=== PATIENT | male | born 1945 | race Caucasian/White ===

== ENCOUNTER 2018-06-26 09:42 | Inpatient (IN) | payer MEDICARE, OTHER ==
[~2018-06-26] VITALS: Ht 180.3 cm; Wt 77.6 kg
[~2018-06-26 09:42] MED LIST: ADULT LOW DOSE81 MG; ATIVAN; BACLOFEN 10MG T10 M1; DILAUDID2 M1 PO; HYDROCODON-ACE1 EACH; LASIX 40 MG TAB40 M2 PO; METFORMIN; PLAVIX 75 MG TA75 M1 PO
[2018-06-26 09:45] VITALS: BP 115/76
[2018-06-26] MEDS ORDERED: SYNTHROID50 MCG PO (09:55)
[2018-06-26] MEDS ORDERED: WELLBUTRIN SR150 MG PO (09:56)
[2018-06-26] MEDS ORDERED: CELEXA40 MG PO (09:56)
[2018-06-26] MEDS ORDERED: LIPITOR40 MG PO (09:57)
[2018-06-26] MEDS ORDERED: SINGULAIR 10 MG10 M1 PO (09:57)
[2018-06-26] MEDS ORDERED: ASPIR 8181 M1 PO (09:57)
[2018-06-26] MEDS ORDERED: PACERONE 200 M200 M1 PO (09:58)
[2018-06-26] MEDS ORDERED: LASIX 40 MG TAB40 M2 PO (09:58)
[2018-06-26] MEDS ORDERED: CARVEDILOL12.5 MG PO (09:58)
[2018-06-26] MEDS ORDERED: NITROFURANTOIN100 MG PO (09:59)
[2018-06-26] MEDS ORDERED: BROVANA15 MCG/2 M INH (09:59)
[2018-06-26] MEDS ORDERED: K-DUR 20 MEQ T20 MEQ PO (09:59)
[2018-06-26] MEDS ORDERED: DILAUDID 2 MG TA2 MG PO (10:00)
[2018-06-26] MEDS ORDERED: HYDROXYZINE HCL25 M1 PO (10:00)
[2018-06-26] MEDS ORDERED: PULMICORT0.5 MG/22 INH (10:00)
[2018-06-26] MEDS ORDERED: MUCUS RELIEF C400 MG PO (10:23)
[2018-06-26 10:38] LABS: BE 2.3 mmol/L (-2 to +3); PCO2 35.3 mmHg (35.0-45.0); PO2 77.5 mmHg (75.0-100.0); pH 7.479 (7.340-7.450)
[2018-06-26 11:49] LABS: ABSOLUTE BASOPHILS 0.1 thou/uL (0.0-0.2); ABSOLUTE EOSINOPHILS 0.2 thou/uL (0.0-0.7); ABSOLUTE LYMPHOCYTES 1.6 thou/uL (0.8-5.3); ABSOLUTE NEUTROPHILS 11.8 thou/uL (1.6-8.1); BASOPHILS 0.6 %; EOSINOPHILS 1.1 %; HEMATOCRIT 37.3 % (42.0-52.0); HEMOGLOBIN 11.7 gm/dL (14.0-18.0); LYMPHOCYTES 10.7 %; MCH 26.1 pg (26.0-34.0); MCHC 31.2 g/dL (28.0-37.0); MCV 83.7 fL (80.0-100.0); MONOCYTES 6.9 %; MPV 7.3 fl. (7.2-11.1); NUCLEATED RBCS 0 /100WBC; PLATELET COUNT* 471 thou/uL (150-400); POLYS 80.7 %; RBC 4.46 mil/uL (4.50-6.00); RDW-CV 15.6 % (10.5-14.5); WBC 14.6 thou/uL (4.0-11.0)
[2018-06-26 12:03] LABS: ALBUMIN 3.2 g/dL (3.4-5.0); CALCIUM 8.4 mg/dL (8.5-10.1); CREATININE 1.2 mg/dL (0.6-1.3); MAGNESIUM 2.1 mg/dL (1.8-2.4); POTASSIUM 4.4 mmol/L (3.5-5.1); TOTAL BILIRUBIN 0.5 mg/dL (<0.1-1.0); TOTAL PROTEIN 7.2 g/dL (6.4-8.2)
[2018-06-26 12:18] LABS: URINE BILIRUBIN NEGATIVE (Negative); URINE BLOOD NEGATIVE (Negative); URINE CLARITY CLEAR; URINE COLOR YELLOW; URINE GLUCOSE-RANDOM NEGATIVE (Negative); URINE KETONES NEGATIVE (Negative); URINE LEUKOCYTES-REFLEX TRACE (Negative); URINE NITRITE-REFLEX NEGATIVE (Negative); URINE PROTEIN NEGATIVE (Negative); URINE UROBILINOGEN 0.2 E.U./dl (0.2-1.0)
[2018-06-26 12:37] LABS: SQUAMOUS 0-3 Few /LPF (0-3)
[2018-06-26 12:38] LABS: BACTERIA-REFLEX 1-9 Few /HPF (None Seen); MUCUS 0-3 Light strn/LPF (None Seen); URINE RBC 0-2 Rare /HPF (0-2); URINE WBC-REFLEX 6-15 Few /HPF (0-5)
[2018-06-26 12:39] LABS: CRYSTALS None Seen /LPF (None Seen); HYALINE CASTS 0-3 Few /LPF (None Seen)
[2018-06-26 14:30] VITALS: BP 107/59
[2018-06-26 14:43] VITALS: BP 105/51
[2018-06-26 20:00] VITALS: BP 112/60
[2018-06-27 08:10] VITALS: BP 98/62
--- NOTE | 2018-06-27 13:01 | EKG ---
[place] [address] ELECTROCARDIOGRAM REPORT Name: TONY TONEY Room: [address] ADM IN M.R.#: [id number] Admission: 06/26/18 Attend Phys: Melani Saucedo MD Discharge: Date of : 45 Report #: [id number] THIS REPORT FOR: //name// [facility] ED Test Date: 2018-06-26 Test Time: 09:49:51 Pat Name: TONY TONEY Department: Room: [address] Gender: M Slitter Operator: Alton TORRE : 1945 Requested By: Lindy Hoyos Order Number: [id number] Lizbeth MD: Tony Dockery Measurements Intervals [place] Rate: 70 P: 38 KS: 222 QRS: 4 QRSD: 117 T: -38 QT: 498 QTc: 538 Interpretive Statements Sinus tachycardia Prolonged KS interval Probable left atrial enlargement artifact noted Inferior infarct, age indeterminate No previous ECG available for comparison Electronically Signed On 06-27-2018 13:01:09 CDT by Tony Dockery [email or web address] <ELECTRONICALLY SIGNED> By: Tony Dockery MD, [facility] 06/27/18 1301 0949 0949 Tony Dockery MD, [facility] /EPI
[2018-06-27 16:18] VITALS: BP 106/67
[2018-06-27 20:00] VITALS: BP 126/67
[2018-06-28 07:40] VITALS: BP 124/61
[2018-06-28 20:00] VITALS: BP 114/70
[2018-06-29 04:49] LABS: HEMATOCRIT 38.7 % (42.0-52.0); HEMOGLOBIN 12.4 gm/dL (14.0-18.0); MCHC 31.9 g/dL (28.0-37.0); MCV 84.5 fL (80.0-100.0); MPV 7.7 fl. (7.2-11.1); RBC 4.58 mil/uL (4.50-6.00); RDW-CV 15.7 % (10.5-14.5)
[2018-06-29 05:06] LABS: CALCIUM 8.6 mg/dL (8.5-10.1); CREATININE 1.2 mg/dL (0.6-1.3); MAGNESIUM 2.7 mg/dL (1.8-2.4); POTASSIUM 4.6 mmol/L (3.5-5.1)
[2018-06-29 08:00] VITALS: BP 107/64; BP 138/64
--- NOTE | 2018-06-29 12:01 | CON ---
[address] [address] CONSULTATION Name: TONY TONEY Room: [address] IN .R.#: [id number] Admission: 06/26/18 Attend Phys: Melani Saucedo MD Discharge: Date of : 45 Report #: [id number] THIS REPORT FOR: //name// CC: Neel Saucedo DATE OF SERVICE: 06/28/2018 INFECTIOUS DISEASE CONSULTATION REASON FOR EVALUATION: Suspected infection that has been complicated by fairly profound encephalopathy. HISTORY OF PRESENT ILLNESS: Chart reviewed, patient examined. This is a 73-year-old gentleman. History is obtained from his spouse. He has a fairly significant medical history of late. Apparently, he had an injury involving a fall with hip fracture, which led to operative repair and at least 2 stents in the rehabilitation unit. He was at home after being discharged and clearly was becoming weaker and more confused. It is not certain if he was having fevers. He had a poor p.o. intake at least for a week or 2 prior to his readmission. On evaluation, he was found to have some moderate pyuria. Chest x-ray, some chronic changes, which I think acute. He does have longstanding issues with back pain. Has had at least 5 surgeries and he does wear a brace. He has a pain pump as well and a pacemaker. Per spouse, none of these surgeries were directly related to infectious complications. He was started empirically on therapy with ceftriaxone. Blood and urine cultures are pending. Presently, he is undergoing evaluation for profound neurological deficits with EEG, markedly loosening last evening and required psychotropic medicines. Per spouse, his baseline is normal mentation. He is able to do activities, however, has limitations due to his underlying physical disability. ALLERGIES: LISTED TO PENICILLIN, UNCLEAR. SPOUSE DESCRIBES A RASH, ALTHOUGH WAS A NUMBER OF YEARS AGO, ALSO TETANUS. MEDICATIONS: Include p.r.n. analgesics, antiemetics, anxiolytics, ipratropium and albuterol inhaler, aspirin, atorvastatin, bupropion, citalopram, clopidogrel, levothyroxine, furosemide, amiodarone, montelukast, ceftriaxone, carvedilol and then received Haldol as well. PAST MEDICAL HISTORY: The patient has known vasculopathy with coronary artery disease, previous acute myocardial infarction, history of stents, COPD. PAST SURGICAL HISTORY: Back surgery, recent hip fracture. SOCIAL HISTORY: Former sm[place] [address] CONSULTATION Name: DAWNATONY Carolann Room: [address]#: [id number] Admission: 06/26/18 Attend Phys: Melani Saucedo MD Discharge: Date of : 45 Report #: [id number] FAMILY HISTORY: Noncontributory. REVIEW OF SYSTEMS: Not obtainable. PHYSICAL EXAMINATION: GENERAL: Again, as noted above, he is undergoing EEG. He appears chronically ill, undernourished. He is sedated. He is not on any supplemental oxygen. VITAL SIGNS: Temperature 96.8, pulse 70, respirations 22, blood pressure 124/61. SKIN: Extensive contused areas, particularly of the upper extremities. Some eschars consistent with his recent hospitalization and stay in facilities. HEENT: Of note, his spouse states that he has dentures and has it for a long time. NECK: Appears to be supple. LUNGS: Somewhat diminished, otherwise clear breath sounds. HEART: Regular with a soft systolic murmur. ABDOMEN: Soft. There are no apparent peritoneal signs. EXTREMITIES: Lower extremities, mild amount of edema. GENITOURINARY: Deferred. RECTAL: Deferred. LABORATORY DATA: Blood cultures are sterile thus far. CT of the head showed atrophic changes, no acute process. Urinalysis 6-15 white cells, 1-9 bacteria, negative for nitrites and protein. TSH elevated at 18.566, free T4 at 1.05. Lactic acid 1.1. Electrolytes: Sodium 136, potassium 4.4, chloride 99, bicarbonate is 30, anion gap of 7, BUN and creatinine 18 and 1.2, glucose of 96. AST of 108, ALT of 166, albumin of 3.2, total protein 7.2. CBC: White count of 14.6, H and H 11.7 and 37.3, platelets 471. Differential showed neutrophilia, otherwise unremarkable. Chest showed patchy interstitial fibrosis without acute process. ABGs: pH 7.479, pCO2 of 35.3, pO2 of 77.5 on 4 liters. ASSESSMENT: Marked encephalopathy, may well be multifactorial. Certainly can exclude occult infectious process, complicated urinary tract infection would be the most likely, I think in this setting, although he has been hallucinating, there may well be some multifactorial etiology including medicines. We will continue ceftriaxone for now and we will await urine and blood cultures. Certainly, he has other foci of concern including hip as well as lower back. Could consider a lumbar puncture if signs and symptoms persist at this point, not entirely sure if it is meningitis. Would certainly consider starting systemic acyclovir as well. 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 <ELECTRONICALLY SIGNED> By: Everton De Jesus MD 06/29/18 1201 1308 0400Josereza De Jesus MD /nam
[2018-06-29 13:29] LABS: URINE BILIRUBIN NEGATIVE (Negative); URINE BLOOD NEGATIVE (Negative); URINE CLARITY CLEAR; URINE COLOR YELLOW; URINE GLUCOSE-RANDOM NEGATIVE (Negative); URINE KETONES NEGATIVE (Negative); URINE LEUKOCYTES-REFLEX NEGATIVE (Negative); URINE NITRITE-REFLEX NEGATIVE (Negative); URINE PROTEIN NEGATIVE (Negative); URINE SPECIFIC GRAVITY 1.015 (1.005-1.030); URINE UROBILINOGEN 0.2 E.U./dl (0.2-1.0)
[2018-06-29 16:02] VITALS: BP 102/62
[2018-06-29 20:30] VITALS: BP 100/52
[2018-06-30 08:00] VITALS: BP 92/40
[2018-06-30 09:00] VITALS: BP 108/59
[2018-06-30 16:09] VITALS: BP 112/71
[2018-06-30 20:15] VITALS: BP 119/65
[2018-07-01 12:11] VITALS: BP 114/59
--- NOTE | 2018-07-01 14:34 | 2DMMODE ---
[place] [address] 2 D/M-MODE ECHOCARDIOGRAM Name: TONY TONEY Room: [address] IN [facility]#: [id number] Admission: 06/26/18 Attend Phys: Melani Saucedo, Discharge: Date of : 45 Date of Service: 07/01/18 1434 Report #: [id number] THIS REPORT FOR: //name// APPROVED REPORT Study performed: 07/01/2018 11:17:00 EXAM: Comprehensive 2D, Doppler, and color-flow Echocardiogram Patient Location: In-Patient Room #: [facility] Status: routine BSA: 2.01 HR: 70 bpm BP: 114/595 mmHg Rhythm: NSR Other Information Study Quality: Good Indications Congestive Heart Failure CVA/TIA Echo Enhancing Agent Indication: Rule out Shunt Agent(s) / Amount(s) Used: Agitated Saline 10 cc 2D Dimensions IVSd: 13.23 (7-11mm) LVOT Diam: 21.11 (18-24mm) LVDd: 59.73 mm PWd: 9.68 (7-11mm) Ascending Ao: 31.65 (22-36mm) LVDs: 44.90 (25-40mm) Aortic Root: 31.84 mm Volumes Left Atrial Volume (Systole) LA ESV Index: 30.30 mL/m2 Aortic Valve AoV Peak Watson.: 1.20 m/s AO Peak Gr.: 5.81 mmHg LVOT Max P.73 mmHg AO Mean Gr.: 3.63 mmHg LVOT Mean P.34 mmHg LVOT Max V: 0.83 m/s AO V2 VTI: 20.51 cm LVOT Mean V: 0.53 m/s ANGELA (VTI): 2.47 cm2 LVOT V1 VTI: 14.44 [place] [address] 2 D/M-MODE ECHOCARDIOGRAM Name: TONY TONEY Room: [address] IN .R.#: [id number] Admission: 06/26/18 Attend Phys: Melani Saucedo, Discharge: Date of : 45 Date of Service: 07/01/18 1434 Report #: [id number] Mitral Valve E/A Ratio: 0.60 MV Decel. Time: 113.66 ms MV E Max Watson.: 0.49 m/s MV PHT: 32.96 ms MVA (PHT): 6.67 cm2 TDI E/Medial E': 8.17 Medial E' Watson.: 0.06 m/s Tricuspid Valve RAP Estimate: 5.00 mmHg TR Peak Gr.: 23.10 mmHg RVSP: 28.00 mmHg PA Pressure: 28.00 mmHg Left Ventricle The left ventricle is normal size. There is inferobasilar and septal hypokinesis. There is normal left ventricular wall thickness. Left ventricular systolic function is moderately decreased. LVEF is 40%. Grade I - abnormal relaxation pattern. Right Ventricle The right ventricle is normal size. The right ventricular systolic function is normal. Atria The left atrium size is normal. The right atrium size is normal. Aortic Valve Mild aortic valve sclerosis. No aortic regurgitation is present. There is no aortic valvular stenosis. Mitral Valve The mitral valve is normal in structur Moderate mitral annular calcification. Moderate mitral annular calcification. Moderate mitral annular calcification. There is no mitral valve regurgitation noted. No evidence of mitral valve stenosis. Tricuspid Valve The tricuspid valve is normal in structure. Trace tricuspid regurgitation. No pulmonary hypertension[place] [address] 2 D/M-MODE ECHOCARDIOGRAM Name: TONY TONEY Room: [address]#: [id number] Admission: 06/26/18 Attend Phys: Melani Saucedo, Discharge: Date of : 45 Date of Service: 07/01/18 1434 Report #: [id number] The pulmonary valve is normal in structure. There is no pulmonic valvular regurgitation. Great Vessels The aortic root is normal in size. IVC is normal in size and collapses >50% with inspiration. Pericardium There is no pericardial effusion. <Conclusion> The left ventricle is normal size. There is normal left ventricular wall thickness. Left ventricular systolic function is moderately decreased. LVEF is 40%. Grade I - abnormal relaxation pattern. The right ventricle is normal size. The left atrium size is normal. Mild aortic valve sclerosis. No aortic regurgitation is present. There is no aortic valvular stenosis. Moderate mitral annular calcification. There is no mitral valve regurgitation noted. No evidence of mitral valve stenosis. The tricuspid valve is normal in structure. IVC is normal in size and collapses >50% with inspiration. There is no pericardial effusion. There is inferobasilar and septal hypokinesis. <ELECTRONICALLY SIGNED> By: Neel Quiros MD, FACC 07/01/18 1434 1434 1434 Neel Quiros MD, FACC /INF
[2018-07-01 15:18] VITALS: BP 122/70
[2018-07-01 19:45] VITALS: BP 99/61
[2018-07-02 05:36] LABS: ANION GAP 7 mmol/L (7-16); BUN 24 mg/dL (7-18); CALCIUM 8.3 mg/dL (8.5-10.1); CHLORIDE 104 mmol/L (98-107); CHOLESTEROL 126 mg/dL (<200); CO2 26 mmol/L (21-32); CREATININE 1.5 mg/dL (0.6-1.3); GLUCOSE 107 mg/dL (70-99); HDL CHOLESTEROL 51 mg/dL (>40); LDL CHOLESTEROL 60 mg/dL (<100); SODIUM 137 mmol/L (136-145); TC:HDL 2.5 Ratio (Not establshd); TRIGLYCERIDE 76 mg/dL (<150); VLDL 15 mg/dL (<40)
[2018-07-02 05:44] LABS: SERUM ASSESSMENT Clear
[2018-07-02 06:09] LABS: ABSOLUTE BASOPHILS 0.1 thou/uL (0.0-0.2); ABSOLUTE EOSINOPHILS 0.5 thou/uL (0.0-0.7); ABSOLUTE LYMPHOCYTES 1.7 thou/uL (0.8-5.3); ABSOLUTE MONOCYTES 0.7 thou/uL (0.0-1.2); ABSOLUTE NEUTROPHILS 8.2 thou/uL (1.6-8.1); BASOPHILS 0.6 %; EOSINOPHILS 4.8 %; HEMATOCRIT 33.4 % (42.0-52.0); HEMOGLOBIN 10.5 gm/dL (14.0-18.0); LYMPHOCYTES 14.8 %; MCH 26.8 pg (26.0-34.0); MCHC 31.4 g/dL (28.0-37.0); MCV 85.2 fL (80.0-100.0); MONOCYTES 6.3 %; MPV 8.1 fl. (7.2-11.1); NUCLEATED RBCS 0 /100WBC; PLATELET COUNT* 321 thou/uL (150-400); POLYS 73.5 %; RBC 3.92 mil/uL (4.50-6.00); RDW-CV 15.8 % (10.5-14.5); WBC 11.2 thou/uL (4.0-11.0)
[2018-07-02 16:08] VITALS: BP 87/51
[2018-07-02 20:10] VITALS: BP 143/78
[2018-07-03 09:00] VITALS: BP 109/54
[2018-07-03 09:22] LABS: CALCIUM 8.3 mg/dL (8.5-10.1); CREATININE 1.1 mg/dL (0.6-1.3); MAGNESIUM 2.1 mg/dL (1.8-2.4); POTASSIUM 4.2 mmol/L (3.5-5.1)
[2018-07-03 20:00] VITALS: BP 121/57
[2018-07-04 04:44] LABS: ABSOLUTE BASOPHILS 0.1 thou/uL (0.0-0.2); ABSOLUTE EOSINOPHILS 0.5 thou/uL (0.0-0.7); ABSOLUTE LYMPHOCYTES 1.5 thou/uL (0.8-5.3); ABSOLUTE MONOCYTES 0.9 thou/uL (0.0-1.2); ABSOLUTE NEUTROPHILS 6.2 thou/uL (1.6-8.1); BASOPHILS 1.1 %; EOSINOPHILS 5.1 %; HEMATOCRIT 33.1 % (42.0-52.0); HEMOGLOBIN 10.4 gm/dL (14.0-18.0); LYMPHOCYTES 15.9 %; MCH 26.6 pg (26.0-34.0); MCHC 31.3 g/dL (28.0-37.0); MONOCYTES 9.7 %; MPV 7.6 fl. (7.2-11.1); NUCLEATED RBCS 0 /100WBC; PLATELET COUNT* 319 thou/uL (150-400); POLYS 68.2 %; RBC 3.89 mil/uL (4.50-6.00); RDW-CV 15.4 % (10.5-14.5); WBC 9.1 thou/uL (4.0-11.0)
[2018-07-04 05:12] LABS: CALCIUM 8.2 mg/dL (8.5-10.1); MAGNESIUM 1.8 mg/dL (1.8-2.4)
[2018-07-04 08:00] VITALS: BP 124/61
[2018-07-04] MEDS ORDERED: REMERON15 MG PO (11:27)
[2018-07-04] MEDS ORDERED: CYMBALTA30 MG PO (11:27)
[2018-07-04] MEDS ORDERED: FLEXERIL PO (11:27)
[2018-07-04] MEDS ORDERED: MIRALAX17 GM PO (11:27)
[2018-07-04] MEDS ORDERED: FOLIC ACID1 MG PO (11:27)
[2018-07-04] MEDS ORDERED: SENNA PLUS TAB1 EACH PO (11:27)
[2018-07-04] MEDS ORDERED: PROTONIX 20 MG20 M1 PO (11:33)
--- NOTE | 2018-07-04 13:37 | EEG ---
[address] [address] EEG STUDY REPORT Name: TONY TONEY Room: [address] IN M.R.#: [id number] Admission: 06/26/18 Attend Phys: Melani Saucedo MD Discharge: Date of : 45 Report #: [id number] THIS REPORT FOR: //name// CC: Neel Saucedo DATE OF SERVICE: 06/28/2018 This patient is being evaluated for altered mental status. EEG was done by placing the electrode by standard 10-20 system of electrode placement. Both referential and sequential montages were used for recording. Background activity in this patient's EEG is about 8 Hz and 30 microvolt. It is a symmetrical activity. The patient went to sleep that is associated with bilateral slowing and vertex sharp waves. Photic stimulation is unremarkable. Throughout the record, no active epileptiform activity was noticed. IMPRESSION: This patient's electroencephalogram is intermixed with slowing on both sides. That is a nonspecific abnormality, which can occur with encephalopathy, effect of psychotropic medication, dementia, etc. Clinical correlation is recommended. <ELECTRONICALLY SIGNED> By: Fran Bowser MD 07/04/18 1337 1242 1315Fran Bowser MD /nt
--- NOTE | 2018-07-04 13:37 | CON ---
[address] [address] CONSULTATION Name: TONY TONEY Room: [address] IN .R.#: [id number] Admission: 06/26/18 Attend Phys: Melani Saucedo MD Discharge: Date of : 45 Report #: [id number] THIS REPORT FOR: //name// CC: Neel Saucedo DATE OF SERVICE: 06/28/2018 HISTORY OF PRESENT ILLNESS: This is a 73-year-old male patient who was evaluated by me for altered mental status. The provides history. It looks like the patient had been in the hospitals for sometime now. He fell and broke his hip in March. He did have some head injury at that time. Since then, his mentation has not been good. He is not remembering months and days. I do not know which hospital he was in when he had head injury. He was taken to [facility] who found his potassium was low and they replaced the potassium. His potassium has been normal. He continued to do poorly. He has never been diagnosed with dementia as I understand from the patient's . This problem is going on for some time but the last night, he got agitated and confused. REVIEW OF SYSTEMS: Indicate that he had a hip problem. He has a pain pump. He has some metal in his spine, which was put long time ago. He has a pacemaker and defibrillator according to the patient's . Therefore, he is not a candidate for any MRI. The best I can tell, I do not think his memory was normal before he came in. He does have liver function abnormalities. He has a thyroid problem here. He has on the EKG and inferior infarct and left atrial enlargement. That is all the history I can get. REVIEW OF SYSTEMS: I touched 14-point review of system. The patient will not provide any and this is all I can get from the patient's and from the record. PAST MEDICAL HISTORY: Positive for broken hip and multiple metal in the body with contraindication for MRI. FAMILY HISTORY: Negative for early age stroke. SOCIAL HISTORY: The patient is and the provided most of the history. Apparently, he does not abuse the alcohol. PHYSICAL EXAMINATION: NEUROLOGICAL: Limited because he refused to cooperate. He is sleepy. He wakes up. When I told him to cooperate with me, he said he will not do it today. Cranial nerve examination 2 through 12 was attempted, but he refused to cooperate. It looks like he moves both sides, but he refused to cooperate with the sensation, reflexes and tone. There is no meningeal sign in as much [place] [address] CONSULTATION Name: TONY TONEY Room: [address] IN .R.#: [id number] Admission: 06/26/18 Attend Phys: Melani Saucedo MD Discharge: Date of : 45 Report #: [id number]. CARDIORESPIRATORY: Cardiac and respiratory examinations appear noncontributory. LABORATORY DATA: His white count is high at 14.6 and sodium is normal. RADIOLOGICAL DATA: He did have a CT scan on admission and that showed atrophy. IMPRESSION AND PLAN: I think this patient has significant encephalopathy. He is having some jerking and will get an electroencephalogram done to see if that shows any seizure activity. His problem appeared to be sepsis and we will suggest considering an Infectious Disease consult in this patient. Central nervous system infections appear less likely. I talked all of it with the and she wants to follow this plan and MRI is desirable in this patient, but cannot be done with so many metals and contraindication. All of it was discussed with the in detail. More than 50 minutes of time was spent taking care of this patient today and majority of that time was spent counseling and coordinating the patient's care. <ELECTRONICALLY SIGNED> By: Fran Bowser MD 07/04/18 1337 1057 0400Fran Bowser MD /nt
[2018-07-04 17:57] VITALS: BP 124/61
[2018-07-04 17:58] VITALS: BP 124/61
[2018-07-04 18:20] VITALS: BP 124/61
== END 2018-07-04 18:10 | DRG 871 ==
LOC: EDBD 09:42 → M.ERS 09:42 → M.ORTHSURG 12:23 → M.TBA-ER 12:23 → M.ORTHSURG 14:45
PROVIDERS: Family Medicine; Personal Emergency Response Attendant; ADMIT Internal Medicine
DX: A41.9 Sepsis, unspecified organism (principal); G92 Toxic encephalopathy; J15.6 Pneumonia due to other Gram-negative bacteria; N17.0 Acute kidney failure with tubular necrosis; N39.0 Urinary tract infection, site not specified; J96.11 Chronic respiratory failure with hypoxia; J44.0 Chronic obstructive pulmonary disease with (acute) lower respiratory infection; R26.9 Unspecified abnormalities of gait and mobility; I25.10 Atherosclerotic heart disease of native coronary artery without angina pectoris; K59.03 Drug induced constipation; K31.89 Other diseases of stomach and duodenum; M21.371 Foot drop, right foot; N18.3 Chronic kidney disease, stage 3 (moderate); T40.2X5A Adverse effect of other opioids, initial encounter; M54.9 Dorsalgia, unspecified; G89.29 Other chronic pain; F03.90 Unspecified dementia, unspecified severity, without behavioral disturbance, psychotic disturbance, mood disturbance, and anxiety; R74.0 Nonspecific elevation of levels of transaminase and lactic acid dehydrogenase [LDH]; K59.01 Slow transit constipation; I25.2 Old myocardial infarction; Z95.5 Presence of coronary angioplasty implant and graft; Z79.82 Long term (current) use of aspirin; Z88.0 Allergy status to penicillin; Z88.7 Allergy status to serum and vaccine; Z88.8 Allergy status to other drugs, medicaments and biological substances; Z87.891 Personal history of nicotine dependence; Y92.89 Other specified places as the place of occurrence of the external cause

== ENCOUNTER 2018-07-04 16:01 | Inpatient (IN) | payer MEDICARE, OTHER ==
[~2018-07-04] VITALS: Ht 180.3 cm; Wt 80.3 kg
[~2018-07-04 16:01] MED LIST changes: +ASPIR 8181 M1 PO; +BROVANA15 MCG/2 M INH; +CARVEDILOL12.5 MG PO; +CELEXA40 MG PO; +CYMBALTA30 MG PO; +DILAUDID 2 MG TA2 MG PO; +FLEXERIL PO; +FOLIC ACID1 MG PO; +HYDROXYZINE HCL25 M1 PO; +K-DUR 20 MEQ T20 MEQ PO; +LIPITOR40 MG PO; +MIRALAX17 GM PO; +MUCUS RELIEF C400 MG PO; +NITROFURANTOIN100 MG PO; +PACERONE 200 M200 M1 PO; +PROTONIX 20 MG20 M1 PO; +PULMICORT0.5 MG/22 INH; +REMERON15 MG PO; +SENNA PLUS TAB1 EACH PO; +SINGULAIR 10 MG10 M1 PO; +SYNTHROID50 MCG PO; +WELLBUTRIN SR150 MG PO
[2018-07-04 18:30] VITALS: BP 89/45
[2018-07-05 04:30] LABS: ABSOLUTE BASOPHILS 0.1 thou/uL (0.0-0.2); ABSOLUTE EOSINOPHILS 0.4 thou/uL (0.0-0.7); ABSOLUTE LYMPHOCYTES 1.4 thou/uL (0.8-5.3); ABSOLUTE MONOCYTES 0.7 thou/uL (0.0-1.2); ABSOLUTE NEUTROPHILS 3.3 thou/uL (1.6-8.1); EOSINOPHILS 6.7 %; HEMATOCRIT 33.1 % (42.0-52.0); HEMOGLOBIN 10.6 gm/dL (14.0-18.0); LYMPHOCYTES 24.4 %; MCHC 31.9 g/dL (28.0-37.0); MCV 84.5 fL (80.0-100.0); MONOCYTES 11.7 %; MPV 7.7 fl. (7.2-11.1); NUCLEATED RBCS 0 /100WBC; PLATELET COUNT* 271 thou/uL (150-400); POLYS 56.2 %; RBC 3.91 mil/uL (4.50-6.00); RDW-CV 15.6 % (10.5-14.5); WBC 5.9 thou/uL (4.0-11.0)
[2018-07-05 05:00] LABS: ALBUMIN 2.4 g/dL (3.4-5.0); CALCIUM 8.3 mg/dL (8.5-10.1); POTASSIUM 4.1 mmol/L (3.5-5.1); TOTAL BILIRUBIN 0.3 mg/dL (<0.1-1.0)
--- NOTE | 2018-07-05 05:23 | NUR ---
ASSUMED PT CARE AT 1930. PT HAD TRANSFERRED FROM [facility]. ADMISSION PAPERWORK AND DATABASES COMPLETED. PT POLITE AND COOPERATIVE WITH CARES. AT BEDSIDE OVERNIGHT. PT HAS HEALING ABRASION ON RIGHT HEEL, MEPILEX APPLIED. PT HAS REDNESS IN GLUTEAL FOLD. PERICARE PERFORMED AND BARRIER CREAM APPLIED. PT HAS EXTENSIVE BRUISING ON UPPER EXTREMITIES FROM TAKING BLOOD THINNERS. WEARING 4L 02 PER NC. PT WEARING BACK BRACE AROUND PELVIS AND RIGHT UPPER THIGH. REFUSED TURNS OVERNIGHT, DIFFICULT TO TURN WITH WEIGHT AND CONFINES OF BRACE. PIV TO LEFT FOREARM REMOVED, PT HAS VERY FRAGILE SKIN. PT VOIDED PER URINAL OVERNIGHT, STAFF OR EMPTIED. NO STOOL THIS SHIFT. PT HAS CARDIAC HX AND PACEMAKER. PT TOOK DILAUDID TWICE OVERNIGHT FOR BACK AND LEG PAIN. PT TAKES DILAUDED AT HOME FOR PAIN. USED CALL LIGHT APPROPRIATELY. CALL LIGHT AND FREQUENTLY USED ITEMS WITHIN REACH. BED ALARM ON FOR SAFETY. HOURLY ROUNDING IN PROGRESS, WILL CONTINUE TO MONITOR.
[2018-07-05 08:00] VITALS: BP 147/75
--- NOTE | 2018-07-05 13:56 | NUR ---
Nutrition: Pt admitted to rehab with encephalopathy. H/o dementia, COPD. Albumin 3.2. Pt and stated today that his usual wt is ~180#. Current wt is that, 183#. He stated his pressure ulcer is healed. He is eating well, good appetite. They were not given a menu - RD provided one to them. Low nutrition risk. Will follow weekly.
--- NOTE | 2018-07-05 14:04 | NUR ---
Nutrition: Consult received for "diet." Pt has just been made CLD from NPO. ISO also taken off at this time. Admitted with SBO. Wt: 200# Pt calling out in pain, naked on bed. Spoke with RN. Albumin 2.4. Hx, RX noted. +BM formed BM today. Hopeful for good po tolerance. GOAL: advance to Soft/low fiber diet. Mild risk at this time.
--- NOTE | 2018-07-05 14:51 | NUR ---
WOUND CARE NOTE: CONSULT RECEIVED FOR RIGHT HEEL, GLUTEAL FOLD PATIENT PRESENTS WITH A FULL THICKNESS ULCERATION TO THE RIGHT HEEL. DUSTY-WOUND WITH DRY, BROWN NON-VIABLE TISSUE. WOUND BED IS MOIST WITH A YELLOW SLOUGH TISSUE FIRMLY ADHERENT TO ENTIRETY OF WOUND BED. WOUND MEASURES 1X0.5X0.2. CLEANSED WELL WITH WOUND CLEANSER, PATTED DRY. APPLIED OPTIFOAM AG AND SECURED WITH ROLL GAUZE. PATIENT STATES HIS HAS BEEN 'DOCTORING' IT FOR AWHILE. BOTH AND PATIENT ARE UNSURE OF ETIOLOGY. PATIENT ALSO PRESENTS WITH PARTIAL THICKNESS EROSIONS TO BILATERAL BUTTOCKS AND SACRAL AREA. APPEARS TO BE FRICTION RELATED WITH A FUNGAL COMPONENT THERE ARE MANY SATELITE LESIONS. APPLIED BARRIER OINTMENT WITH ANTIFUNGAL. EDUCATED PATIENT AND ON DRESSING/OINTMENT SELECTION, COMMUNICATED UNDERSTANDING. THANKFUL FOR THE ASSISTANCE. RECOMMEND TURN Q2 HOURS BARRIER OINTMENT WITH ANTIFUNGAL CHANGE DRESSING TO RIGHT HEEL Q3 DAYS AND PRN-OPTIFOAM AG WITH ROLL GAUZE. ENCOURAGE GOOD NUTRTION/HYDRATION WAFFLE CUSHION WHEN IN CHAIR ENCOURAGE PATIENT TO LIFT SELF INSTEAD OF SCOOTING
--- NOTE | 2018-07-05 16:00 | NUR ---
SW met with pt and pt to complete initial assessments, introduce self, and SW role on inpt rehab unit. Pt alert, oriented, pleasant. Pt lives at home with his . Pt has hx of [place] in rehab, hx [facility] and hx of [facility]. Pt has pain pump through [employer]; SW has received several calls in regards to pain pump through [employer] Soha [phone], Kaye Minor [phone] and Aaliyah Harrell [phone]. Pain pump due to be refilled by /. SW to continue to follow to assist with safe dc planning.
--- NOTE | 2018-07-05 16:28 | NUR ---
ASSUMMED CARE OF PT AT 0730, PT ALERT AND ORIENTED, TRANSFERS WITH ASSIST OF 2, PIVOT INTO CHAIR, RIGHT LEG BRACE TO UPPER THIGH, COMPLAINED OF NAUSEA WITH LARGE EMESIS THIS AM, ORDER FOR ANTIEMETIC OBTAINED AND GIVEN, PT COMPLAINS OF SLIGHT NAUSEA REMAINDER OF SHIFT BUT DID TOLERATE FOOD AND FLUIDS, COMPLAINED OF BACK PAIN, MEDICATED X 1 FOR PAIN WITH GD RELIEF, PT REPOSTIONED EVERY 2 HOURS, WAFFLE CUSHION TO CHAIR, O2 ON AT 4 LITERS, WOUND CARE NURSE ASSESSED PT BUTTOCKS AND LEFT HEEL, ORDERS FOR DRESSING CHANGES APPLIED. PT OBTAINS SKIN TEARS EASILY ON ARMS, WILL BRING LONG SLEEVE SHIRTS TO HELP AVOID FURTHER SKIN TEARS. PT PARTICIPATED IN ALL THERAPIES, HOURLY ROUNDING COMPLETED, ASSESSMENT COMPLETE, WILL CONTINUE TO MONITOR.
[2018-07-05 20:00] VITALS: BP 116/66
--- NOTE | 2018-07-06 05:12 | NUR ---
ASSUMED PT CARE AT 1930. PT ALERT AND ORIENTED X4, POLITE AND COOPERATIVE WITH CARES. PT SITTING UP IN RECLINER AT SHIFT CHANGE. FIRST ATTEMPT TO MOVE PT FROM RECLINER TO BED WAS UNSUCCESSFUL. WITH MAX ASSIST OF 2, PT STOOD UP, WAS HOLDING ON TO WALKER AND THEN STARTED TO FALL BACKWARDS. PT WAS LOWERED BACK INTO RECLINER WITHOUT INJURY TO PATIENT. THIRD PERSON WAS RECRUITED TO ASSIST, PT WAS TRANSFERRED FROM RECLINER TO BED WITH MAX ASSIST OF THREE. PER PATIENT HIS RIGHT LEG "WASN'T WORKING". PT WEARING BRACE TO RIGHT LEG. NO NAUSEA THIS SHIFT. PT HAD PRN HYDROCODONE TWICE THIS SHIFT FOR BACK PAIN. PT DID NOT SLEEP WELL. PT ON 4L 02 PER NC. REPOSITIONED EVERY TWO HOURS. DRESSING TO RIGHT HEEL INTACT. VARIOUS BANDAGES TO NUMEROUS SKIN TEARS NOTED. ANTIFUNGAL BARRIER CREAM APPLIED TO GLUTEAL FOLD. AT BEDSIDE OVERNIGHT. CALL LIGHT AND FREQUENTLY USED ITEMS WITHIN REACH. HOURLY ROUNDING IN PROGRESS, WILL CONTINUE TO MONITOR.
[2018-07-06 09:28] VITALS: BP 149/77
[2018-07-06 09:41] VITALS: BP 149/77
--- NOTE | 2018-07-06 13:42 | NUR ---
SW met with pt and pt to review team conference summary and plan for pt to remain on rehab unit at least one more week with plan for team to reassess pt length of stay during team conference next Thursday 07/13. Pt and pt in agreement with plan. Pt and pt hopeful pt would be able/ready to dc home by 07/21 so he would be able to keep his appt for refilling pain pump. SW to continue to follow to assist with safe dc planning.
--- NOTE | 2018-07-06 17:48 | NUR ---
PATIENT ALERT AND ORIENTED X 4. DENIES COMPLAINTS. UP WITH WALKER STAND PIVIOT. TO MAIN DINNING ROOM FOR MEALS. CONT. WITH PLAN OF CARE.
[2018-07-06 20:00] VITALS: BP 132/63
--- NOTE | 2018-07-07 01:43 | NUR ---
ASSUMED CARE @ 1956-07/06-WED.APPEARS SLEEPING IN BED ON SEMI KNIGHT'S W/ O2 ON @ 3 1/ L/NC. SLEEPING ALSO IN RECLINER.BED ALARM PUT ON @ 1956.WANTS LIGHT BY DOOR ON ALL NIGHT. ASSIST W/ PLACING & EMPTYING URINAL @ NIGHT. STAYING ALL NIGHT.NOTED O2 OFF @ -07/07-WEDNESDAY.O2 PUT BACK.ON HOURLY ROUNDS.
--- NOTE | 2018-07-07 05:33 | NUR ---
SLEEPING ALREADY @ 1956 & SLEPT GOOD ALL NIGHT.REFUSED HS SNACK. ASSIST W/ URINAL @ NIGHT.SEE PAIN MANAGEMENT @ 2296.
[2018-07-07 10:54] VITALS: BP 109/67
--- NOTE | 2018-07-07 12:19 | NUR ---
PATIENT HAS BEEN TRANSFERRING FROM CHAIR TO W/C WITH ASSIST OF ONE. PATIENT WAS OFF HIS O2 HE'S SATING IN THE LOW 90S. DENIES SOA, WITHOUT.
--- NOTE | 2018-07-07 18:24 | NUR ---
PATIENT STAND PIVIOTS TO WHEELCHAIR. DENIES COMPLAINTS. TO MDR FOR MEALS. NO SIGN OF DISTRESS. CONT. WITH PLAN OF CARE.
[2018-07-07 21:20] VITALS: BP 126/69
--- NOTE | 2018-07-08 01:55 | NUR ---
ASSUMED CARE @ 1919-.APPEARS SLEEPING IN BED W/ HOB UP. @ BEDSIDE & STAYING ALL NIGHT. ASSIST W/ URINAL @ NIGHT.BRACE IN PLACE RIGHT HIP & RTIGHT LE.BED ALARM ALREADY ON @ 1919.OFFERED CRACKERS BEFORE TAKING PAIN MED TO PREVENT NAUSEA.PREFERS MILLICENT CRACKERS.SEE PAIN MANAGEMENTS @ 2102 & 118.TOOK ONE PIECE MILLICENT CRACKERS BEFORE TAKING PAIN MEDS.MOISTURE BARRIER CREAM W/ ANTI-FUNGAL APPLIED TO PINK BUTTOCKS/SACRUM @ 2129.HEELS OFF BED @ 2129-.WANTS LIGHT ON BY DOOR ALL NIGHT.ON HOURLY ROUNDS.
--- NOTE | 2018-07-08 05:39 | NUR ---
SLEEPING SINCE 1920 TO 2300 BUT AWAKE @ 0200,0300 & 0500.REFUSED HS SNACK BUT DRINKING COFFEE @ 0500.USED URINAL X4 DURING NIGHT.NO EPSODE OF NAUSEA DURING NIGHT.
[2018-07-08 08:00] VITALS: BP 128/59
--- NOTE | 2018-07-08 14:23 | NUR ---
ASSUMED CARE AT 0730. ALERT ORIENTED PLEASANT AND COOPERATIVE. HX OF COPD HIP FX RT S/P WEARS BRACE FROM HIP TO RT. LEG ALSO HAS AFO L LEG. SMALL PINK AREA NOTED TOP OF RT. FOOT BUT THE AFO BRACE ISNT RUBBING THERE AND SHOE IS SOFT. MEPILEX APPLIED TO CUSHION AREA MONITOR AGAIN WHEN PT. ISNT PARTICIPATING IN THERAPIES. FEEDS SELF TAKES MEDS WITHOUT DIFFICULTY. TRANSFERS WITH G BELT WALKER FROM BED TO RECLINER. MEDICATED WITH PRN PAIN MED FOR RT. LEG FOOT AND BACK PAIN WITH SOME RELIEF STATED. HERE WITH PT. ASSISTS WITH URINAL AND EMPTIES IT.
--- NOTE | 2018-07-08 15:18 | NUR ---
PTS. O2 SAT AT 1100 WAS 83-89 AFTER A.M. P.T.SESSION. O2 APPLIED AT 2L/M PER N/C. PT. PARTICIPATING IN O.T. BEFORE LUNCH. O.T. SAT CHECKED PER O.T. WITH ACTIVITY WAS 88% REMOVED O2 AT 1220 BEFORE HE WENT TO LUNCH IN
--- NOTE | 2018-07-08 19:35 | NUR ---
HAD A LARGE BM AT SHIFT CHANGE. DUSTY CARE PROVIDED BY STAFF. ANTIFUNGAL CREAM APPLIED TO BUTTOCKS THOUGH REDNESS OBSERVED. AMBULATED FROM THE TOILET TO BED WITH SBA, GAITBELT, WALKER AND CUEING. HAS RIGHT HIP BRACE IN PLACE. KERLIX ON DORAL AREA OF RIGHT FOOT DRY/INTACT. DENIES NEED FOR PAIN MEDICATION AT THIS TIME. STAYS WITH PATIENT AND PARTICIPATES IN HIS CARE.
[2018-07-08 20:30] VITALS: BP 114/57
--- NOTE | 2018-07-09 05:57 | NUR ---
GAVE PAIN MEDS X 2 DURING THE NIGHT PER PATIENT'S REQUEST FOR COMPLAINT OF RIGHT HIP PAIN WITH RELIEF. USED URINAL SEVERAL TIMES DURING THE NIGHT AND EMPTIES THE URINAL. REFUSES TO TURN TO HIS SIDE. HOURLY ROUNDING IN PROGRESS.
[2018-07-09 06:30] VITALS: BP 134/77
--- NOTE | 2018-07-09 18:07 | NUR ---
PATIENT ALERT AND ORIENTED X 4, TRANSFER WITH WALKER AND ASSIST OF ONE. PARTICIPATING IN THERAPIES TODAY. WALKER TO RESTROOM WITH STAND BY ASSIST. DENIES PAIN. CONT. WITH PLAN OF CARE. NO SIGN OF DISTRESS.
[2018-07-09 19:45] VITALS: BP 94/46
--- NOTE | 2018-07-09 19:45 | NUR ---
DOZING OFF TO SLEEP. IN ROOM AND STAYS WITH PATIENT AND PARTICIPATES IN PATIENT'S CARE. DENIES DISCOMFORT. CALL LIGHT, TV CONTROL AND URINAL ALL WITHIN REACH. DENIES SHORTNESS OF BREATH. 02 SAT 92% ON [place]OMA AIR.
--- NOTE | 2018-07-10 05:29 | NUR ---
RESTED ON/OFF. PAIN MEDICATION GIVEN THIS MORNING FOR COMPLAINT OF LEFT HIP PAIN RATED "6". HOURLY ROUNDING IN PROGRESS.
[2018-07-10 07:25] VITALS: BP 131/80
[2018-07-10 15:23] LABS: ABSOLUTE BASOPHILS 0.1 thou/uL (0.0-0.2); ABSOLUTE EOSINOPHILS 0.3 thou/uL (0.0-0.7); ABSOLUTE LYMPHOCYTES 1.5 thou/uL (0.8-5.3); ABSOLUTE MONOCYTES 0.9 thou/uL (0.0-1.2); ABSOLUTE NEUTROPHILS 5.9 thou/uL (1.6-8.1); BASOPHILS 0.9 %; EOSINOPHILS 3.6 %; HEMATOCRIT 35.5 % (42.0-52.0); HEMOGLOBIN 11.3 gm/dL (14.0-18.0); LYMPHOCYTES 17.4 %; MCH 27.1 pg (26.0-34.0); MCHC 31.7 g/dL (28.0-37.0); MCV 85.4 fL (80.0-100.0); MONOCYTES 9.9 %; MPV 7.8 fl. (7.2-11.1); NUCLEATED RBCS 0 /100WBC; PLATELET COUNT* 273 thou/uL (150-400); POLYS 68.2 %; RBC 4.16 mil/uL (4.50-6.00); RDW-CV 16.4 % (10.5-14.5); WBC 8.7 thou/uL (4.0-11.0)
[2018-07-10 15:35] LABS: ALBUMIN 2.9 g/dL (3.4-5.0); CALCIUM 8.4 mg/dL (8.5-10.1); CREATININE 1.3 mg/dL (0.6-1.3); POTASSIUM 4.3 mmol/L (3.5-5.1); TOTAL BILIRUBIN 0.2 mg/dL (<0.1-1.0)
[2018-07-10 16:26] LABS: ESR (SEDRATE) 37 mm/hr (0-20)
--- NOTE | 2018-07-10 17:01 | NUR ---
ASSUMMED CARE OF PT AT 0730, PT ALERT AND ORIENTED, PT TRANSFERS VARY FORM MIN ASSIST GB WALKER CUEING TO MAX ASSIST GB WALKER CUEING, AT TIMES HE LEANS BACKWARDS AND WVEN WITH CUEING CAN NOT STRAIGNTEN HIMSELF UP OTHER TIMES STANDS AND PIVOTS WELL, TAKING FOOD AND FLUIDS WELL, COMPLAINS OF HEADACHE, IMMITREX ORDERED AND GIVEN X 1, COMPLAINS OF BACK.HIP PAIN, MEDICATED PER ORDER, PT DID GROOMING SITTING IN CHAIR, REFUSED BATH, ABLE TO DO DRESSING ON UPPER BUT NEEDS ASSIST ON LOWER DRESSING DUE TO GETTING CLOTHING OVER BRACE. VOIDS PER URINAL, PT STATES HE IS USING HIS OXYGEN NEEDED, OS SATS 92-93% THIS SHIFT AND PT HAS NOT USED O2 THIS SHIFT, PT UP IN CHAIR AT INTERVALS, TO DININGROOM FOR LUNCH, BUTTOCKS SLIGHTLY RED/DRY, FUNGAL OINMENT APPLIED, RIGHT HEEL, DRY SCALY, NO DRESSING ON HEEL, PT STATES THE DRESSING DOES NOT FIT IN HIS BRACE AND SHOE SO HAS NOT BEEN HAVING A DRESSING ON HEEL, MESSAGE LEFT FOR CARE FOR FURTHER SUGGESTIONS. HOURLY ROUNDING COMPLETED, ASSESSMENT COMPLETE, WILL CONTINUE TO MONITOR.
[2018-07-10 19:28] VITALS: BP 108/59
--- NOTE | 2018-07-10 19:45 | NUR ---
SITTING UP IN BED WATCHING TV. SITTING AT BEDSIDE. SNACK PROVIDED. DENIES DISCOMFORT. 02 SAT 91% ON ROOM AIR. DATA ENTRY ASSISTANT PLACED PT ON 02 NC AT TWO LITERS.
--- NOTE | 2018-07-11 05:05 | NUR ---
GIVEN PAIN MEDICATION AT 2108 FOR COMPLAINT OF LEFT LEG PAIN WITH RELIEF. RESTED UNTIL ABOUT 0100 THEN NOT ABLE TO GET BACK TO SLEEP. PATIENT DENIES VIVIAN KEEPING HIM AWAKE. STATES FROM BEING INSIDE TOO MUCH. HOURLY ROUNDING IN PROGRESS.
[2018-07-11 07:30] VITALS: BP 135/68
--- NOTE | 2018-07-11 14:03 | NUR ---
ASSUMED CARE AT 0730. ALERT ORIENTED PLEASANT COOPERATIVE. HX OF ENCEPHALOPATHY HX OF RT. HIP FX IN MARCH WEARS BRACE RT. HIP AND RT. AFO. TRANSFERS WITH 1 ASSIST G BELT WALKER AND CUES FOR SAFETY. PARTICIPATING IN THERAPIES THROUGHOUT THE DAY. USES CALL LIGHT APPROPRIATELY FOR ASSISTANCE. VOIDS PER URINAL EMPTIES. DENIES NEED FOR PRN PO PAIN MED. FEEDS SELF AND TAKES MEDS WITHOUT DIFFICULTY. APPETITE GOOD. SITTING IN RECLINER WITH BLES ELEVATED WHEN NOT IN THERAPIES.
[2018-07-11 20:00] VITALS: BP 102/53
--- NOTE | 2018-07-12 05:11 | NUR ---
ASSUMED CARES AT 1920. ALERT AND ORIENTED. PLEASANT. AT BEDSIDE. BRACE TO RIGHT HIP AND LEG. RIGHT FOOT AFO WHEN UP. DRESSING TO RIGHT HEEL INTACT. MIN ASSIST WITH GAIT BELT AND WALKER. PT LEANS BACK HEAVILY WHEN STANDING. NEEDED MUCH CUEING BUT STILL TRANSFERRED POORLY. PER RT, PT PUT ON O2 2L NC AT NIGHT. DILAUDID GIVEN FOR BACK/LEG PAIN. MELATONIN GIVEN FOR SLEEP BUT PT WAS UNABLE TO FALL BACK TO SLEEP AFTER 0100. USED URINAL. CALL LIGHT IN REACH AND BED ALARM ON.
[2018-07-12 08:00] VITALS: BP 97/51
--- NOTE | 2018-07-12 11:22 | NUR ---
WOUND CARE NOTE: REASSESMENT OF RIGHT HEEL AND BUTTOCK ISSUES BLANCHABLE REDNESS TO SACREAL AREA BUT NO RASH, BARRIOR OINTMENT APPLIED. WAFFLE CUSHION IN PLACE. RIGHT HEEL CONTINUES WITH DRY FLAKEY SKIN, BUT FISSURE APPEARS TO BE RESOLVED. CLEANSED WITH WOUND CLEANSER AND APPLIED LOTION. PT TOLERATED WELL. SPOKE WITH PT AND ABOUT FINDINGS. COMMUNICATED UNDERSTANDING. RECCOMEND: DC PREVIOUS WOUND CARE ORDERS LOTION TO RIGHT HEEL BARRIOR OINTMENT TO SACREAL AREA WAFFLE CUSION WHILE IN CHAIR WILL SIGN OFF AT THIS TIME. PLEASE RECONSULT IF NEEDED.
--- NOTE | 2018-07-12 15:32 | NUR ---
SW met with pt in preparation for team conference tomorrow. Pt also said she spoke with Dr Shen who expressed a possibility that pt will be able to dc prior to pain pump needing to be refilled (before 07/22). SW to continue to follow to assist with safe dc planning.
--- NOTE | 2018-07-12 16:34 | NUR ---
AM ASSESSMENT AND VITAL SIGNS COMPLETED DOCUMENTED. PT CONTINUES TO WORK WITH ALL THERAPIES AND HAS MADE GOOD PROGRESS TOWARD HIS DISCHARGE GOALS. PT's IS HERE MOST OF THE TIME AND IS VERY SUPPORTIVE WELL HELPFUL TO THE PT. PT C/O A SEVERE HEADACHE AND WAS GIVEN IMITREX WITH GOOD RELIEF. FALL PRECAUTIONS AND HOURLY ROUNDING CONTINUE.
[2018-07-12 19:44] VITALS: BP 113/53
--- NOTE | 2018-07-13 01:11 | NUR ---
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
--- NOTE | 2018-07-13 05:08 | NUR ---
SLEEPING SINCE 2200 & SLEPT GOOD ALL NIGHT.TOOK MILLICENT CRACKERS HS SNACKS W/ H20. ASSISTING W/ URINAL @ NIGHT.
[2018-07-13 08:00] VITALS: BP 152/80
--- NOTE | 2018-07-13 14:48 | NUR ---
SW met with pt and pt to review team conference summary and plan for pt to dc on Thursday 07/20. Pt and pt hopeful for a compromise of dc date to dc on Tuesday 07/18 due the pt and pt feel pt is at prior level of functioning and pt is concerned with having enough time to coordinate pain pump refill. Pt and pt also requesting to have more PT and OT to work on balance and to have less ST. SW to present to Dr Shen. SW discussed HH at dc and pt/pt preference for [facility]. SW to continue to follow to assist with safe dc planning.
[2018-07-13 19:35] VITALS: BP 108/59
--- NOTE | 2018-07-13 19:45 | NUR ---
SITTING UP IN RECLINER WATCHING TV. IN ROOM WITH PATIENT. DENIES NEED FOR PAIN MEDICATION AT THIS TIME. CALL LIGHT AND URINAL WITHIN REACH.
--- NOTE | 2018-07-14 05:22 | NUR ---
PAIN MEDICATION GIVEN AT BEDTIME FOR COMPLAINT OF BACK AND RIGHT HIP PAIN WITH RELIEF. PAIN MEDICATION GIVEN TWICE DURING THE NIGHT FOR COMPLAINT OF HEADACHE THE FIRST TIME AND COMPLAINT OF HEADACHE, BACK AND RIGHT HIP PAIN THE SECOND TIME WITH RELIEF. GIVEN MELATONIN LAST NIGHT BUT POOR RESULTS. DURING HOURLY ROUNDS NOTICE PATIENT RESTLESS. HOURLY ROUNDING IN PROGRESS.
[2018-07-14 07:24] VITALS: BP 140/80
--- NOTE | 2018-07-14 18:11 | NUR ---
PT HAS PARTICIPATED WITH THERAPIES AND CALLS FOR ASSIST NEEDS.PT IS ALERT AND ORIENTATED.PT ABLE TO AMBULATE WITH WALKER AND MIN ASSIST WITH BRACE ON.PRN FOR PAIN GIVEN THIS AM WITH GOOD EFFECT.PT EATS MEALS IN DINNINGROOM.PT LOOKING FORWARD TO GOING HOME WEDNESDAY.
--- NOTE | 2018-07-14 20:00 | NUR ---
SITTING UP IN BED DOZING ON/OFF. STATES IS TIRED. NO COMPLAINTS OF PAIN AT THIS TIME. SNACK PROVIDED. CALL LIGHT AND URINAL WITHIN REACH. IN ROOM WITH PATIENT.
[2018-07-14 20:05] VITALS: BP 126/51
--- NOTE | 2018-07-15 04:34 | NUR ---
DILAUDID GIVEN PER REQUEST AT 2104 AND 0411 FOR COMPLAINT OF BACK AND RIGHT HIP PAIN WITH RELIEF. RESTED BETTER THAN USUAL LAST NIGHT. HOURLY ROUNDING IN PROGRESS.
[2018-07-15 07:00] VITALS: BP 143/73
--- NOTE | 2018-07-15 16:43 | NUR ---
ASSUMMED CARE OF PT AT 0730, PT ALERT AND ORIENTED, TRANSFERS WITH SBA/MIN ASSIST, GB WALKER, PT COMPLAINS OF BACK PAIN AND MEDICATED PER ORDER X 2 THIS SHIFT WITH HYDROMORPHONE, ALSO COMPLAINED OF HEADACHE THIS PM AND MEDICATED WITH TYLENOL PER ORDER, TAKING FOOD AND FLUIDS WELL, PT REPOSTIONED EVERY 2 HOURS, VOIDS PER TOILET/URINAL, AMBULATED TO DININGROOM FOR LUNCH, PARTICIPATED IN ALL THERAPIES, HOURLY ROUNDING COMPLETED, ASSESSMENT COMPLETE, WILL CONTINUE TO MONITOR.
[2018-07-15 20:01] VITALS: BP 105/50
--- NOTE | 2018-07-16 06:40 | NUR ---
this nurse assumes care of pt 07/15/18 at 1930, pt drowsy, coopertive, pt complains of nausea resolved with antiemetic, up for BRP with standby assist, pts at bedside and is attentive to pts needs, no s/s acute distress noted this shift
[2018-07-16 08:04] VITALS: BP 137/70
--- NOTE | 2018-07-16 17:11 | NUR ---
ASSUMMED CARE OF PT AT 0730, PT LAERT AND ORIENTED, PT TRANSFERS WITH SBA/MIN ASSIST GB WALKER, PT COMPLAINS OF BACK PAIN AND HEADACHE, MEDICATED THRU OUT SHIFT, PT AMBULATES TO BATHROOM, LARGE BM X 1, TAKING FOOD AND FLUIDS WELL, AMBULATES TO DININGROOM, PT O2 SATS 91% THIS SHIFT, PT ENCOURAGED TO COUGH AND DEEP BREATHE, DID NOT NEED ANY 02 THIS SHIFT, PARTICIPATED IN ALL THERAPIES, HOURLY ROUNDING COMPLETED, ASSESSMENT COMPLETE, WILL CONTINUE TO MONITOR.
[2018-07-16 20:00] VITALS: BP 128/63
[2018-07-17 04:23] LABS: ABSOLUTE EOSINOPHILS 0.3 thou/uL (0.0-0.7); ABSOLUTE LYMPHOCYTES 1.6 thou/uL (0.8-5.3); ABSOLUTE MONOCYTES 0.7 thou/uL (0.0-1.2); ABSOLUTE NEUTROPHILS 3.9 thou/uL (1.6-8.1); BASOPHILS 0.5 %; EOSINOPHILS 4.7 %; HEMATOCRIT 32.4 % (42.0-52.0); HEMOGLOBIN 10.2 gm/dL (14.0-18.0); LYMPHOCYTES 24.4 %; MCH 26.6 pg (26.0-34.0); MCHC 31.4 g/dL (28.0-37.0); MCV 84.8 fL (80.0-100.0); MONOCYTES 10.1 %; MPV 8.1 fl. (7.2-11.1); NUCLEATED RBCS 0 /100WBC; PLATELET COUNT* 260 thou/uL (150-400); POLYS 60.3 %; RBC 3.82 mil/uL (4.50-6.00); RDW-CV 16.4 % (10.5-14.5); WBC 6.5 thou/uL (4.0-11.0)
[2018-07-17 04:43] LABS: CALCIUM 8.6 mg/dL (8.5-10.1); CREATININE 1.1 mg/dL (0.6-1.3); MAGNESIUM 2.3 mg/dL (1.8-2.4)
--- NOTE | 2018-07-17 05:08 | NUR ---
ASSUMED PT CARE AT 1930. PT ALERT AND ORIENTED X4, POLITE AND COOPERATIVE WITH CARES. PT AT BEDSIDE OVERNIGHT. PO DILAUDID TWICE THIS SHIFT FOR BACK PAIN. PT TOOK MELATONIN X2 FOR SLEEP. NO STOOL THIS SHIFT. USES URINAL AT NIGHT, EMPTIES. PT ANTICIPATING DISCHARGE WEDNESDAY. USES CALL LIGHT APPROPRIATELY. CALL LIGHT AND FREQUENTLY USED ITEMS WITHIN REACH. HOURLY ROUNDING IN PROGRESS, WILL CONTINUE TO MONITOR.
[2018-07-17 07:44] VITALS: BP 132/67
--- NOTE | 2018-07-17 18:26 | NUR ---
ASSUMMED CARE OF PT AT 0730, PT ALERT AND ORIENTED, TRANSFERS WITH SBA/MIN ASSIST GB WALKER, AMBULATED TO DININGROOM, DID GROOMING STANDING AT SINK WITH HOLDING GB FOR STEADYING, DID PARTIAL BATH WITH MIN ASSIST AND CHANGED CLOTHES WITH SET UP, BRACE TO RIGHT LEG, RIGHT HEEL REMAIN DRY, PLACING LOTION TO HEEL FREQUENTLY, NO REDNESS NOTED IN SACRAL/BUTTOCK AREA, STATES SHE PUTS BARRIER OINTMENT ON FREQUENTLY, PT COMPLAINS OF BACK PAIN AND MEDICATED PER ORDER, COMPLAINED OF NAUSEA AT LUNCH TIME, NO EMESIS, MEDICATED X 1 WITH GD RELIEF, HOURLY ROUNDING COMPLETED, ASSESSMENT COMPLETE, WILL CONTINUE TO MONITOR.
[2018-07-17 19:39] VITALS: BP 111/59
--- NOTE | 2018-07-18 05:33 | NUR ---
ASSUMED PT CARE AT 1930. PT ALERT AND ORIENTED X4, POLITE AND COOPERATIVE WITH CARES. PT AT BEDSIDE OVERNIGHT. PO DILAUDID ONCE THIS SHIFT FOR BACK PAIN. MELATONIN X2 FOR SLEEP. NO STOOL THIS SHIFT. USES URINAL OVERNIGHT, EMPTIES. PT ANTICIPATING DISCHARGE TODAY. WEARS BRACE TO RIGHT LEG AT ALL TIMES. USES CALL LIGHT APPROPRIATELY. HOURLY ROUNDING IN PROGRESS, WILL CONTINUE TO MONITOR.
[2018-07-18 09:49] VITALS: BP 148/77
[2018-07-18] MEDS ORDERED: MAGOX 400400 MG PO (15:36)
[2018-07-18] MEDS ORDERED: CENTRUM SILVER1 EAC2 PO (15:37)
[2018-07-18 15:38] VITALS: BP 148/77
--- NOTE | 2018-07-18 16:28 | NUR ---
AM ASSESSMENT AND VITAL SIGNS COMPLETED DOCUMENTED. PT HAS COMPLETED ALL THERAPY SESSIONS TODAY AND MET HIS DISCHARGE GOALS. PT AND HIS ARE BOTH EXCITED TO GO HOME. FALL PRECAUTIONS AND HOURLY ROUNDING CONTINUE.
--- NOTE | 2018-07-18 17:21 | NUR ---
DISCHARGE INSTRUCTIONS EXPLAINED TO PT AND HIS , PRINTED COPY PROVIDED FOR HOME. PT WILL BE FOLLOWED BY [facility]. PT AND BELONGINGS TRANSPORTED TO EXIT, ASSISTED INTO PRIVATE VEHICLE, DISCHARGED HOME IN STABLE CONDITION.
== END 2018-07-18 17:23 | disposition home health service (06) | DRG 91 ==
LOC: M.REH 16:01
PROVIDERS: Family Medicine; Internal Medicine; ADMIT Physical Medicine & Rehabilitation
DX: G92 Toxic encephalopathy (principal); J15.6 Pneumonia due to other Gram-negative bacteria; J96.11 Chronic respiratory failure with hypoxia; N39.0 Urinary tract infection, site not specified; E44.0 Moderate protein-calorie malnutrition; J44.0 Chronic obstructive pulmonary disease with (acute) lower respiratory infection; R53.81 Other malaise; N18.3 Chronic kidney disease, stage 3 (moderate); I25.10 Atherosclerotic heart disease of native coronary artery without angina pectoris; G89.29 Other chronic pain; K59.03 Drug induced constipation; T40.2X5A Adverse effect of other opioids, initial encounter; F03.90 Unspecified dementia, unspecified severity, without behavioral disturbance, psychotic disturbance, mood disturbance, and anxiety; K21.9 Gastro-esophageal reflux disease without esophagitis; R51 Headache; M54.5 Low back pain; D64.9 Anemia, unspecified; M21.371 Foot drop, right foot; G62.9 Polyneuropathy, unspecified; Z88.0 Allergy status to penicillin; Z88.7 Allergy status to serum and vaccine; Y92.89 Other specified places as the place of occurrence of the external cause; I25.2 Old myocardial infarction; Z95.5 Presence of coronary angioplasty implant and graft; Z87.891 Personal history of nicotine dependence; Z79.899 Other long term (current) drug therapy; Z79.82 Long term (current) use of aspirin; Z95.0 Presence of cardiac pacemaker; Z68.24 Body mass index [BMI] 24.0-24.9, adult

== ENCOUNTER → 2018-08-11 | Outpatient (CLI) | payer MEDICARE, OTHER ==
[~2018-08-11] MED LIST changes: +CENTRUM SILVER1 EAC2 PO; +MAGOX 400400 MG PO
== END ==
LOC: M.WC 02:31
DX: E11.622 Type 2 diabetes mellitus with other skin ulcer (principal); L89.312 Pressure ulcer of right buttock, stage 2; L89.322 Pressure ulcer of left buttock, stage 2; L98.411 Non-pressure chronic ulcer of buttock limited to breakdown of skin; E11.51 Type 2 diabetes mellitus with diabetic peripheral angiopathy without gangrene; E11.22 Type 2 diabetes mellitus with diabetic chronic kidney disease; I13.0 Hypertensive heart and chronic kidney disease with heart failure and stage 1 through stage 4 chronic kidney disease, or unspecified chronic kidney disease; N18.3 Chronic kidney disease, stage 3 (moderate); I50.9 Heart failure, unspecified; E78.5 Hyperlipidemia, unspecified; G89.4 Chronic pain syndrome; G25.81 Restless legs syndrome; I48.92 Unspecified atrial flutter; I25.5 Ischemic cardiomyopathy; I25.10 Atherosclerotic heart disease of native coronary artery without angina pectoris; J44.9 Chronic obstructive pulmonary disease, unspecified; K21.9 Gastro-esophageal reflux disease without esophagitis; F41.9 Anxiety disorder, unspecified; F17.200 Nicotine dependence, unspecified, uncomplicated; F32.9 Major depressive disorder, single episode, unspecified; F11.20 Opioid dependence, uncomplicated; Z85.028 Personal history of other malignant neoplasm of stomach

== ENCOUNTER → 2018-08-25 | Outpatient (CLI) | payer MEDICARE, OTHER | LOC: M.WC 05:20 | DX: E11.622 Type 2 diabetes mellitus with other skin ulcer (principal); L89.312 Pressure ulcer of right buttock, stage 2; L89.322 Pressure ulcer of left buttock, stage 2; L98.411 Non-pressure chronic ulcer of buttock limited to breakdown of skin; E11.22 Type 2 diabetes mellitus with diabetic chronic kidney disease; I13.0 Hypertensive heart and chronic kidney disease with heart failure and stage 1 through stage 4 chronic kidney disease, or unspecified chronic kidney disease; I50.9 Heart failure, unspecified; N18.3 Chronic kidney disease, stage 3 (moderate); E11.51 Type 2 diabetes mellitus with diabetic peripheral angiopathy without gangrene; E78.5 Hyperlipidemia, unspecified; G89.4 Chronic pain syndrome; G25.81 Restless legs syndrome; I25.5 Ischemic cardiomyopathy; I48.92 Unspecified atrial flutter; I25.10 Atherosclerotic heart disease of native coronary artery without angina pectoris; K21.9 Gastro-esophageal reflux disease without esophagitis; J44.9 Chronic obstructive pulmonary disease, unspecified; F41.9 Anxiety disorder, unspecified; F11.20 Opioid dependence, uncomplicated; F17.200 Nicotine dependence, unspecified, uncomplicated; Z85.028 Personal history of other malignant neoplasm of stomach ==

== ENCOUNTER 2018-08-27 17:33 | Inpatient (IN) | payer MEDICARE, OTHER ==
[~2018-08-27] VITALS: Ht 182.9 cm; Wt 79.4 kg
[2018-08-27 17:34] VITALS: BP 115/67
[2018-08-27 18:18] LABS: ABSOLUTE BASOPHILS 0.1 thou/uL (0.0-0.2); ABSOLUTE EOSINOPHILS 0.1 thou/uL (0.0-0.7); ABSOLUTE LYMPHOCYTES 1.5 thou/uL (0.8-5.3); ABSOLUTE MONOCYTES 1.1 thou/uL (0.0-1.2); ABSOLUTE NEUTROPHILS 14.8 thou/uL (1.6-8.1); BASOPHILS 0.6 %; EOSINOPHILS 0.4 %; HEMATOCRIT 33.8 % (42.0-52.0); HEMOGLOBIN 10.7 gm/dL (14.0-18.0); LYMPHOCYTES 8.5 %; MCH 26.6 pg (26.0-34.0); MCHC 31.8 g/dL (28.0-37.0); MCV 83.8 fL (80.0-100.0); MONOCYTES 6.1 %; MPV 7.7 fl. (7.2-11.1); NUCLEATED RBCS 0 /100WBC; PLATELET COUNT* 301 thou/uL (150-400); POLYS 84.4 %; RBC 4.03 mil/uL (4.50-6.00); RDW-CV 16.7 % (10.5-14.5); WBC 17.5 thou/uL (4.0-11.0)
[2018-08-27 18:22] LABS: ANION GAP 7 mmol/L (7-16); APTT 29.2 Seconds (25.0-31.3); BUN 20 mg/dL (7-18); CALCIUM 8.7 mg/dL (8.5-10.1); CHLORIDE 101 mmol/L (98-107); CO2 30 mmol/L (21-32); CREATININE 1.3 mg/dL (0.6-1.3); GLUCOSE 100 mg/dL (70-99); INR 1.1; POTASSIUM 4.3 mmol/L (3.5-5.1); PROTIME 10.8 Seconds (9.20-11.50); SODIUM 138 mmol/L (136-145)
[2018-08-27 18:34] LABS: ALBUMIN 3.4 g/dL (3.4-5.0); ALKALINE PHOSPHATASE 113 U/L (46-116); SGOT 25 U/L (15-37); SGPT 27 U/L (30-65); TOTAL BILIRUBIN 0.5 mg/dL (<0.1-1.0); TOTAL PROTEIN 7.3 g/dL (6.4-8.2); TROPONIN-I LEVEL <0.06 ng/mL (<0.06)
[2018-08-28 00:02] VITALS: BP 138/65
[2018-08-28 01:00] LABS: ABSOLUTE BASOPHILS 0.1 thou/uL (0.0-0.2); ABSOLUTE EOSINOPHILS 0.1 thou/uL (0.0-0.7); ABSOLUTE LYMPHOCYTES 1.4 thou/uL (0.8-5.3); ABSOLUTE MONOCYTES 0.9 thou/uL (0.0-1.2); ABSOLUTE NEUTROPHILS 12.7 thou/uL (1.6-8.1); BASOPHILS 0.9 %; EOSINOPHILS 0.4 %; HEMATOCRIT 35.7 % (42.0-52.0); HEMOGLOBIN 11.3 gm/dL (14.0-18.0); LYMPHOCYTES 8.9 %; MCH 26.4 pg (26.0-34.0); MCHC 31.6 g/dL (28.0-37.0); MCV 83.6 fL (80.0-100.0); MONOCYTES 5.9 %; MPV 7.6 fl. (7.2-11.1); NUCLEATED RBCS 0 /100WBC; PLATELET COUNT* 298 thou/uL (150-400); POLYS 83.9 %; RBC 4.27 mil/uL (4.50-6.00); RDW-CV 16.4 % (10.5-14.5); WBC 15.2 thou/uL (4.0-11.0)
[2018-08-28 01:08] LABS: CREATININE 1.3 mg/dL (0.6-1.3); MAGNESIUM 2.2 mg/dL (1.8-2.4); POTASSIUM 4.3 mmol/L (3.5-5.1)
[2018-08-28 04:00] VITALS: BP 100/48
[2018-08-28 07:30] VITALS: BP 130/71
--- NOTE | 2018-08-28 07:56 | NUR ---
REPORT RECIEVED FROM KAYLA IN ED @ 0127. PT ARRIVED TO ROOM PER CART IN ROOM 202 @ 0010. RESTARTED IV. STARTED IVF. GAVE PAIN AND NAUSEA MEDICINE. REPORTED PAIN MEDS WERENT WORKING. NOTIFIED. ADDITIONNAL PAIN MEDS GIVEN. PT 02 DESAT. INCREASED TO 10L. BP SOFT. CONTINUED TO MONITOR. DAY RN NOTIFIED.
[2018-08-28 13:38] VITALS: BP 152/75
[2018-08-28 16:30] VITALS: BP 146/76
[2018-08-28 17:10] LABS: % SATURATION 15 % (20-39); IRON 62 ug/dL (50-175)
--- NOTE | 2018-08-28 18:20 | NUR ---
PT RESTING WITH AT BEDSIDE. PT STARTED ON FENTANYL NEURODIAGNOSTIC TECHNOLOGIST PUMP THIS AFTERNOON. PT REFUSING Q2 TURNS. IV FLUIDS TKO. SURGERY SCHEDULED FOR 1400 TOMORROW. MUSCLE RELAXER STARTED PRN, GIVEN ONE TIME. PT HAS NO OTHER CONCERNS AT THIS TIME. CALL LIGHT WITHIN REACH, WILL CONTINUE PLAN OF CARE
[2018-08-28 19:45] VITALS: BP 140/70
[2018-08-29] VITALS (7 sets, daily range): BP systolic 111–151; BP diastolic 60–84
--- NOTE | 2018-08-29 05:11 | NUR ---
PATIENT PARTIALLY PROGRESSING TOWARDS GOALS: LEFT HIP PAIN PARTIALLY MANAGED WITH FENTANYL COMMUNITY RELATIONS REP PUMP, ICE APPLICATION, AND REPOSITIONING. PATIENT NPO FOR SURGERY TODAY. PATIENT'S O2 INCREASED TO 8L NC TO MAINTAIN SATURATION >90%. PATIENT REFUSING TO BE REPOSITIONED Q2H DUE TO PAIN. EDUCATION PROVIDED TO PATIENT AND ON SKIN INTEGRITY. CALL LIGHT WITHIN REACH
[2018-08-29 05:25] LABS: HEMOGLOBIN 11.5 gm/dL (14.0-18.0); MCH 26.5 pg (26.0-34.0); MCHC 31.1 g/dL (28.0-37.0); MCV 85.3 fL (80.0-100.0); NUCLEATED RBCS 0 /100WBC; PLATELET COUNT* 301 thou/uL (150-400); RBC 4.34 mil/uL (4.50-6.00); RDW-CV 16.7 % (10.5-14.5); WBC 18.7 thou/uL (4.0-11.0)
[2018-08-29 05:56] LABS: CALCIUM 9.2 mg/dL (8.5-10.1); MAGNESIUM 2.4 mg/dL (1.8-2.4); POTASSIUM 4.5 mmol/L (3.5-5.1)
[2018-08-29 06:43] LABS: ABSOLUTE LYMPHOCYTES 0.7 thou/uL (0.8-5.3); ABSOLUTE MONOCYTES 0.7 thou/uL (0.0-1.2); ABSOLUTE NEUTROPHILS 17.2 thou/uL (1.6-8.1)
[2018-08-29 06:44] LABS: MICROCYTES 2+; PLATELET ESTIMATE ADEQUATE; TOXIC GRANULATION 2+
--- NOTE | 2018-08-29 09:40 | CON ---
[address] [address] CONSULTATION Name: TONY TONEY Room: [address] IN .R.#: [id number] Admission: 08/27/18 Attend Phys: Elmo Robles MD Discharge: Date of : 45 Report #: [id number] THIS REPORT FOR: //name// CC: Neel Tariq DO Sarmad Baird DO Elmo Robles INDICATION: Syncope. HISTORY OF PRESENT ILLNESS: The patient is a very pleasant 73-year-old gentleman who was admitted to the hospital yesterday after sustaining a hip fracture in a syncopal episode. The patient has a history of ischemic cardiomyopathy. He is status post pacing ICD placement. He is not having any chest pain or shortness of breath. The patient states he got up out of his chair, put aside his O2 tubing and started to walk across the room using his walker. He felt funny and then the next thing he knew he had fallen on the floor. The patient noted hip pain at that time. In the Emergency Room, x-ray confirms a hip fracture. The patient is without cardiac complaint at this time. Interrogation of his device today shows no arrhythmic events. Thresholds, sensing and impedances are all good. Battery longevity 7.9 years. PAST MEDICAL HISTORY: 1. Remote myocardial infarction. 2. Coronary artery disease. 3. Ischemic cardiomyopathy. 4. Chronic systolic heart failure. 5. Dementia. 6. COPD. 7. Chronic back pain. 8. History of TBI. PAST SURGICAL HISTORY: Previous back surgery, previous percutaneous coronary intervention, status post ICD pacemaker placement and pain pump placement. FAMILY HISTORY: Noncontributory. SOCIAL HISTORY: He does not drink alcohol. Quit smoking greater than 1 year ago. HOME MEDICATIONS: Furosemide 40 mg p.o. b.i.d., Synthroid 50 mcg p.o. daily, Wellbutrin-SR 150 mg daily, Lipitor 40 mg daily, Singulair 10 mg at bedtime, aspirin 81 mg daily, carvedilol 12.5 mg p.o. b.i.d., potassium chloride 20 mEq p.o. b.i.d., Brovana 15 mcg inhaled b.i.d., Pulmicort 0.5 mg inhaled b.i.d., [place] [address] CONSULTATION Name: TONY TONEY Room: [address]#: [id number] Admission: 08/27/18 Attend Phys: Elmo Robles MD Discharge: Date of : 45 Report #: [id number] Dilaudid 2 mg q. 4 hours p.r.n., Plavix 75 mg daily, magnesium oxide 400 mg daily and Centrum Silver multivitamin 1 tablet daily. ALLERGIES: PENICILLIN, TETANUS AND DIPTHERIA TOXOID. PHYSICAL EXAMINATION: VITAL SIGNS: Stable. Blood pressure 130/71, pulse 78 and regular. GENERAL: This is a pleasant gentleman who is in mild distress with hip pain, but otherwise stable. HEENT: Head is normocephalic, atraumatic. Extraocular muscles intact. Mucous membranes moist. NECK: Shows no jugular venous distention. There are no carotid bruits. CHEST: Reveals diminished breath sounds throughout. I do not appreciate wheezes or rales. NECK: Reveals regular rhythm with normal S1 and S2. ABDOMEN: Reveals normal bowel sounds. The abdomen is soft, nontender. EXTREMITIES: Shows no edema. LABORATORY AND DIAGNOSTIC DATA: A 12-lead EKG shows a sinus rhythm with first-degree AV block. Inferior infarct, old. Delayed R-wave progression. No acute ST or T-wave abnormalities noted. Labs are reviewed. Troponin is less than 0.06 on 3 separate occasions. Chest x-ray shows some chronic scarring, but no acute changes. IMPRESSION AND RECOMMENDATIONS: 1. Syncope, not due to an arrhythmia. The patient's device interrogation shows no arrhythmias. I believe he likely had an episode of orthostasis. Would recommend adequate hydration and care with ambulation. No further cardiac evaluation necessary at this time. 2. Coronary artery disease, presently stable. His antiplatelet therapy is being held presently for left hip repair tomorrow. 3. Ischemic cardiomyopathy. The patient on appropriate medications as outlined above. He appears well compensated at this time. 4. Chronic obstructive pulmonary disease, presently appears stable. The patient is chronically on 4 liters of oxygen. 5. Hip fracture. The patient is not at prohibitive risk from a cardiac standpoint to undergo hip repair. <ELECTRONICALLY SIGNED> By: Dallsa Moon MD, FACC 08/29/18 0940 [id number] Moon MD, FACC /nt
--- NOTE | 2018-08-29 09:44 | NUR ---
Pt is A&O. Resides at home with his . Normally independent. Fell at home, now has a left hip fracture. Surgery today at 2pm. Pt has home o2. Hx of skilled at [facility]. Hx of acute rehab at [place] and [facility]. Hx of HH with [facility]. DPOA completed, copy on Pt's chart.
--- NOTE | 2018-08-29 13:31 | EKG ---
[place] [address] ELECTROCARDIOGRAM REPORT Name: TONY TONEY Room: [address] ADM IN M.R.#: [id number] Admission: 08/27/18 Attend Phys: Elmo Robles MD Discharge: Date of : 45 Report #: [id number] THIS REPORT FOR: //name// [facility] ED Test Date: 2018-08-27 Test Time: 17:39:41 Pat Name: TONY TONEY Department: Room: [facility] Gender: M Green Tire Inspector: Alton TORRE : 1945 Requested By: Aubrey Connors Order Number: [id number] MD: Neel Quiros Measurements Intervals [place] Rate: 71 P: PA: QRS: 18 QRSD: 144 T: -11 QT: 478 QTc: 520 Interpretive Statements sinus rhythm with first degree block Nonspecific intraventricular conduction delay Inferior infarct, age indeterminate Consider anterior infarct Compared to ECG 06/26/2018 09:49:51 Intraventricular conduction delay now present Sinus tachycardia no longer present Myocardial infarct finding still present Electronically Signed On 08-29-2018 13:31:09 CDT by Neel Quiros [email or web address] <ELECTRONICALLY SIGNED> By: Neel Quiros MD, [facility] 08/29/18 1331 [id number] 1739 Neel Quiros MD, [facility] /EPI
--- NOTE | 2018-08-29 17:57 | NUR ---
PT RETURNED TO FLOOR AT 1745, PATIENT WAS IN RESTRAINTS PER DR COOK. SINCE ADMISSION TO FLOOR RESTRAINTS TAKEN OFF, DR RUIZ NOTIFIED AND ORDERED SITTER AND MITTS IN PLACE. PT CONFUSED AND AGITATED. SPOUSE AT BEDSIDE, EXPLAINED TO PATIENT SITUATION. PT HAS HIP PRECAUTION IN PLACE. ICE PACK TO LEFT HIP. DRESSING C/D/I. IV FLUIDS INFUSING PER ORDERS. PT HAS CO2 MONITOR IN PLACE, WITH 5L PER NC. MONITOR SHOWS A PACED IN 60-70'S. VSS. CALL LIGHT WITHIN REACH, WILL CONTINUE PLAN OF CARE
[2018-08-30 04:00] VITALS: BP 142/70
--- NOTE | 2018-08-30 04:45 | NUR ---
PATIENT NOT PROGRESSING TOWARDS GOALS: PATIENT REMAINS CONFUSED AND COMBATIVE THROUGHOUT SHIFT. MITTENS IN PLACE AND 1:1 SITTER MAINTAINED. PATIENT PATIENT C/O LEFT HIP PAIN DESPITE USE OF ELECTRICAL TRANSMISSION ENGINEER PUMP. OFFERED MUSCLE RELAXER, PATIENT DECLINED. ICE PACK PLACED TO LEFT HIP BUT PATIENT REMOVED. HIP ABDUCTION PILLOW IN PLACE. LEFT HIP DRESSING C/D/I. CALL LIGHT WITHIN REACH.
[2018-08-30 04:54] LABS: URINE BILIRUBIN NEGATIVE (Negative); URINE BLOOD NEGATIVE (Negative); URINE CLARITY CLEAR; URINE COLOR YELLOW; URINE GLUCOSE-RANDOM NEGATIVE (Negative); URINE KETONES 1+ (Negative); URINE LEUKOCYTES-REFLEX NEGATIVE (Negative); URINE NITRITE-REFLEX NEGATIVE (Negative); URINE PROTEIN TRACE (Negative); URINE UROBILINOGEN 0.2 E.U./dl (0.2-1.0)
[2018-08-30 08:00] VITALS: BP 144/56
[2018-08-30 08:14] LABS: ABSOLUTE LYMPHOCYTES 0.8 thou/uL (0.8-5.3); ABSOLUTE MONOCYTES 1.3 thou/uL (0.0-1.2); ABSOLUTE NEUTROPHILS 12.4 thou/uL (1.6-8.1); BASOPHILS 0.3 %; EOSINOPHILS 0.1 %; HEMATOCRIT 30.9 % (42.0-52.0); HEMOGLOBIN 10.1 gm/dL (14.0-18.0); LYMPHOCYTES 5.2 %; MCH 27.1 pg (26.0-34.0); MCHC 32.6 g/dL (28.0-37.0); MCV 83.2 fL (80.0-100.0); MONOCYTES 8.7 %; MPV 7.9 fl. (7.2-11.1); NUCLEATED RBCS 0 /100WBC; PLATELET COUNT* 277 thou/uL (150-400); POLYS 85.7 %; RBC 3.72 mil/uL (4.50-6.00); RDW-CV 16.6 % (10.5-14.5); WBC 14.4 thou/uL (4.0-11.0)
[2018-08-30 08:29] LABS: CALCIUM 8.5 mg/dL (8.5-10.1); CREATININE 0.9 mg/dL (0.6-1.3); MAGNESIUM 2.3 mg/dL (1.8-2.4); POTASSIUM 4.3 mmol/L (3.5-5.1)
[2018-08-30 11:35] VITALS: BP 122/62
--- NOTE | 2018-08-30 15:08 | NUR ---
ASSUMED CARE OF PATIENT THIS AM AT 0730. PATIENT IS ALERT ANXIOUS AND AGITATED OFF AND ON THROUGHOUT THE DAY. TELE SHOWS SR WITH 1ST DEGREE AVB. PATIENT HAS A SITTER AT THE BEDSIDE FOR PATIENT SAFETY. HE HAS A ONGOING FENTANYL LASER BEAM CUTTER FOR PAIN CONTROL. O2 SATS ARE 89 TO 92% ON 6 LITERS. PATIENT REFUSES TO TURN. DRESSING APPEARS INTACT TO HIS LEFT HIP. IS IN AT THE BEDSIDE. RIGHT ARM IV INFILTRATED AND DISCONTINUED. INFUSION NURSE CONTACTED TO ESTABLISH A NEW IV ACCESS. HIS APPETITE IS POOR TODAY. PATIENT DID TAKE HIS PO MEDICATIONS THIS AM. PATIENT WORKED MINIMALLY WITH PT AND OT. HE IS SLOWLY PROGRESSING TOWARDS GOALS. WILL CONTINUE TO MONITOR.
[2018-08-30 15:58] VITALS: BP 125/64
[2018-08-30 19:55] VITALS: BP 118/59
[2018-08-31] VITALS: BP 123/60
[2018-08-31 04:00] VITALS: BP 109/57
--- NOTE | 2018-08-31 05:37 | NUR ---
PATIENT PROGRESSING TOWARDS GOALS: PATIENT LESS AGITATED AND IMPULSIVE THIS SHIFT. OBSERVED SLEEPING FOR A FEW HOURS. 1:1 SITTER AT BEDSIDE TO ENSURE SAFETY. PATIENT'S PAIN MANAGED WITH LAND SURVEYOR ASSISTANT PUMP AND MEDS PER MAR. PATIENT REFUSING TO PUT ICE ON HIP DESPITE ENCOURAGEMENT AND EDUCATION. PATIENT AND ALSO REFUSING PATIENT TO BE PROPERLY REPOSITIONED WITH WEDGES Q2H. EDUCATED ON SKIN INTEGRITY AND WOUNDS. PATIENT'S STATES HE HAS WOUNDS BUT GOES TO WOUND CLINIC. REFUSING TO ALLOW STAFF TO TAKE PICTURES. EDUCATED THAT HE NEEDS A WOUND CONSULT WHILE HE IS IN THE HOSPITAL. STILL REFUSING. CALL LIGHT WITHIN REACH.
[2018-08-31 05:43] LABS: ABSOLUTE LYMPHOCYTES 0.7 thou/uL (0.8-5.3); ABSOLUTE MONOCYTES 1.1 thou/uL (0.0-1.2); BASOPHILS 0.2 %; EOSINOPHILS 0.2 %; HEMATOCRIT 26.6 % (42.0-52.0); HEMOGLOBIN 8.7 gm/dL (14.0-18.0); LYMPHOCYTES 8.1 %; MCH 27.3 pg (26.0-34.0); MCHC 32.9 g/dL (28.0-37.0); MCV 83.2 fL (80.0-100.0); MONOCYTES 12.8 %; NUCLEATED RBCS 0 /100WBC; PLATELET COUNT* 220 thou/uL (150-400); POLYS 78.7 %; RBC 3.19 mil/uL (4.50-6.00); RDW-CV 16.1 % (10.5-14.5); WBC 8.8 thou/uL (4.0-11.0)
[2018-08-31 06:09] LABS: ALBUMIN 2.3 g/dL (3.4-5.0); CALCIUM 8.1 mg/dL (8.5-10.1); CREATININE 0.8 mg/dL (0.6-1.3); TOTAL BILIRUBIN 0.7 mg/dL (<0.1-1.0); TOTAL PROTEIN 5.8 g/dL (6.4-8.2)
[2018-08-31 06:11] LABS: POTASSIUM 3.3 mmol/L (3.5-5.1)
[2018-08-31 08:00] VITALS: BP 101/45
[2018-08-31 12:00] VITALS: BP 119/55
--- NOTE | 2018-08-31 15:43 | NUR ---
ASSUMED PT CARE AT 0730, FULL ASSESMENT DONE CHARTED. PT A/O X2-3, PT FORGETFUL AND AGITATED AT TIMES. PT REFUSED TURNING THIS AM AND IS RELUCTANT TO WORK WITH PT/OT. PT DOES HAVE SOME SKIN TEARS TO BILAT WRISTS, PICTURES TAKEN AND THEY WERE REDRESSED. PT ALSO HAS SOME SORES ON THE BUTTOCK. PT WOULD NOT LET THIS RN LOOK AT THEM CLOSLY EARLIER. WILL ATTEMPT AGAIN THIS AFTERNOON. PTS STATES HE HAS BEEN GOING TO THE WOUND CLINIC AND WAS USING A PERSCRIPTION CREAM ON IT. SHE IS TO BRING THE CREAM UP TO HAVE US LOOK AT. PTS BP SOFT, ASYMPTOMATIC. PAIN IN LEFT HIP PRESENT, FRONT END SOFTWARE ENGINEER PUMP DC'D TODAY. FALL PRECAUTIONS IN PLACE. SPOKE TO ABOUT THE POC. WILL CONTINUE TO MONITOR.
[2018-08-31 16:18] VITALS: BP 101/48
--- NOTE | 2018-08-31 16:56 | NUR ---
WOUND CARE NOTE: CONSULT FOR BUTTOCK WOUNDS/SKIN TEARS PT HERE FOR LEFT HIP FX. HAS NOT BEEN GETTING OUT OF BED AND REFUSING THERAPIES. PTS STATES PT HAS BEEN GOING TO THE [facility] FOR WOUNDS TO HIS BUTTOCK. SHE STATES HE HAS BEEN USING A RX CREAM AT HOME BUT CANNOT REMEMBER THE NAME. PT WOULD NOT LET NURSE SEE HIS BOTTOM THIS AM FOR VERY LONG, PT CANNOT TOLERATE TURNING. PT FOUND TO HAVE STAGE 1 PU TO RIGHT BUTTOCK MEASURING 1.2X0.7X0.0. COLOR IS PURPLE, BLANCHES, APPROXIMATED WELL, NO DRAINAGE. THE LEFT BUTTOCK HAS STAGE 1 PU MEASURING 1.0X0.8X0.0, COLOR IS PURPLE, BLANCES, APPROXIMATED WELL, NO DRAINAGE. THERE IS A SMALL ABRASION ON THE COCCYX POSSIBLE MOISTURE ASSOCIATED. PT HAS MULTIPLE SKIN TEARS TO HIS BILAT WRISTS, ONE TO THE RIGHT UPPER ARM, ONE TO THE LEFT RIVERS. BUTTOCK WASHED WITH WOUND CLEANSER, PATTED DRY, COVERED BOTH PU'S WITH 3X3 BOARDERED FOAM DRESSINGS. ALL SKIN TEARS WASHED WITH WOUND CLEANSER, PATTED DRY. LEFT RIVERS SKIN TEAR COVERED WITH AQUACEL AG. ALL OTHER UPPER EXTREMITY SKIN TEARS COVERED WITH XEROFORM AND ROLLED GAUZE SECURED WITH TAPE. PT TOLERATED THIS WELL BUT RELUCTANT TO TURN TO HAVE HIS BOTTOM LOOKED AT. PT AND EDUCATED ON STAYING OFF HIS BOTTOM AND TURNING SIDE TO SIDE WHILE IN BED. VERBALIZED UNDERSTANDING AND VERY SUPPORTIVE OF HELPING PT GET BETTER. PT RELUCTANT TO EDUCATION. RECOMEND: WOUND CARE ORDERED. TURN Q2 HR GOOD NUTRITION TO PROMOTE HEALING
[2018-08-31 20:00] VITALS: BP 94/48
[2018-09-01] VITALS: BP 97/40
--- NOTE | 2018-09-01 02:40 | NUR ---
ASSUMED PT CARE AT 1930. ASSESSMENT COMPLETED CHARTED. PT AT BEDSIDE, NOTIFIES STAFF OF PT NEEDS. [id number] COMPLETED CHARTED, REFUSES AT TIMES. PT IS SLEEPY BUT ANSWERS QUESTIONS APPROPRIATELY. PT RESTING IN BED AT THIS TIME. C/O HIP PAIN THAT IS CONTROLLED WITH PAIN MEDICATIONS. WILL CONITNUE TO MONITOR.
[2018-09-01 04:00] VITALS: BP 98/44
[2018-09-01 08:00] VITALS: BP 91/44
[2018-09-01 12:28] VITALS: BP 93/61
[2018-09-01 14:06] LABS: ABSOLUTE EOSINOPHILS 0.2 thou/uL (0.0-0.7); ABSOLUTE LYMPHOCYTES 0.9 thou/uL (0.8-5.3); ABSOLUTE MONOCYTES 1.1 thou/uL (0.0-1.2); ABSOLUTE NEUTROPHILS 8.5 thou/uL (1.6-8.1); BASOPHILS 0.3 %; EOSINOPHILS 2.2 %; HEMATOCRIT 29.7 % (42.0-52.0); HEMOGLOBIN 9.5 gm/dL (14.0-18.0); MCH 26.7 pg (26.0-34.0); MCHC 31.8 g/dL (28.0-37.0); MCV 83.7 fL (80.0-100.0); MONOCYTES 10.1 %; MPV 7.7 fl. (7.2-11.1); NUCLEATED RBCS 0 /100WBC; POLYS 79.4 %; RBC 3.55 mil/uL (4.50-6.00); WBC 10.7 thou/uL (4.0-11.0)
[2018-09-01 14:10] LABS: PLATELET COUNT* 308 thou/uL (150-400)
[2018-09-01 14:18] LABS: CALCIUM 8.4 mg/dL (8.5-10.1); POTASSIUM 3.9 mmol/L (3.5-5.1)
[2018-09-01 16:33] VITALS: BP 141/50
--- NOTE | 2018-09-01 19:54 | NUR ---
ASSUMED PT CARE AT 0730, FULL ASSESMENT DONE CHARTED. PT A/O X3, REPORTS PAIN IN LEFT HIP, PT ABLE TO GET UP TO CHIAR WITH PT TODAY. TOLERATED SITTING IN CHAIR FOR APPROX 2 HOURS. DID TAKE MAX ASSIST TO GET BACK TO BED. PT GIVEN PAIN MEDS PER MAY. VSS, APCED ON THE MONITOR. TURNED Q2 HRS. DRESSING TO BUTTOCK IN PLACE, C/D/I. PT USING URINAL. ATTEMPTED TO SIT ON BEDPAN TODAY, PASSING GAS, NO BM. FALL PRECAUTIOINS IN PLACE. AT BEDSIDE.
[2018-09-01 20:00] VITALS: BP 95/46
[2018-09-02] VITALS: BP 92/41
[2018-09-02 04:28] VITALS: BP 91/47
[2018-09-02 04:29] LABS: HEMATOCRIT 27.7 % (42.0-52.0); HEMOGLOBIN 8.9 gm/dL (14.0-18.0); MCH 26.8 pg (26.0-34.0); MCHC 32.2 g/dL (28.0-37.0); MCV 83.3 fL (80.0-100.0); MPV 7.6 fl. (7.2-11.1); RBC 3.32 mil/uL (4.50-6.00); RDW-CV 16.4 % (10.5-14.5); WBC 8.4 thou/uL (4.0-11.0)
[2018-09-02 04:35] LABS: CALCIUM 8.2 mg/dL (8.5-10.1); POTASSIUM 3.7 mmol/L (3.5-5.1)
--- NOTE | 2018-09-02 05:48 | NUR ---
ASSUMED PT CARE AT 1930. ASSESSMENT COMPLETED CHARTED. ABLE TO MAKE NEEDS KNOWN. PT RESTING IN BED ALL NIGHT. AT BEDSIDE. [id number] COMPLETED CHARTED. HIP ABDUCTOR PILLOW IN PLACE. DRESSING C/D/I. C/O PAIN IN LEFT HIP AND GAVE PRN AND SCHEDULED PAIN MEDICATIONS SHOWN IN EMAR. WILL CONTINUE TO MONITOR.
[2018-09-02 08:15] VITALS: BP 131/58
--- NOTE | 2018-09-02 10:28 | NUR ---
Nutrition: Pt admitted s/p hip arthroplasty. Seen for pressure ulcer on Rt buttock, stage I. Albumin 2.3, prealb 11.4. Unsure of pt's po intake today. Ensure is ordered as supplement. RX: vit C, folic acid, MVI, lasix. Wt is ok, 175#. Heart Healthy diet. RD will order Edson to aid in wound in healing. Encourage good po intake at meal times. Mild risk.
--- NOTE | 2018-09-02 11:45 | NUR ---
Per , Pt ready to dc to acute rehab today, CM messaged rehabilitation specialist, waiting call back.
[2018-09-02 12:11] VITALS: BP 115/53
--- NOTE | 2018-09-02 12:16 | NUR ---
ASSUMED CARE OF PATIENT AT 0700. HEAD TO TOE ASSESSMENT COMPLETED THIS AM WITH MED PASS. PATIENT COMPLAINING OF PAIN. REPOSITIONED WEDGE AND STRAIGENTED OUT LEFT LEG. O2 SAT AT 95% ON 5L. O2 TITRATED DOWN TO 4L AT 0920. REASSESSED AT 1010 O2 SAT AT 97%. PATIENT TOLERATING O2 TITRATION WELL. WILL CONTINUE TO MONITOR.
[2018-09-02 12:32] LABS: URINE BILIRUBIN NEGATIVE (Negative); URINE BLOOD NEGATIVE (Negative); URINE CLARITY CLEAR; URINE COLOR YELLOW; URINE GLUCOSE-RANDOM NEGATIVE (Negative); URINE KETONES NEGATIVE (Negative); URINE LEUKOCYTES NEGATIVE (Negative); URINE NITRITE NEGATIVE (Negative); URINE PROTEIN NEGATIVE (Negative); URINE SPECIFIC GRAVITY 1.015 (1.005-1.030); URINE UROBILINOGEN 0.2 E.U./dl (0.2-1.0)
[2018-09-02 16:00] VITALS: BP 97/50
[2018-09-02] MEDS ORDERED: CEFDINIR300 MG PO (16:04)
[2018-09-02] MEDS ORDERED: ELIQUIS2.5 MG PO (16:13)
[2018-09-02 16:38] VITALS: BP 97/50
== END 2018-09-02 18:27 | DRG 853 ==
LOC: M.ERS 17:33 → M.TBA-ER 19:28 → M.2W 19:28 → M.TBA-ER 21:09 → M.2W 08-28 00:02
PROVIDERS: Emergency Medicine Emergency Medical Services; Internal Medicine; ADMIT Family Medicine
PROC: 0SRS0JZ Replacement of Left Hip Joint, Femoral Surface with Synthetic Substitute, Open Approach (ICD-10-PCS; principal; 2018-08-29)
PROC: 4B02XSZ Measurement of Cardiac Pacemaker, External Approach (ICD-10-PCS; 2018-08-30)
DX: A41.9 Sepsis, unspecified organism (principal); S72.012A Unspecified intracapsular fracture of left femur, initial encounter for closed fracture; J15.6 Pneumonia due to other Gram-negative bacteria; J96.11 Chronic respiratory failure with hypoxia; I50.22 Chronic systolic (congestive) heart failure; F11.20 Opioid dependence, uncomplicated; D62 Acute posthemorrhagic anemia; J44.0 Chronic obstructive pulmonary disease with (acute) lower respiratory infection; I13.0 Hypertensive heart and chronic kidney disease with heart failure and stage 1 through stage 4 chronic kidney disease, or unspecified chronic kidney disease; I25.10 Atherosclerotic heart disease of native coronary artery without angina pectoris; F03.90 Unspecified dementia, unspecified severity, without behavioral disturbance, psychotic disturbance, mood disturbance, and anxiety; G89.29 Other chronic pain; M54.9 Dorsalgia, unspecified; I25.5 Ischemic cardiomyopathy; N18.3 Chronic kidney disease, stage 3 (moderate); G62.9 Polyneuropathy, unspecified; E53.8 Deficiency of other specified B group vitamins; R41.0 Disorientation, unspecified; K59.00 Constipation, unspecified; Z95.0 Presence of cardiac pacemaker; Z95.5 Presence of coronary angioplasty implant and graft; Z88.0 Allergy status to penicillin; Z88.7 Allergy status to serum and vaccine; W18.39XA Other fall on same level, initial encounter; Y93.89 Activity, other specified; Y92.89 Other specified places as the place of occurrence of the external cause; Y99.8 Other external cause status; Z87.820 Personal history of traumatic brain injury; I25.2 Old myocardial infarction

== ENCOUNTER 2018-09-02 16:02 | Inpatient (IN) | payer MEDICARE, OTHER ==
[~2018-09-02] VITALS: Ht 180.3 cm; Wt 73.3 kg
[2018-09-02] MEDS ORDERED: CEFDINIR300 MG PO (16:04)
[2018-09-02] MEDS ORDERED: ELIQUIS2.5 MG PO (16:13)
[2018-09-02 18:40] VITALS: BP 107/59
[2018-09-03 07:30] VITALS: BP 122/64
[2018-09-03 13:27] LABS: HEMATOCRIT 32.2 % (42.0-52.0); HEMOGLOBIN 10.2 gm/dL (14.0-18.0); MCH 26.6 pg (26.0-34.0); MCHC 31.8 g/dL (28.0-37.0); MCV 83.7 fL (80.0-100.0); MPV 7.4 fl. (7.2-11.1); RBC 3.85 mil/uL (4.50-6.00); RDW-CV 16.7 % (10.5-14.5); WBC 9.4 thou/uL (4.0-11.0)
[2018-09-03 13:36] LABS: CALCIUM 8.6 mg/dL (8.5-10.1); CREATININE 0.9 mg/dL (0.6-1.3); POTASSIUM 4.6 mmol/L (3.5-5.1)
[2018-09-03 20:56] VITALS: BP 124/74
[2018-09-04 10:11] VITALS: BP 135/69
[2018-09-04 20:50] VITALS: BP 111/39
[2018-09-05 00:40] VITALS: BP 116/61
[2018-09-05 08:29] VITALS: BP 127/65
[2018-09-05 20:12] VITALS: BP 86/41
[2018-09-05 21:06] VITALS: BP 111/51
[2018-09-06 04:39] LABS: CALCIUM 8.4 mg/dL (8.5-10.1); MAGNESIUM 2.1 mg/dL (1.8-2.4)
[2018-09-06 08:15] VITALS: BP 105/53; BP 142/48
[2018-09-06 20:00] VITALS: BP 92/59
[2018-09-07 08:59] VITALS: BP 140/66
[2018-09-07 20:30] VITALS: BP 106/53
[2018-09-08 07:30] VITALS: BP 112/49
[2018-09-08 17:22] VITALS: BP 112/50
[2018-09-08 20:13] VITALS: BP 121/59; BP 82/41
[2018-09-09] VITALS: BP 111/53
[2018-09-09 08:02] VITALS: BP 119/55
[2018-09-09 19:56] VITALS: BP 104/52
[2018-09-10 05:11] LABS: ABSOLUTE BASOPHILS 0.1 thou/uL (0.0-0.2); ABSOLUTE EOSINOPHILS 0.5 thou/uL (0.0-0.7); ABSOLUTE LYMPHOCYTES 1.5 thou/uL (0.8-5.3); ABSOLUTE MONOCYTES 0.8 thou/uL (0.0-1.2); ABSOLUTE NEUTROPHILS 5.1 thou/uL (1.6-8.1); BASOPHILS 0.8 %; EOSINOPHILS 6.7 %; HEMATOCRIT 30.4 % (42.0-52.0); HEMOGLOBIN 9.9 gm/dL (14.0-18.0); LYMPHOCYTES 18.8 %; MCH 27.8 pg (26.0-34.0); MCHC 32.6 g/dL (28.0-37.0); MCV 85.1 fL (80.0-100.0); MONOCYTES 10.5 %; MPV 7.7 fl. (7.2-11.1); NUCLEATED RBCS 0 /100WBC; PLATELET COUNT* 343 thou/uL (150-400); POLYS 63.2 %; RBC 3.57 mil/uL (4.50-6.00); RDW-CV 17.7 % (10.5-14.5); WBC 8.1 thou/uL (4.0-11.0)
[2018-09-10 05:40] LABS: CALCIUM 8.7 mg/dL (8.5-10.1); CREATININE 1.1 mg/dL (0.6-1.3); POTASSIUM 3.7 mmol/L (3.5-5.1)
[2018-09-10 08:09] VITALS: BP 109/60
[2018-09-10 20:23] VITALS: BP 129/54
[2018-09-11 08:24] VITALS: BP 109/54
[2018-09-11 19:35] VITALS: BP 96/49
[2018-09-12 09:11] VITALS: BP 146/67
[2018-09-12 09:15] VITALS: BP 123/48
[2018-09-12 09:30] VITALS: BP 123/48
[2018-09-12 20:00] VITALS: BP 94/42
[2018-09-13 08:00] VITALS: BP 138/63
[2018-09-13 19:47] VITALS: BP 112/49
[2018-09-14 08:18] VITALS: BP 97/46
[2018-09-14 15:39] VITALS: BP 97/46
[2018-09-14 20:00] VITALS: BP 110/48
[2018-09-15 08:00] VITALS: BP 95/52
[2018-09-15 20:28] VITALS: BP 90/46
[2018-09-16 08:00] VITALS: BP 135/57
[2018-09-16 15:33] LABS: ABSOLUTE BASOPHILS 0.1 thou/uL (0.0-0.2); ABSOLUTE EOSINOPHILS 0.4 thou/uL (0.0-0.7); ABSOLUTE LYMPHOCYTES 1.8 thou/uL (0.8-5.3); ABSOLUTE MONOCYTES 0.7 thou/uL (0.0-1.2); ABSOLUTE NEUTROPHILS 6.8 thou/uL (1.6-8.1); BASOPHILS 1.1 %; EOSINOPHILS 3.7 %; HEMATOCRIT 34.6 % (42.0-52.0); HEMOGLOBIN 10.9 gm/dL (14.0-18.0); LYMPHOCYTES 18.3 %; MCH 27.3 pg (26.0-34.0); MCHC 31.4 g/dL (28.0-37.0); MCV 86.9 fL (80.0-100.0); MONOCYTES 7.2 %; MPV 7.4 fl. (7.2-11.1); NUCLEATED RBCS 0 /100WBC; PLATELET COUNT* 362 thou/uL (150-400); POLYS 69.7 %; RBC 3.98 mil/uL (4.50-6.00); RDW-CV 19.5 % (10.5-14.5); WBC 9.8 thou/uL (4.0-11.0)
[2018-09-16 15:58] LABS: ALBUMIN 3.1 g/dL (3.4-5.0); CALCIUM 8.9 mg/dL (8.5-10.1); MAGNESIUM 2.1 mg/dL (1.8-2.4); POTASSIUM 3.9 mmol/L (3.5-5.1); TOTAL BILIRUBIN 0.5 mg/dL (<0.1-1.0); TOTAL PROTEIN 7.2 g/dL (6.4-8.2)
[2018-09-16 20:26] VITALS: BP 138/61
[2018-09-17 08:24] VITALS: BP 126/61
[2018-09-17 19:30] VITALS: BP 113/52
[2018-09-18 08:00] VITALS: BP 141/60
[2018-09-18 20:02] VITALS: BP 104/49
[2018-09-19 08:00] VITALS: BP 131/60
[2018-09-19 08:29] VITALS: BP 131/60
[2018-09-19 09:12] VITALS: BP 131/60
[2018-09-19] MEDS ORDERED: VITAMIN D1000 UNI1 PO (12:31)
[2018-09-19] MEDS ORDERED: IRON325 PO (12:32)
== END 2018-09-19 13:31 | disposition home or self-care (01) | DRG 535 ==
LOC: M.REH 16:02
PROVIDERS: Family Medicine; Internal Medicine; ADMIT Physical Medicine & Rehabilitation
DX: S72.002A Fracture of unspecified part of neck of left femur, initial encounter for closed fracture (principal); J18.9 Pneumonia, unspecified organism; I50.23 Acute on chronic systolic (congestive) heart failure; I13.2 Hypertensive heart and chronic kidney disease with heart failure and with stage 5 chronic kidney disease, or end stage renal disease; D62 Acute posthemorrhagic anemia; J96.11 Chronic respiratory failure with hypoxia; J44.9 Chronic obstructive pulmonary disease, unspecified; I25.10 Atherosclerotic heart disease of native coronary artery without angina pectoris; X58.XXXA Exposure to other specified factors, initial encounter; G89.29 Other chronic pain; M54.9 Dorsalgia, unspecified; K21.9 Gastro-esophageal reflux disease without esophagitis; N18.3 Chronic kidney disease, stage 3 (moderate); D50.9 Iron deficiency anemia, unspecified; G62.9 Polyneuropathy, unspecified; Y93.89 Activity, other specified; Z79.899 Other long term (current) drug therapy; Y92.89 Other specified places as the place of occurrence of the external cause; Y99.8 Other external cause status; Z95.5 Presence of coronary angioplasty implant and graft; I25.2 Old myocardial infarction; Z88.0 Allergy status to penicillin; Z88.7 Allergy status to serum and vaccine; Z87.01 Personal history of pneumonia (recurrent); Z95.0 Presence of cardiac pacemaker; Z79.1 Long term (current) use of non-steroidal anti-inflammatories (NSAID); Z79.82 Long term (current) use of aspirin; Z86.73 Personal history of transient ischemic attack (TIA), and cerebral infarction without residual deficits; Z79.891 Long term (current) use of opiate analgesic

== ENCOUNTER → 2018-10-12 | Outpatient (CLI) | payer MEDICARE, OTHER ==
[~2018-10-12] MED LIST changes: +CEFDINIR300 MG PO; +ELIQUIS2.5 MG PO; +IRON325 PO; +VITAMIN D1000 UNI1 PO
== END ==
LOC: M.PC 10-05 14:30
DX: S72.002D Fracture of unspecified part of neck of left femur, subsequent encounter for closed fracture with routine healing (principal); R26.9 Unspecified abnormalities of gait and mobility; G89.29 Other chronic pain; J44.9 Chronic obstructive pulmonary disease, unspecified; I25.10 Atherosclerotic heart disease of native coronary artery without angina pectoris; I50.9 Heart failure, unspecified; N18.3 Chronic kidney disease, stage 3 (moderate); K21.9 Gastro-esophageal reflux disease without esophagitis; F13.90 Sedative, hypnotic, or anxiolytic use, unspecified, uncomplicated; Z86.73 Personal history of transient ischemic attack (TIA), and cerebral infarction without residual deficits; Z79.891 Long term (current) use of opiate analgesic; X58.XXXD Exposure to other specified factors, subsequent encounter

== ENCOUNTER → 2019-01-12 | Outpatient (CLI) | payer MEDICARE, OTHER | LOC: M.WC 00:37 | DX: E11.622 Type 2 diabetes mellitus with other skin ulcer (principal); L89.313 Pressure ulcer of right buttock, stage 3; L89.323 Pressure ulcer of left buttock, stage 3; L98.411 Non-pressure chronic ulcer of buttock limited to breakdown of skin; E11.51 Type 2 diabetes mellitus with diabetic peripheral angiopathy without gangrene; E11.22 Type 2 diabetes mellitus with diabetic chronic kidney disease; I13.0 Hypertensive heart and chronic kidney disease with heart failure and stage 1 through stage 4 chronic kidney disease, or unspecified chronic kidney disease; I50.9 Heart failure, unspecified; N18.3 Chronic kidney disease, stage 3 (moderate); E78.5 Hyperlipidemia, unspecified; G25.81 Restless legs syndrome; G89.4 Chronic pain syndrome; I48.92 Unspecified atrial flutter; I25.10 Atherosclerotic heart disease of native coronary artery without angina pectoris; I25.5 Ischemic cardiomyopathy; J44.9 Chronic obstructive pulmonary disease, unspecified; K21.9 Gastro-esophageal reflux disease without esophagitis; F41.9 Anxiety disorder, unspecified; F11.20 Opioid dependence, uncomplicated; Z95.0 Presence of cardiac pacemaker; Z85.028 Personal history of other malignant neoplasm of stomach; Z87.891 Personal history of nicotine dependence ==

== ENCOUNTER → 2019-02-02 | Outpatient (CLI) | payer MEDICARE, OTHER | LOC: M.WC 01-26 09:00 | DX: E11.622 Type 2 diabetes mellitus with other skin ulcer (principal); L89.313 Pressure ulcer of right buttock, stage 3; L98.418 Non-pressure chronic ulcer of buttock with other specified severity; E11.51 Type 2 diabetes mellitus with diabetic peripheral angiopathy without gangrene; E11.22 Type 2 diabetes mellitus with diabetic chronic kidney disease; I13.0 Hypertensive heart and chronic kidney disease with heart failure and stage 1 through stage 4 chronic kidney disease, or unspecified chronic kidney disease; I50.9 Heart failure, unspecified; N18.3 Chronic kidney disease, stage 3 (moderate); E78.5 Hyperlipidemia, unspecified; G89.4 Chronic pain syndrome; G25.81 Restless legs syndrome; I25.5 Ischemic cardiomyopathy; I48.92 Unspecified atrial flutter; I25.10 Atherosclerotic heart disease of native coronary artery without angina pectoris; K21.9 Gastro-esophageal reflux disease without esophagitis; J44.9 Chronic obstructive pulmonary disease, unspecified; F11.20 Opioid dependence, uncomplicated; F41.9 Anxiety disorder, unspecified; F32.9 Major depressive disorder, single episode, unspecified; Z85.028 Personal history of other malignant neoplasm of stomach; Z87.891 Personal history of nicotine dependence ==

== ENCOUNTER 2019-03-23 15:52 | Inpatient (IN) | payer MEDICARE, OTHER ==
[~2019-03-23] VITALS: Ht 182.9 cm; Wt 84.1 kg
[2019-03-23 15:58] VITALS: BP 130/72
[2019-03-23] MEDS ORDERED: PULMICORT0.5 MG/2 M INH (16:05)
[2019-03-23] MEDS ORDERED: AMIODARONE HCL400 MG PO (16:05)
[2019-03-23 16:27] LABS: URINE BILIRUBIN NEGATIVE (Negative); URINE BLOOD NEGATIVE (Negative); URINE CLARITY CLEAR; URINE COLOR YELLOW; URINE GLUCOSE-RANDOM NEGATIVE (Negative); URINE KETONES NEGATIVE (Negative); URINE LEUKOCYTES-REFLEX NEGATIVE (Negative); URINE NITRITE-REFLEX NEGATIVE (Negative); URINE PROTEIN NEGATIVE (Negative); URINE UROBILINOGEN 0.2 E.U./dl (0.2-1.0)
[2019-03-23 16:35] LABS: ABSOLUTE BASOPHILS 0.1 thou/uL (0.0-0.2); ABSOLUTE EOSINOPHILS 0.1 thou/uL (0.0-0.7); ABSOLUTE LYMPHOCYTES 1.2 thou/uL (0.8-5.3); ABSOLUTE MONOCYTES 1.6 thou/uL (0.0-1.2); ABSOLUTE NEUTROPHILS 9.4 thou/uL (1.6-8.1); BASOPHILS 0.5 %; EOSINOPHILS 1.1 %; HEMATOCRIT 41.4 % (42.0-52.0); HEMOGLOBIN 13.9 gm/dL (14.0-18.0); MCH 28.8 pg (26.0-34.0); MCHC 33.5 g/dL (28.0-37.0); MCV 86.2 fL (80.0-100.0); MONOCYTES 13.1 %; MPV 7.9 fl. (7.2-11.1); NUCLEATED RBCS 0 /100WBC; PLATELET COUNT* 270 thou/uL (150-400); POLYS 75.3 %; RDW-CV 14.3 % (10.5-14.5); WBC 12.5 thou/uL (4.0-11.0)
[2019-03-23 16:40] LABS: BE 1.7 mmol/L (-2 to +3); PCO2 35.8 mmHg (35.0-45.0); PO2 62.5 mmHg (75.0-100.0); pH 7.465 (7.340-7.450)
[2019-03-23 16:44] LABS: CALCIUM 9.1 mg/dL (8.5-10.1); CREATININE 1.4 mg/dL (0.6-1.3); POTASSIUM 3.8 mmol/L (3.5-5.1)
[2019-03-23 16:49] LABS: ALBUMIN 3.8 g/dL (3.4-5.0); MAGNESIUM 2.3 mg/dL (1.8-2.4); TOTAL BILIRUBIN 0.7 mg/dL (<0.1-1.0); TOTAL PROTEIN 7.5 g/dL (6.4-8.2)
[2019-03-23 19:32] VITALS: BP 115/60
[2019-03-23 19:50] VITALS: BP 108/61
--- NOTE | 2019-03-24 05:53 | NUR ---
PT ADMITTED TO RM 311 FROM ER @ 1950. REPORT GIVEN BY JONNIE ER NURSE. PT WAS ALERT AND ORIENTED. CONFUSED. VISUAL HALLUCINATION PRESENT THIS SHIFT. AT BEDSIDE. PARTICIPATED IN PROVIDING PT'S HX. SIGNED FORMS FOR PT. PT ABLE TO ANSWER STRAIGHT FORWARD QUESTIONS. PT HAS PACEMAKER. PAIN PUMP TO RLQ ABD. REDNESS AND BRUISING/SCAR TO EXTREMETIES. RFA IV WITH NS @ 100. FALL PRECAUTION IN PLACE. PER , PT HAD A FALL LAST WEEK. PT TO URINALS FOR VOIDING. MED RECONCILED WITH SHE HAS A LIST OF MEDS. CHRONIC CONSTIPATION. LAST BM T-3. PT ON BOWEL REGIMEN AT HOME. PER BM NOTED EVERY 3-5 DAYS IS NORMAL FOR PT. CALL LIGHT WITHIN REACH. HOURLY ROUNDINGS MADE. WILL CONTINUE TO MONITOR.
[2019-03-24] MEDS ORDERED: CYMBALTA60 MG PO (07:50)
[2019-03-24] MEDS ORDERED: SENNA PLUS TAB1 EACH PO (07:54)
[2019-03-24] MEDS ORDERED: HYDROXYZINE HCL25 M2 PO (07:56)
[2019-03-24] MEDS ORDERED: CELEXA 20 MG TA20 MG PO (07:58)
[2019-03-24 08:00] VITALS: BP 121/64
[2019-03-24 09:31] LABS: AMP/METHAMP Negative (Negative); BARBITURATES Negative (Negative); BENZODIAZEPINES Negative (Negative); COCAINE Negative (Negative); METHADONE Negative (Negative); OPIATES POSITIVE (Negative); PCP Negative (Negative); THC Negative (Negative)
--- NOTE | 2019-03-24 12:33 | EKG ---
[place] [address] ELECTROCARDIOGRAM REPORT Name: TONY TONEY Room: [address] ADM IN M.R.#: [id number] Admission: 03/23/19 Attend Phys: Teofilo Paredes Discharge: Date of : 45 Report #: [id number] THIS REPORT FOR: //name// [facility] ED Test Date: 2019-03-23 Test Time: 16:15:50 Pat Name: TONY TONEY Department: Room: [address] Gender: M Fashion Editor: STARR : 1945 Requested By: Lindy Hoyos Order Number: [id number] Lizbeth MD: Tony Dockery Measurements Intervals [place] Rate: 73 P: MN: 255 QRS: -34 QRSD: 180 T: -17 QT: 521 QTc: 575 Interpretive Statements sinus rhythm old inferior infarction Right bundle branch block Compared to ECG 08/27/2018 17:39:41 Right bundle-branch block now present Electronically Signed On 03-24-2019 12:32:34 E MERCHANT by Tony Dockery [email or web address] <ELECTRONICALLY SIGNED> By: Tony Dockery MD, [facility] 03/24/19 1232 [id number] [id number] Tony Dockery MD, [facility] /EPI
[2019-03-24 15:30] VITALS: BP 125/67
--- NOTE | 2019-03-24 16:03 | NUR ---
Pt known to SW from previous admissions and pt hx of [facility] inpt rehab unit. Pt lives at home with and present with pt. Pt has home oxygen, pain pump through [employer], hx of HH through [facility]. Pt also has hx of inpt rehab at [place] and SNF at [facility]. SW to continue to follow to assist with safe dc planning.
--- NOTE | 2019-03-24 18:28 | NUR ---
PATIENT RESTING IN BED. PATIENT HAS COMPLAINTS OF BACK PAIN, TREATED ADEQUATELY WITH MEDICATION. PATIENT HAD CT, EEG AND US WITHOUT INCIDENT. PATIENT TOLERATING DINNER THIS EVENING. PATIENT DENIES ANY NEEDS AT THIS TIME. AT BEDSIDE. CALL LIGHT WITHIN REACH. WILL CONTINUE TO MONITOR.
[2019-03-24 19:40] VITALS: BP 130/64
--- NOTE | 2019-03-25 05:53 | NUR ---
PT A&O X4. CONFUSED. VISUAL HALLUCINATION. VSS ON 3L NC. NIGHT MOOD MED REORDERED PER DORIS NOVA. MUCINEX ORDERED PER PT'S REQUEST. PT DC'D IV. NO IV ACCESS AT THIS TIME. DR NOVA NOTIFIED. OK TO LEAVE OUT IV. AT BEDSIDE THIS SHIFT. PAIN MED GIVEN X1 THIS SHIFT. FALL PRECAUTION IN PLACE. CALL LIGHT WITHIN REACH. HOURLY ROUNDINGS MADE. WILL CONTINUE TO MONITOR.
[2019-03-25 06:00] LABS: ABSOLUTE BASOPHILS 0.1 thou/uL (0.0-0.2); ABSOLUTE EOSINOPHILS 0.1 thou/uL (0.0-0.7); ABSOLUTE LYMPHOCYTES 0.9 thou/uL (0.8-5.3); ABSOLUTE NEUTROPHILS 7.6 thou/uL (1.6-8.1); BASOPHILS 0.5 %; EOSINOPHILS 0.8 %; HEMATOCRIT 38.5 % (42.0-52.0); HEMOGLOBIN 12.7 gm/dL (14.0-18.0); LYMPHOCYTES 9.3 %; MCH 28.8 pg (26.0-34.0); MCHC 33.1 g/dL (28.0-37.0); MONOCYTES 10.5 %; MPV 7.6 fl. (7.2-11.1); NUCLEATED RBCS 0 /100WBC; PLATELET COUNT* 208 thou/uL (150-400); POLYS 78.9 %; RBC 4.43 mil/uL (4.50-6.00); RDW-CV 14.3 % (10.5-14.5); WBC 9.6 thou/uL (4.0-11.0)
[2019-03-25 06:32] LABS: ALBUMIN 3.3 g/dL (3.4-5.0); CALCIUM 8.4 mg/dL (8.5-10.1); CREATININE 1.1 mg/dL (0.6-1.3); POTASSIUM 3.9 mmol/L (3.5-5.1); TOTAL BILIRUBIN 0.8 mg/dL (<0.1-1.0); TOTAL PROTEIN 6.4 g/dL (6.4-8.2)
[2019-03-25 08:15] VITALS: BP 156/77
[2019-03-25 16:00] VITALS: BP 145/78
[2019-03-25 20:30] VITALS: BP 156/80
--- NOTE | 2019-03-25 23:48 | NUR ---
PT OUT TO DESK STATING THAT PT WAS GETTING AGGITATED, TRYING TO GET OOB, AND WANTING "NERVE PILLS" TO CALM DOWN. PO MEDS GIVEN FOR AGITATION, PT THINKS HE IS AT HOME, IS AGITATED, WANTING STAFF TO GET OUT OF HIS HOUSE, WANTING TO WALK TO THE FRONT DOOR. IV SL AT THIS TIME PER PT THREAT OF PULLING IT OUT. PT SAT UP ON SIDE OF BED AND STAND AT BEDSIDE WITH ASSIST 2 STAFF, UNABLE TO STAND ON HIS OWN, NOT TAKING DIRECTIONS TO PIVOT AND SIT IN CHAIR. BACK INTO BED, PT TALKING HATEFULLY TO AND STAFF, THREATENING TO HIT US, CURSING. PUSHES HIMSELF UP INTO BED, REFUSING ASSISTANCE FROM OR STAFF. YELLING AT TO GET OUT OF ROOM. LEAVES FOR WAITING ROOM. PILLOW ADJUSTED TO PT LIKING FOR HIS HEAD, CLOSES EYES. BED ALARM TURNED ON, CALL LITE IN EASY REACH, WILL CONTINUE TO MONITOR. APOLOGETIC FOR PT BEHAVIOR STATES SHE IS GOING HOME FOR THE NIGHT TO REST AND "CLEAN UP". REASSURANCE GIVEN. WILL CONTINUE TO MONITOR PT, BED ALARM ON, BSR UP X3, CALL LITE IN EASY REACH.
[2019-03-26 04:15] LABS: HEMATOCRIT 39.6 % (42.0-52.0); HEMOGLOBIN 13.1 gm/dL (14.0-18.0); MCH 28.8 pg (26.0-34.0); MCV 87.2 fL (80.0-100.0); MPV 7.5 fl. (7.2-11.1); RBC 4.54 mil/uL (4.50-6.00); WBC 12.9 thou/uL (4.0-11.0)
[2019-03-26 04:17] LABS: ABSOLUTE BASOPHILS 0.1 thou/uL (0.0-0.2); ABSOLUTE LYMPHOCYTES 0.9 thou/uL (0.8-5.3); ABSOLUTE MONOCYTES 1.3 thou/uL (0.0-1.2); ABSOLUTE NEUTROPHILS 9.6 thou/uL (1.6-8.1); BASOPHILS 0.9 %; EOSINOPHILS 0.4 %; HEMATOCRIT 38.5 % (42.0-52.0); HEMOGLOBIN 12.8 gm/dL (14.0-18.0); LYMPHOCYTES 7.5 %; MCH 28.9 pg (26.0-34.0); MCHC 33.3 g/dL (28.0-37.0); MCV 86.8 fL (80.0-100.0); MONOCYTES 11.2 %; MPV 7.7 fl. (7.2-11.1); NUCLEATED RBCS 0 /100WBC; PLATELET COUNT* 226 thou/uL (150-400); RBC 4.44 mil/uL (4.50-6.00); RDW-CV 14.1 % (10.5-14.5)
[2019-03-26 04:31] LABS: ALBUMIN 3.2 g/dL (3.4-5.0); CALCIUM 7.9 mg/dL (8.5-10.1); TOTAL BILIRUBIN 0.9 mg/dL (<0.1-1.0); TOTAL PROTEIN 6.4 g/dL (6.4-8.2)
--- NOTE | 2019-03-26 05:24 | NUR ---
PT CALMED SOME AFTER EARLIER MEDS GIVEN, PO DILAUDID GIVEN ONCE MORE PER PT REQUEST. REMAINS CONFUSED, AO TO SELF, THINKS HE IS AT HOME. SETTING OFF BED ALARM 3 OR 4 TIMES TRYING TO GET OOB BETWEEN SIDERAILS. O2 3L, PT TAKES O2 OFF FREQUENTLY, SOMETIMES REFUSING TO PUT IT BACK ON AND SOMETIMES ALLOWING STAFF TO PLACE IT BACK ON. INCONTINENT URINE, ATTEMPTED TO STAND PT AT SIDE OF BED PER HIS REQUEST TO VOID BUT PT BECOMES VERY WEAK, FATIQUED AND SOARES. ASSISTED TO USE URINAL. AWAKE AND TALKING MUCH OF THE NIGHT, BECOMES AGITATED WHEN HE WANTS TO GET OOB BUT FOR SAFETY MUST USE GAIT BELT AND MAX ASSIST JUST TO STAND AND PIVOT. BED ALARM ON FOR SAFETY, FREQUENT OBSERVATION, PT WILL NOT KEEP GOWN OR SOCKS ON, PULLING AT COVERS TAKING THEM OFF WELL. AM LABS. CALL LITE IN EASY REACH, BED ALARM ON FOR SAFETY.
[2019-03-26 06:05] LABS: ESR (SEDRATE) 15 mm/hr (0-20)
[2019-03-26 07:45] VITALS: BP 151/74
--- NOTE | 2019-03-26 10:14 | CON ---
[address] [address] CONSULTATION Name: TONY TONEY Room: [address] ADM IN M.R.#: [id number] Admission: 03/23/19 Attend Phys: Teofilo Paredes Discharge: Date of : 45 Report #: [id number] THIS REPORT FOR: //name// CC: Neel Hassanon Roger Benitez DATE OF SERVICE: 03/24/2019 NEUROLOGY CONSULTATION HISTORY OF PRESENT ILLNESS: The patient is a 74-year-old male, who presents with very vivid hallucinations. Sometimes the patient sees a string and tries to wind of the string. This is not the first time the patient has had hallucinations. He was admitted to [facility] last year with hallucinations, but had a urinary tract at that same time. Once the urinary tract was resolved, the hallucinations went away. However, when the patient went home, eventually, the hallucinations have started back up again. I was able to speak to his , who was a very good historian. She states that the patient does have some difficulty with his memory. He no longer drives. He has chronic pain and does not sleep well at night. He has a pain pump and he also takes Dilaudid 4 mg every 4 hours and even takes the medication in the middle of the night if necessary. She thinks he takes anywhere from 4-5 tablets of Dilaudid a day. During this patient's hospitalization, his liver functions have been increasing and this is currently being worked up. PAST SURGICAL HISTORY: Bilateral hip fractures, back surgery x 5, cardiac stents, pacemaker placement, pain pump placement. PAST MEDICAL HISTORY: COPD, anemia, coronary artery disease, peripheral vascular disease, dementia, hypothyroidism. MEDICATIONS: Reported medications from home: Plavix 75 mg daily, Pulmicort b.i.d., furosemide 40 mg b.i.d., Synthroid 50 mcg daily, Wellbutrin SR 150 mg daily, Lipitor 40 mg daily, Singulair 10 mg at bedtime, Coreg 12.5 mg b.i.d., potassium 20 mEq b.i.d., hydromorphone 4 mg q.4 hours, Brovana b.i.d., amiodarone 200 mg b.i.d., Cymbalta 60 mg at bedtime, senna b.i.d., hydroxyzine 25 mg p.r.n., citalopram 20 mg daily, aspirin 81 mg daily, magnesium 400 mg daily, Centrum Silver daily, vitamin D 1000 units daily. ALLERGIES: PENICILLIN, TETANUS. PHYSICAL EXAMINATION: VITAL SIGNS: Temperature 36.8, pulse rate 71, respiratory rate 18, blood pressure 156/77, bedside pulse oximetry 97% on 3 L nasal cannula. NEUROLOGIC: Cranial nerves 2-12 are grossly intact[place] [address] CONSULTATION Name: TONY TONEY Room: [address] IN M.R.#: [id number] Admission: 03/23/19 Attend Phys: Teofilo Paredes Discharge: Date of : 45 Report #: [id number] symmetrical strength in all 4 extremities with tone and bulk normal. Reflexes are trace throughout. Plantar responses are flexor. There is no evidence of dysmetria. The patient is alert and oriented to place and time. LABORATORY WORK: Hematology: White blood cell count 9.6, hemoglobin 12.7, hematocrit 38.5, MCV 87, platelet count 208,000. Urinalysis negative. Blood gas pH 7.465, pCO2 of 35.8, pO2 of 62.5, O2 saturation 91.8%. Chemistry: Sodium 137, potassium 3.9, chloride 103, carbon dioxide 25, BUN 16, creatinine 1.1, GFR 65, glucose 77, lactic acid 1.2, calcium 8.4, magnesium 2.3, total bilirubin 0.8, AST on admission 88 and now 103, ALT on admission 164 and now 184, alkaline phosphatase 92. Ammonia less than 10. C-reactive protein 47.6. Total protein 6.4. Albumin 3.3. TSH 12.9, free of T4 1.24. IMPRESSION: The patient has very vivid hallucinations. His past medical history states that he has dementia. I wonder whether this patient has Lewy body dementia as his hallucinations are so vivid and there is no other cause for him to hallucinate. He appears to have no underlying infection. The chest x-ray shows no evidence of pneumonia. The urinary tract shows no evidence of urinary tract infection. I am concerned about his slowly rising liver functions, but his ammonia level is normal. I had considered beginning quetiapine, but this causes QT prolongation, and on the EKG, his QT interval is 521. The next best option may be gabapentin 100 mg b.i.d. The patient has had a CT scan of the head, which is unremarkable, and an electroencephalogram, which is also unremarkable with no evidence of seizure or clear focal abnormality, although there was some muscle artifact on the recording making it less than ideal. I do think the patient would benefit from a B12 level and also a neuropsych testing to be done as outpatient and I can help him set this up. I thank you for your kind referral of the patient. We will continue to follow him with you. <ELECTRONICALLY SIGNED> By: Perla Velazquez DO 03/26/19 1014 1103 [id number] Velazquez, DO /nt
[2019-03-26 13:35] VITALS: BP 138/88
--- NOTE | 2019-03-26 19:47 | NUR ---
PATIENT REPORTED "I FEEL LIKE I'M HAVING A HEART ATTACK." AT 1325. PATIENT REPORTED ARM PAIN AND SHORTNESS OF BREATH. DR. SÁNCHEZ NOTIFIED. NEW ORDERS RECEIVED. PATIENT REFUSED AFTER INITIAL ATTEMPS TO COLLECT LABS. CUPROUS CHLORIDE HELPER WILL RE-ATTEMPT IF PATIENT MORE AREEGABLE LATER. DR. SÁNCHEZ NOTIFIED. PATIENT IS NOW RESTING IN BED WITH AT BEDSIDE. PATIENT DENIES FURTHER NEEDS AT THIS TIME.
[2019-03-26 19:50] VITALS: BP 154/74
--- NOTE | 2019-03-27 05:40 | NUR ---
PT SLEPT MUCH BETTER TONIGHT THAN LAST NIGHT. HAS BEEN CALM AND RESTING QUIETLY MOST OF THE NIGHT. TAKING PO PAIN AND ANXIETY MED PRN. TAKES PILLS ONE OR TWO AT A TIME WITH WATER. ORIENTED TO SELF, CONFUSED-THINKS THERE ARE DOGS IN HIS ROOM, GRABBING AT "STRINGS" IN THE AIR. HAS ASKED WHERE HE IS AT ONCE OR TWICE AND ACCEPTS ANSWER THAT HE IS AT HOSPITAL. AT BEDSIDE OVERNIGHT, ATTENTIVE TO NEEDS. NO AGGRESSIVE BEHAVIOR THIS SHIFT, JUST RESTLESS AT TIMES. ASSISTANCE GIVEN TO USE URINAL PER AND STAFF, SOME INCONTINENCE. PASSING GAS BUT NO BM THIS SHIFT. AM LABS DRAWN. O2 3L NC. R FOOT IVF INFUSING PER PUMP, ABX GIVEN ORDERED. CALL LITE IN EASY REACH, BED ALARM ON FOR SAFETY.
[2019-03-27 05:45] LABS: ABSOLUTE LYMPHOCYTES 0.7 thou/uL (0.8-5.3); ABSOLUTE MONOCYTES 1.1 thou/uL (0.0-1.2); ABSOLUTE NEUTROPHILS 7.9 thou/uL (1.6-8.1); BASOPHILS 0.3 %; EOSINOPHILS 0.2 %; HEMATOCRIT 36.7 % (42.0-52.0); HEMOGLOBIN 12.4 gm/dL (14.0-18.0); MCH 29.1 pg (26.0-34.0); MCHC 33.8 g/dL (28.0-37.0); MCV 86.3 fL (80.0-100.0); MONOCYTES 11.6 %; MPV 7.7 fl. (7.2-11.1); NUCLEATED RBCS 0 /100WBC; PLATELET COUNT* 193 thou/uL (150-400); POLYS 80.9 %; RBC 4.25 mil/uL (4.50-6.00); RDW-CV 14.1 % (10.5-14.5); WBC 9.8 thou/uL (4.0-11.0)
[2019-03-27 05:50] LABS: PROTIME 10.5 Seconds (9.20-11.50)
[2019-03-27 06:01] LABS: ALBUMIN 2.6 g/dL (3.4-5.0); CALCIUM 7.6 mg/dL (8.5-10.1); CREATININE 0.8 mg/dL (0.6-1.3); POTASSIUM 3.4 mmol/L (3.5-5.1); TOTAL BILIRUBIN 0.9 mg/dL (<0.1-1.0); TOTAL PROTEIN 5.8 g/dL (6.4-8.2)
[2019-03-27 08:10] VITALS: BP 154/74
--- NOTE | 2019-03-27 15:18 | EKG ---
[place] [address] ELECTROCARDIOGRAM REPORT Name: TONY TONEY Room: [address] ADM IN M.R.#: [id number] Admission: 03/23/19 Attend Phys: Teofilo Paredes Discharge: Date of : 45 Report #: [id number] THIS REPORT FOR: //name// [facility] Test Date: 2019-03-26 Test Time: 13:38:04 Pat Name: TONY TONEY Department: Room: [address] Gender: M Lactation Nurse: NAVID : 1945 Requested By: Chilango Patricia Order Number: [id number] Lizbeth MD: Tony Dockery Measurements Intervals [place] Rate: 71 P: -19 VT: 249 QRS: -5 QRSD: 158 T: -59 QT: 509 QTc: 554 Interpretive Statements Sinus rhythm old inferior infarction artifact noted Prolonged VT interval nonspecific t wave changes Compared to ECG 03/23/2019 16:15:50 Right bundle-branch block no longer present Electronically Signed On 03-27-2019 15:17:21 PORTABLE GRINDING MACHINE OPERATOR by Tony Dockery [email or web address] <ELECTRONICALLY SIGNED> By: Tony Dockery MD, [facility] 03/27/19 1517 1338 1338 Tony Dockery MD, [facility] /EPI
[2019-03-27 16:15] VITALS: BP 139/85
--- NOTE | 2019-03-27 17:17 | NUR ---
PT AWAKE/ALERT TO SELF, . PT HAS BEEN CONFUSED, BUT NOT AGITATED THIS SHIFT. IV ACCESS TOR FOOT DC'D AND JONATHAN RN PLACED 18g TO RFA. PT ON 3L O2 BY NASAL CANNULA. PT IS INCONTINENT, BRIEFED DURING DAY. PT RESTLESSNESS MAY INDICATE NEED TO TOILET. PT HAS PAIN PUMP IMPLANTED IN RLQ, PACEMAKER IMPANTED TO L CHEST. PT MEDS ADMINISTERED LATER IN SHIFT PER PT/ REQUEST TO ALLOW PT TO REST LONGER. PER PT PT IS IMPROVED THIS SHIFT. PT SEEN BY THERAPY THIS SHIFT. PT HAS PO DILAUDUD FOR C/O PAIN. PT REQUESTED X2 THIS SHIFT. PT CONTINUES TO REST IN ROOM WITH CALL LIGHT IN REACH. WILL CONTINUE TO MONITOR.
[2019-03-27 21:00] VITALS: BP 130/62
[2019-03-28 05:29] LABS: ALBUMIN 2.5 g/dL (3.4-5.0); CALCIUM 7.6 mg/dL (8.5-10.1); CREATININE 0.9 mg/dL (0.6-1.3); POTASSIUM 3.7 mmol/L (3.5-5.1); TOTAL BILIRUBIN 0.7 mg/dL (<0.1-1.0); TOTAL PROTEIN 5.7 g/dL (6.4-8.2)
--- NOTE | 2019-03-28 06:12 | NUR ---
PATIENT SLEPT MOST OF THE NIGHT. IV FLUIDS AND ANTIBIOTICS WERE GIVEN ORDERED. PATIENT WAS GIVEN PAIN MEDICINE TWICE. WILL CONTINUE TO MONITOR.
[2019-03-28 07:50] VITALS: BP 97/50
[2019-03-28 15:30] VITALS: BP 147/68
--- NOTE | 2019-03-28 18:31 | NUR ---
PT AWAKE/ALERT. ORIENTED TO PLACE AND PERSON. KNOWS AND WHEN HE HAS TO USE THE COMMODE. PT REPORTS IMPROVEMENT IN AWARENESS AND BEHAVIOR. PT STANDS W/ASSIST X2 AND GAIT BELT. PT BATHED WITH THERAPY THIS SHIFT. PT UP TO RECLINER FOR MEALS AND VISIT WITH SPOUSE. NO REQUEST FOR PAIN MEDICATION THIS SHIFT. PT ON 2L O2 BY NASAL CANNULA. PT HAD LG HARD STOOL THIS SHIFT. PT HAS IV TO RFA PLACED BY JONATHAN VAIL. PT TO BE NPO AFTER NPO FOR EGD IN THE AM. PT PACE ANALYST MEDS HELD BY NOC SHIFT. MEDS ADMINSTERED WITH AM PASS BY THIS RN. PT HAS RED/OPEN AREA TO BUTTOCK. CREAM APPLIED TO AREA. PT RESTS IN ROOM AT THIS TIME, CALL LIGHT IN REACH. WILL CONTINUE TO MONITOR.
[2019-03-28 20:00] VITALS: BP 134/67
[2019-03-29 05:22] LABS: ABSOLUTE EOSINOPHILS 0.2 thou/uL (0.0-0.7); ABSOLUTE MONOCYTES 0.9 thou/uL (0.0-1.2); ABSOLUTE NEUTROPHILS 6.3 thou/uL (1.6-8.1); BASOPHILS 0.5 %; EOSINOPHILS 2.2 %; HEMATOCRIT 34.6 % (42.0-52.0); HEMOGLOBIN 11.6 gm/dL (14.0-18.0); LYMPHOCYTES 11.3 %; MCH 29.1 pg (26.0-34.0); MCHC 33.5 g/dL (28.0-37.0); MCV 86.8 fL (80.0-100.0); MONOCYTES 10.6 %; MPV 7.9 fl. (7.2-11.1); NUCLEATED RBCS 0 /100WBC; PLATELET COUNT* 186 thou/uL (150-400); POLYS 75.4 %; RBC 3.98 mil/uL (4.50-6.00); RDW-CV 14.3 % (10.5-14.5); WBC 8.4 thou/uL (4.0-11.0)
[2019-03-29 05:44] LABS: CALCIUM 7.8 mg/dL (8.5-10.1); CREATININE 0.8 mg/dL (0.6-1.3)
--- NOTE | 2019-03-29 06:06 | NUR ---
PATIENT SLEPT MOST OF THE NIGHT. IV FLUIDS CONTINUE TO INFUSE ORDERED. PATIENT WAS GIVEN PAIN MEDICINE ONCE THIS SHIFT. PATIENT HAS BEEN NPO SINCE MIDNIGHT FOR EGD TODAY. REMAINS AT BEDSIDE. WILL CONTINUE TO MONITOR.
[2019-03-29 07:55] VITALS: BP 134/67; BP 137/67
--- NOTE | 2019-03-29 10:55 | NUR ---
WOUND CARE NOTE: WAS REQUESTED TO ASSESS LESION TO LEFT BUTTOCK PER PATIENT'S STEM CUTTER. PATIENT PRESENTS WITH A PARTIAL THICKNESS LESION TO THE LEFT SIDE OF HIS SACRUM/BUTTOCKS. STATES IT HAS BEEN COMING AND GOING FOR A WHILE. WOUND MEASURES 0.2X0.4X0.2. DRY, RED WOUND BED. DUSTY-WOUND WITH NEW EPITHELIUM. STAFF AND HAVE BEEN APPLYING BARRIER OINTMENT, WOULD RECOMMEND CONTINUING THIS TREATMENT. EDUCATED PATIENT AND ON NOT USING BRIEFS WHILE IN BED TO ASSIST WITH HEALING OF THIS SITE. STATES THAT WHEN THE PATIENT DOES WEAR THESE AT HOME, IT TENDS TO GET WORSE. EDUCATED ON RATIONALE OF THIS. COMMUNICATED UNDERSTANDING. RECOMMEND NO BRIEFS IN BED BARRIER OINTMENT TO AREA BID AND PRN OFFLOAD SITE
--- NOTE | 2019-03-29 13:55 | NUR ---
SW aware of pt to have EGD today. Inpt rehab able to accept pt when pt medically ready or plan could be home with HH if pt no longer needing inpt rehab at dc. SW to continue to follow to assist with safe dc planning.
[2019-03-29 16:25] VITALS: BP 126/66
--- NOTE | 2019-03-29 17:09 | NUR ---
UPON ASSISTING PT TO CART FROM W/CHAIR AFTER ARRIVAL TO PREOP, PT BECAME EXTREMELY WEAK AND WAS LOWERED TO THE FLOOR. NO FALL OCCURRED. PT LIFTED BACK INTO CART W/ASSISTANCE OF 4 NURSES AND 1 RT. NO INJURIES NOTED. DR. MAYO AWARE PRIOR TO EGD. AT CARTSIDE ENTIRE TIME.
--- NOTE | 2019-03-29 18:05 | NUR ---
PATIENT RESTING IN BED. AT BEDSIDE. PATIENT HAD EGD THIS AFTERNOON. PATIENT HAS GOOD APPETITE THIS EVENING. PATIENT TOLERATING NEW MEDICATIONS. PATIENT IS UP WITH MAX ASSIST OF 2 WITH GAIT BELT FOR TRANSFERS. PATIENT HAS HAD COMPLAINTS OF PAIN, TREATED ADEQUATELY WITH MEDICATION. PATIENT DENIES ANY NEEDS AT THIS TIME. CALL LIGHT WITHIN REACH. WILL CONTINUE TO MONITOR.
[2019-03-29 21:00] VITALS: BP 100/61
[2019-03-30 04:18] LABS: HEMATOCRIT 33.6 % (42.0-52.0); HEMOGLOBIN 11.5 gm/dL (14.0-18.0); MCH 29.4 pg (26.0-34.0); MCV 86.2 fL (80.0-100.0); MPV 7.6 fl. (7.2-11.1); RBC 3.9 mil/uL (4.50-6.00); RDW-CV 14.8 % (10.5-14.5); WBC 8.3 thou/uL (4.0-11.0)
[2019-03-30 04:31] LABS: ALBUMIN 2.4 g/dL (3.4-5.0); CALCIUM 7.9 mg/dL (8.5-10.1); CREATININE 0.8 mg/dL (0.6-1.3); MAGNESIUM 1.9 mg/dL (1.8-2.4); POTASSIUM 4.1 mmol/L (3.5-5.1); TOTAL BILIRUBIN 0.7 mg/dL (<0.1-1.0); TOTAL PROTEIN 5.8 g/dL (6.4-8.2)
--- NOTE | 2019-03-30 06:08 | NUR ---
PATIENT SLEPT MOST OF THE NIGHT. IV REMAINS SALINE LOCKED. PATIENT WAS GIVEN PAIN MEDICINE ONCE THIS SHIFT. PATIENT SATS DROPPED TO MID 80'S ON 3L WHILE SLEEPING ABOUT 2100. PATIENT WAS PLACED ON HFNC AT 7L AND IS SATTING 92-93%. REMAINS AT BEDSIDE. WILL CONTINUE TO MONITOR.
[2019-03-30 08:25] VITALS: BP 110/53
--- NOTE | 2019-03-30 14:04 | NUR ---
Nutrition: Pt admitted with debility. H/o dementia, COPD. Regular diet ordered. stated pt wasn't eating too well when he was feeling sicker earlier this week, but is eating much better now. He doesn't like Ensures. Takes MVI now. She reported some fluid still on his lungs. Albumin 2.4, prealb 13.8. Wt: 200# Was seen for LOS. Awaiting disch to home or rehab for weakness in legs, per . Pt is eating well and he stated he is feeling somewhat better. Was sitting in chair during visit. Mild nutrition risk. GOALS: >75% meal intake.
[2019-03-30 16:52] VITALS: BP 97/49
--- NOTE | 2019-03-30 18:09 | NUR ---
PATIENT RESTING IN BED. PATIENT HAS COMPLAINTS OF CHRONIC LEG PAIN, TREATED ADEQUATELY WITH MEDICATION. PATIENT IS UP WITH MAX ASSIST OF 2. PATIENT HAS BEEN UP IN CHAIR MOST OF DAY. PATIENT WORKED WITH THERAPY THIS AM. PATIENT CHANGED TO HONEY THICK LIQUIDS BY SPEECH THERAPY UNTIL SWALLOW STUDY TOMORROW. PATIENT DENIES ANY NEEDS AT THIS TIME. CALL LIGHT WITHIN REACH. WILL CONTINUE TO MONITOR. AT BEDSIDE.
[2019-03-30 19:35] VITALS: BP 110/55
[2019-03-31 04:20] LABS: HEMATOCRIT 34.5 % (42.0-52.0); HEMOGLOBIN 11.8 gm/dL (14.0-18.0); MCH 29.6 pg (26.0-34.0); MCHC 34.1 g/dL (28.0-37.0); MCV 86.6 fL (80.0-100.0); MPV 7.3 fl. (7.2-11.1); RBC 3.98 mil/uL (4.50-6.00); RDW-CV 14.3 % (10.5-14.5); WBC 7.7 thou/uL (4.0-11.0)
[2019-03-31 04:41] LABS: ALBUMIN 2.4 g/dL (3.4-5.0); CALCIUM 8.1 mg/dL (8.5-10.1); CREATININE 0.8 mg/dL (0.6-1.3); MAGNESIUM 1.9 mg/dL (1.8-2.4); POTASSIUM 3.9 mmol/L (3.5-5.1); TOTAL BILIRUBIN 0.6 mg/dL (<0.1-1.0); TOTAL PROTEIN 5.9 g/dL (6.4-8.2)
--- NOTE | 2019-03-31 05:37 | NUR ---
PT SLEPT WELL OVERNIGHT, AT BEDSIDE ATTENTIVE TO CARES. USING URINAL TO VOID. SLIV LFA. O2 6L SAT MID 90'S, CONTINUOUS PULSE OX ON OVERNIGHT. AO FORGETFUL AND CONFUSED AT TIMES BUT CALM AND COOPERATIVE THIS SHIFT. TAKING PILLS WHOLE WITH HONEY THICK LIQUIDS, ST FOLLOWING. RECEIVED PO DILAUDID FOR CO LEG PAIN AT HS WITH GOOD RESULT. UP FROM CHAIR TO BED 2 PERSON MAX ASSIST, GB AND WALKER. AM LABS DRAWN. CALL LITE IN EASY REACH, BED ALARM ON FOR SAFETY.
[2019-03-31 07:45] VITALS: BP 122/62
[2019-03-31] MEDS ORDERED: CLOTRIMAZOLE10 MG BUCCAL (09:38)
[2019-03-31] MEDS ORDERED: PANTOPRAZOLE SO40 M1 PO (09:38)
[2019-03-31] MEDS ORDERED: CEFDINIR300 MG PO (09:38)
[2019-03-31] MEDS ORDERED: CARAFATE 1 GM TA1 G1 PO (09:38)
[2019-03-31] MEDS ORDERED: MUCINEX600 MG PO (09:38)
[2019-03-31 14:06] VITALS: BP 122/62
--- NOTE | 2019-03-31 15:40 | NUR ---
PATIENT DISCHARGED TO INPATIENT REHAB. REPORT GIVEN TO CASI. BELONGINGS PACKED AND TAKEN TO ROOM 323. PATIENT TAKEN BY BED TO ROOM. AT BEDSIDE.
[2019-03-31] MEDS ORDERED: ACETAMINOPHEN PO (17:50)
[2019-03-31] MEDS ORDERED: MYLANTA MAXIMU355 ML PO (17:51)
[2019-03-31] MEDS ORDERED: MILK OF MA400 MG/5 M PO (17:53)
[2019-03-31] MEDS ORDERED: DULCOLAX10 MG RECTAL (17:56)
[2019-03-31] MEDS ORDERED: COLACE100 MG PO (17:57)
[2019-03-31] MEDS ORDERED: FLEET ENEMA133 ML RECTAL (17:59)
[2019-03-31] MEDS ORDERED: AMBIEN5 MG PO (18:00)
--- NOTE | 2019-04-02 09:28 | CON ---
[address] [address] CONSULTATION Name: TONY TONEY Room: [address] IN M.R.#: [id number] Admission: 03/23/19 Attend Phys: Teofilo Paredes Discharge: 03/31/19 Date of : 45 Report #: [id number] THIS REPORT FOR: //name// CC: Neel Tariq DO MD Roger Patel MD, DO DATE OF SERVICE: 03/25/2019 REFERRING PHYSICIAN: Roger Benitez MD REASON FOR CONSULTATION: Elevated liver function test. IMPRESSION: 1. Elevated liver function tests of uncertain significance and etiology. 2. Abnormal CAT scan suggestive of possible cystic duct stone and possibly distal common bile duct stone, but no history to suggest symptomatic biliary tract disease. 3. Mental status changes and hallucinations not related to GI issues - Neurology is following the patient for possible Lewy body dementia. 4. Chronic gastric reflux with history of short segment Almonte's esophagus noted by my partner, Dr. Johnston, in 2010 with the patient not having any examination since that time. 5. History of complicated peptic ulcer disease for which the patient has undergone previous remote surgery over 40 years ago, details of which are unknown. 6. Coronary artery disease requiring chronic Plavix with history of both pacemaker, defibrillator. 7. Chronic pain syndrome requiring chronic narcotics as well as chronic pain pump. 8. Chronic constipation, which is multifactorial with the patient refusing repeat attempt at colonoscopy in 2010, but his bowel preparation was poor. 9. Anemia, which is of uncertain significant etiology. RECOMMENDATIONS: 1. We will repeat labs tomorrow to assess his liver function tests as long as it did not get any worse such as a rise in bilirubin, we will hold off on proceeding with an upper endoscopy until Wednesday to assess the complaints of reflux and determine his anatomy. 2. If, however, his bilirubin should begin to rise in his issues with right upper quadrant pain, fevers, chills, etc., we will proceed with upper endoscopy and possible ERCP tomorrow. We would not be able [place] [address] CONSULTATION Name: TONY TONEY Room: [address] IN M.R.#: [id number] Admission: 03/23/19 Attend Phys: Teofilo Paredes Discharge: 03/31/19 Date of : 45 Report #: [id number] due to him being on Plavix, but we could attempt to place a biliary stent to palliate any type of biliary obstruction. 3. I have discussed the plans with the patient, his and durable power of tax associate attorney and she is agreeable to these plans. The patient is not alert enough to be able to understand all of what I am saying. 4. We will continue to follow the patient while in the hospital. HISTORY OF PRESENT ILLNESS: The patient is a pleasant 74-year-old white male who was actually admitted to the hospital because of mental status changes with hallucinations and worsening issues related to confusion. The patient is on chronic pain medication in the form of narcotics as well as a pain pump and when he came to the Emergency Room, he underwent laboratory testing and CT scans. He had mildly elevated liver function tests and CT scan of the abdomen and pelvis were suggested, there may be a possible cystic duct stone and possibly a common duct stone; both of these were not opacified on CT scan. His common duct was slightly dilated at 6 mm. This is borderline based on the fact that he still has gallbladder in situ. His gives most of the history and she denies any history of him having issues related to his upper GI tract, other than the fact that he has to take Tums on a regular basis for chronic reflux. He does not have any history of any dysphagia, odynophagia, nausea, vomiting, hematemesis or melena. He does have tendency towards chronic constipation for which she gives him MiraLax almost daily or every other day to keep his bowels moving. He typically goes to the bathroom 2-3 times per week. He has not had a repeat colonoscopy as I mentioned above, when he has had a full bowel preparation back in 2010 when he underwent an attempted colonoscopy. The bowel preparation in the transverse colon was very poor and so it was recommended he undergo a 2-day bowel preparation, but he never scheduled this and refused it. He is admitted mostly for mental status change because of elevated liver function test, we were involved in his care. ALLERGIES: HE IS ALLERGIC TO PENICILLIN AND TETANUS. CURRENT MEDICATIONS: Include Plavix, Pulmicort, furosemide, levothyroxine, bupropion or Wellbutrin, atorvastatin, Singulair, carvedilol, potassium, hydromorphone 2 mg every 4 hours, Brovana, amiodarone, takes some senna as well, duloxetine or Cymbalta, hydroxyzine, citalopram, aspirin, magnesium, multivitamin with minerals, Centrum Silver Ultra Men's and vitamin D supplement. PAST MEDICAL AND SURGICAL HISTORY: Remarkable for coronary artery disease, COPD. He has had previous stents placed in the past. He also has a pacemaker, defibrillator. He also has a pain pump in place. He has had back surgery as well. Chronic anemia. He has had problems with vascular issues and some dementia. He has had some problems with chronic low back pain, debility and the like. SOCIAL HISTORY: The patient quit smoking over a year ago, [place] [address] CONSULTATION Name: TONY TONEY Room: [address] IN M.R.#: [id number] Admission: 03/23/19 Attend Phys: Teofilo Paredes Discharge: 03/31/19 Date of : 45 Report #: [id number] a pack per day for over 65 years. He does not drink alcohol. FAMILY HISTORY: Negative. PHYSICAL EXAMINATION: GENERAL: Pleasant 74-year-old gentleman who is not lucid. He is awake, but not lucid and he cannot answer questions reliably. CARDIOPULMONARY: Revealed a regular rate and rhythm. LUNGS: Clear. ABDOMEN: Soft and not tender. No rebound or guarding noted. LABORATORY DATA: From 03/25/2019 revealed a white count of 9.6, hemoglobin 12.7, platelet count 208,000, MCV is 87 and RDW is 14.3. Differential is normal. His sodium is 137, potassium 3.9, chloride 103, bicarbonate is 25, his BUN is 16, creatinine 1.1. His GFR is 65. Total bilirubin 0.8, alkaline phosphatase 92, AST 103, ALT 184. His albumin is only 3.3. By comparison, his liver tests back in 09/16/2018 revealed bilirubin 0.5, alkaline phosphatase of 129, his AST was 36 and his ALT was 51. CT scan of the abdomen and pelvis with contrast revealed findings noted above. Abdominal ultrasound performed on 03/24/2019 revealed gallbladder was distended without any obvious calculi. The bile duct is 6 mm without any gallbladder wall thickening. The patient is not tender. There is no obvious stone noted within the gallbladder neck. DISCUSSION: At the present time, the patient has nonspecific elevated LFTs. We will follow him expectantly at this point in time and depending on results of the same, may need to undergo an abdominal ultrasound. We will follow on the patient and figure out what needs to be done with him while in the hospital. <ELECTRONICALLY SIGNED> By: Giovanni Davila DO 04/02/19 0928 1552 0055Giovanni Davila DO /nt
== END 2019-03-31 15:40 | DRG 177 ==
LOC: M.ERS 15:52 → M.3W 17:32 → M.TBA-ER 17:32 → M.3W 19:50
PROVIDERS: Internal Medicine; Internal Medicine Gastroenterology; Nurse Practitioner Adult Health; Personal Emergency Response Attendant; Surgery; ADMIT Internal Medicine
PROC: 0DJ08ZZ Inspection of Upper Intestinal Tract, Via Natural or Artificial Opening Endoscopic (ICD-10-PCS; principal; 2019-03-29)
DX: J15.6 Pneumonia due to other Gram-negative bacteria (principal); G92 Toxic encephalopathy; J96.21 Acute and chronic respiratory failure with hypoxia; N17.9 Acute kidney failure, unspecified; L02.91 Cutaneous abscess, unspecified; B37.81 Candidal esophagitis; I50.22 Chronic systolic (congestive) heart failure; J44.0 Chronic obstructive pulmonary disease with (acute) lower respiratory infection; I25.10 Atherosclerotic heart disease of native coronary artery without angina pectoris; F03.90 Unspecified dementia, unspecified severity, without behavioral disturbance, psychotic disturbance, mood disturbance, and anxiety; M54.9 Dorsalgia, unspecified; E03.9 Hypothyroidism, unspecified; I73.9 Peripheral vascular disease, unspecified; K21.9 Gastro-esophageal reflux disease without esophagitis; G89.4 Chronic pain syndrome; K59.09 Other constipation; D64.9 Anemia, unspecified; K80.20 Calculus of gallbladder without cholecystitis without obstruction; R74.0 Nonspecific elevation of levels of transaminase and lactic acid dehydrogenase [LDH]; G24.3 Spasmodic torticollis; R13.10 Dysphagia, unspecified; F32.9 Major depressive disorder, single episode, unspecified; Z79.891 Long term (current) use of opiate analgesic; Z87.820 Personal history of traumatic brain injury; I25.2 Old myocardial infarction; Z95.0 Presence of cardiac pacemaker; Z88.0 Allergy status to penicillin; Z88.7 Allergy status to serum and vaccine; Z87.81 Personal history of (healed) traumatic fracture; Z87.11 Personal history of peptic ulcer disease; Z87.891 Personal history of nicotine dependence; Z79.82 Long term (current) use of aspirin; Z79.899 Other long term (current) drug therapy

== ENCOUNTER 2019-03-31 13:46 | Inpatient (IN) | payer MEDICARE, OTHER ==
[~2019-03-31] VITALS: Ht 182.9 cm; Wt 79.2 kg
[~2019-03-31 13:46] MED LIST changes: +AMIODARONE HCL400 MG PO; +CARAFATE 1 GM TA1 G1 PO; +CELEXA 20 MG TA20 MG PO; +CLOTRIMAZOLE10 MG BUCCAL; +CYMBALTA60 MG PO; +HYDROXYZINE HCL25 M2 PO; +MUCINEX600 MG PO; +PANTOPRAZOLE SO40 M1 PO; +PULMICORT0.5 MG/2 M INH
[2019-03-31 16:46] VITALS: BP 108/41
[2019-03-31] MEDS ORDERED: ACETAMINOPHEN PO (17:50)
[2019-03-31] MEDS ORDERED: MYLANTA MAXIMU355 ML PO (17:51)
[2019-03-31] MEDS ORDERED: MILK OF MA400 MG/5 M PO (17:53)
[2019-03-31] MEDS ORDERED: DULCOLAX10 MG RECTAL (17:56)
[2019-03-31] MEDS ORDERED: COLACE100 MG PO (17:57)
[2019-03-31] MEDS ORDERED: FLEET ENEMA133 ML RECTAL (17:59)
[2019-03-31] MEDS ORDERED: AMBIEN5 MG PO (18:00)
[2019-03-31 20:10] VITALS: BP 91/48
[2019-04-01 04:21] LABS: HEMATOCRIT 32.2 % (42.0-52.0); HEMOGLOBIN 11.1 gm/dL (14.0-18.0); MCH 29.6 pg (26.0-34.0); MCHC 34.5 g/dL (28.0-37.0); MCV 85.8 fL (80.0-100.0); MPV 7.4 fl. (7.2-11.1); RBC 3.75 mil/uL (4.50-6.00); RDW-CV 14.7 % (10.5-14.5); WBC 5.8 thou/uL (4.0-11.0)
[2019-04-01 04:30] LABS: CALCIUM 7.7 mg/dL (8.5-10.1); CREATININE 0.8 mg/dL (0.6-1.3); POTASSIUM 3.4 mmol/L (3.5-5.1)
[2019-04-01 08:57] VITALS: BP 122/58
[2019-04-01 20:05] VITALS: BP 92/41
[2019-04-01 21:17] VITALS: BP 114/62
[2019-04-02 07:36] VITALS: BP 124/62
[2019-04-02 20:00] VITALS: BP 101/58
[2019-04-03 05:07] LABS: CALCIUM 8.2 mg/dL (8.5-10.1); CREATININE 0.9 mg/dL (0.6-1.3); MAGNESIUM 2.2 mg/dL (1.8-2.4)
[2019-04-03 08:00] VITALS: BP 123/65
[2019-04-03 19:19] VITALS: BP 100/47
[2019-04-04 07:38] VITALS: BP 103/55
[2019-04-04 19:50] VITALS: BP 101/47
[2019-04-05 07:30] VITALS: BP 138/71
[2019-04-05 20:09] VITALS: BP 118/46
[2019-04-05 20:55] VITALS: BP 118/56
[2019-04-06 08:00] VITALS: BP 124/67
[2019-04-06 20:21] VITALS: BP 91/45
[2019-04-07 08:20] VITALS: BP 97/51
[2019-04-07 20:09] VITALS: BP 114/58
[2019-04-08 07:56] VITALS: BP 147/71
[2019-04-08 19:30] VITALS: BP 102/47
[2019-04-09 07:49] VITALS: BP 114/66
[2019-04-09 19:15] VITALS: BP 94/49
[2019-04-09 20:00] VITALS: BP 106/55
[2019-04-10 06:08] LABS: ALBUMIN 2.6 g/dL (3.4-5.0); CALCIUM 8.2 mg/dL (8.5-10.1); CREATININE 1.2 mg/dL (0.6-1.3); MAGNESIUM 1.9 mg/dL (1.8-2.4); POTASSIUM 4.1 mmol/L (3.5-5.1); TOTAL BILIRUBIN 0.4 mg/dL (<0.1-1.0)
[2019-04-10 08:26] VITALS: BP 103/79
[2019-04-10 19:30] VITALS: BP 104/54
[2019-04-11 08:00] VITALS: BP 126/66
[2019-04-11 20:45] VITALS: BP 112/49
[2019-04-12 07:30] VITALS: BP 142/68
[2019-04-12 19:00] VITALS: BP 108/55
[2019-04-13 04:17] LABS: CREATININE 0.9 mg/dL (0.6-1.3); MAGNESIUM 1.8 mg/dL (1.8-2.4); POTASSIUM 3.9 mmol/L (3.5-5.1)
[2019-04-13 07:49] VITALS: BP 147/75
[2019-04-13 20:14] VITALS: BP 125/59
[2019-04-14 08:15] VITALS: BP 137/65
[2019-04-14 19:55] VITALS: BP 121/62
[2019-04-15 05:53] LABS: ALBUMIN 2.4 g/dL (3.4-5.0); CALCIUM 7.9 mg/dL (8.5-10.1); CREATININE 0.9 mg/dL (0.6-1.3); POTASSIUM 4.2 mmol/L (3.5-5.1); TOTAL BILIRUBIN 0.4 mg/dL (<0.1-1.0); TOTAL PROTEIN 5.7 g/dL (6.4-8.2)
[2019-04-15 07:30] VITALS: BP 142/76
[2019-04-15 20:00] VITALS: BP 102/45
[2019-04-16 07:29] VITALS: BP 117/62
[2019-04-16 19:15] VITALS: BP 91/46
[2019-04-17 08:12] VITALS: BP 158/63
[2019-04-17 19:00] VITALS: BP 88/40
[2019-04-18 07:32] VITALS: BP 122/59
[2019-04-18 19:00] VITALS: BP 81/43
[2019-04-18 20:40] VITALS: BP 90/49
[2019-04-19 07:56] VITALS: BP 119/53
[2019-04-19 13:39] VITALS: BP 119/53
[2019-04-19 14:44] VITALS: BP 119/53
[2019-04-19] MEDS ORDERED: DELSYM COU30 MG/5 ML PO (15:02)
[2019-04-19] MEDS ORDERED: CHLORPHENIRAMINE4 M1 PO (15:06)
[2019-04-19] MEDS ORDERED: MELATONIN5 MG PO (15:09)
[2019-04-19] MEDS ORDERED: ONDANSETRON ODT8 MG SUBLING (15:10)
== END 2019-04-19 15:45 | disposition home health service (06) | DRG 91 ==
LOC: M.REH 13:46
PROVIDERS: Family Medicine; Internal Medicine; ADMIT Physical Medicine & Rehabilitation
DX: G92 Toxic encephalopathy (principal); J96.21 Acute and chronic respiratory failure with hypoxia; J15.6 Pneumonia due to other Gram-negative bacteria; N17.9 Acute kidney failure, unspecified; B37.81 Candidal esophagitis; I50.22 Chronic systolic (congestive) heart failure; J44.0 Chronic obstructive pulmonary disease with (acute) lower respiratory infection; R13.10 Dysphagia, unspecified; D64.9 Anemia, unspecified; I25.10 Atherosclerotic heart disease of native coronary artery without angina pectoris; F03.90 Unspecified dementia, unspecified severity, without behavioral disturbance, psychotic disturbance, mood disturbance, and anxiety; G89.29 Other chronic pain; M54.9 Dorsalgia, unspecified; F44.4 Conversion disorder with motor symptom or deficit; R53.81 Other malaise; K21.0 Gastro-esophageal reflux disease with esophagitis; R74.0 Nonspecific elevation of levels of transaminase and lactic acid dehydrogenase [LDH]; D72.829 Elevated white blood cell count, unspecified; K80.20 Calculus of gallbladder without cholecystitis without obstruction; Z87.820 Personal history of traumatic brain injury; I25.2 Old myocardial infarction; Z87.440 Personal history of urinary (tract) infections; Z95.5 Presence of coronary angioplasty implant and graft; Z88.0 Allergy status to penicillin; Z88.7 Allergy status to serum and vaccine; Z79.82 Long term (current) use of aspirin; Z79.899 Other long term (current) drug therapy; Z95.810 Presence of automatic (implantable) cardiac defibrillator; Z87.891 Personal history of nicotine dependence

== ENCOUNTER → 2019-08-10 | Outpatient (CLI) | payer MEDICARE, OTHER ==
[~2019-08-10] MED LIST changes: +ACETAMINOPHEN PO; +AMBIEN5 MG PO; +CHLORPHENIRAMINE4 M1 PO; +COLACE100 MG PO; +DELSYM COU30 MG/5 ML PO; +DULCOLAX10 MG RECTAL; +FLEET ENEMA133 ML RECTAL; +MELATONIN5 MG PO; +MILK OF MA400 MG/5 M PO; +MYLANTA MAXIMU355 ML PO; +ONDANSETRON ODT8 MG SUBLING
== END ==
LOC: M.WC 09:00
DX: E11.622 Type 2 diabetes mellitus with other skin ulcer (principal); L89.313 Pressure ulcer of right buttock, stage 3; L89.323 Pressure ulcer of left buttock, stage 3; L98.412 Non-pressure chronic ulcer of buttock with fat layer exposed; E11.51 Type 2 diabetes mellitus with diabetic peripheral angiopathy without gangrene; E11.22 Type 2 diabetes mellitus with diabetic chronic kidney disease; I13.0 Hypertensive heart and chronic kidney disease with heart failure and stage 1 through stage 4 chronic kidney disease, or unspecified chronic kidney disease; I50.9 Heart failure, unspecified; N18.3 Chronic kidney disease, stage 3 (moderate); E78.5 Hyperlipidemia, unspecified; I25.5 Ischemic cardiomyopathy; I25.10 Atherosclerotic heart disease of native coronary artery without angina pectoris; G89.4 Chronic pain syndrome; G25.81 Restless legs syndrome; J44.9 Chronic obstructive pulmonary disease, unspecified; K21.9 Gastro-esophageal reflux disease without esophagitis; M48.00 Spinal stenosis, site unspecified; F41.9 Anxiety disorder, unspecified; F11.20 Opioid dependence, uncomplicated; F32.9 Major depressive disorder, single episode, unspecified; Z85.028 Personal history of other malignant neoplasm of stomach; Z95.0 Presence of cardiac pacemaker; Z87.891 Personal history of nicotine dependence

== ENCOUNTER → 2019-08-24 | Outpatient (CLI) | payer MEDICARE, OTHER | LOC: M.WC 03:52 | DX: E11.622 Type 2 diabetes mellitus with other skin ulcer (principal); L89.313 Pressure ulcer of right buttock, stage 3; L89.322 Pressure ulcer of left buttock, stage 2; L98.411 Non-pressure chronic ulcer of buttock limited to breakdown of skin; R54 Age-related physical debility; E11.22 Type 2 diabetes mellitus with diabetic chronic kidney disease; I13.0 Hypertensive heart and chronic kidney disease with heart failure and stage 1 through stage 4 chronic kidney disease, or unspecified chronic kidney disease; N18.3 Chronic kidney disease, stage 3 (moderate); I50.9 Heart failure, unspecified; E11.51 Type 2 diabetes mellitus with diabetic peripheral angiopathy without gangrene; I25.10 Atherosclerotic heart disease of native coronary artery without angina pectoris; E78.5 Hyperlipidemia, unspecified; K21.9 Gastro-esophageal reflux disease without esophagitis; J44.9 Chronic obstructive pulmonary disease, unspecified; G25.81 Restless legs syndrome; G89.29 Other chronic pain; M48.00 Spinal stenosis, site unspecified; H91.90 Unspecified hearing loss, unspecified ear; F41.9 Anxiety disorder, unspecified; F11.20 Opioid dependence, uncomplicated; F32.9 Major depressive disorder, single episode, unspecified; F40.240 Claustrophobia; Z96.641 Presence of right artificial hip joint; Z87.891 Personal history of nicotine dependence ==

== ENCOUNTER 2019-08-30 15:47 | Inpatient (IN) | payer MEDICARE, OTHER ==
[~2019-08-30] VITALS: Ht 182.9 cm; Wt 97.6 kg
[2019-08-30 15:54] VITALS: BP 98/40
[2019-08-30] MEDS ORDERED: CELEXA 20 MG TA20 MG PO (16:12)
[2019-08-30] MEDS ORDERED: ASA81BEC PO (16:12)
[2019-08-30] MEDS ORDERED: BROVANA15 MCG/2 M INH (16:12)
[2019-08-30] MEDS ORDERED: CENTRUM MEN'S1 EACH PO (16:13)
[2019-08-30] MEDS ORDERED: ALLER-CHLOR4 MG PO (16:14)
[2019-08-30] MEDS ORDERED: POTASSIUM20 PO (16:15)
[2019-08-30] MEDS ORDERED: CARVEDILOL12.5 MG PO (16:15)
[2019-08-30] MEDS ORDERED: COLACE100 MG PO (16:15)
[2019-08-30] MEDS ORDERED: LIPITOR 40 MG T40 M1 PO (16:16)
[2019-08-30] MEDS ORDERED: LASIX 40 MG TAB40 MG PO (16:16)
[2019-08-30] MEDS ORDERED: MIRALAX17 GM PO (16:22)
[2019-08-30] MEDS ORDERED: MAGNESIUM250 M1 PO (16:22)
[2019-08-30] MEDS ORDERED: PLAVIX 75 MG TA75 M1 PO (16:23)
[2019-08-30] MEDS ORDERED: SENNA8.8 MG/5 M PO (16:24)
[2019-08-30] MEDS ORDERED: PULMICORT0.5 MG/2 M INH (16:24)
[2019-08-30] MEDS ORDERED: SYNTHROID125 MC1 PO (16:24)
[2019-08-30] MEDS ORDERED: SINGULAIR 10 MG10 M1 PO (16:24)
[2019-08-30] MEDS ORDERED: GNP NORWEGIAN1 EACH PO (16:25)
[2019-08-30] MEDS ORDERED: FENTANYL 110 MCG/11 IV (16:25)
[2019-08-30 16:46] LABS: ABSOLUTE BASOPHILS 0.1 thou/uL (0.0-0.2); ABSOLUTE EOSINOPHILS 0.2 thou/uL (0.0-0.7); ABSOLUTE LYMPHOCYTES 1.4 thou/uL (0.8-5.3); ABSOLUTE MONOCYTES 0.7 thou/uL (0.0-1.2); ABSOLUTE NEUTROPHILS 3.5 thou/uL (1.6-8.1); EOSINOPHILS 4.2 %; HEMATOCRIT 30.3 % (42.0-52.0); LYMPHOCYTES 23.6 %; MCHC 33.1 g/dL (28.0-37.0); MCV 87.6 fL (80.0-100.0); MONOCYTES 12.6 %; MPV 9.3 fl. (7.2-11.1); NUCLEATED RBCS 0 /100WBC; PLATELET COUNT* 161 thou/uL (150-400); POLYS 58.6 %; RBC 3.46 mil/uL (4.50-6.00); RDW-CV 14.7 % (10.5-14.5); WBC 5.9 thou/uL (4.0-11.0)
[2019-08-30 16:58] LABS: APTT 25.8 Seconds (25.0-31.3); INR 1.1; PROTIME 11.1 Seconds (9.20-11.50)
[2019-08-30 16:59] LABS: CALCIUM 8.2 mg/dL (8.5-10.1); CREATININE 1.7 mg/dL (0.6-1.3); POTASSIUM 4.1 mmol/L (3.5-5.1)
[2019-08-30 17:09] LABS: ALBUMIN 3.3 g/dL (3.4-5.0); TOTAL BILIRUBIN 0.4 mg/dL (<0.1-1.0); TOTAL PROTEIN 7.4 g/dL (6.4-8.2)
[2019-08-30 22:28] VITALS: BP 92/47
[2019-08-31 00:32] VITALS: BP 89/51
[2019-08-31 04:10] VITALS: BP 104/64
--- NOTE | 2019-08-31 05:49 | NUR ---
REPORT RECIEVED FROM ER. PT ORIENTED TO ROOM, CALL LIGHT SHOWN, FALL AGREEMENT WENT OVER, PT STATED UNDERSTANDING. ADMISSION DOCUMENTED. IV PATENT, ABX INFUSED. PT REPORTED PAIN, DR NOTIFIED, ORDERS RECIEVED. PT SLEEPING WHEN RECHECKED. COVID TEST OBTAINED, ISOLATION MAINTAINED. WILL CONTINUE WITH PLAN OF CARE.
[2019-08-31 08:00] VITALS: BP 135/70
[2019-08-31] MEDS ORDERED: DILAUDID1 MG/1 M1 PO (10:41)
--- NOTE | 2019-08-31 10:53 | NUR ---
Nutrition: screen for wound on coccyx, noted as red/healing, not staged. Noted pt wt up significantly from prior admits. Dx: CHF. Lasix and other meds reviewed. BUN 29, albumin 3.3, CO2 35. Nsg reported that pt did well with breakfast, no concerns. Assess at low nutrition risk. Rec consider adding low-Na diet restrictions if approrpaite.
[2019-08-31 13:15] VITALS: BP 150/77
--- NOTE | 2019-08-31 13:18 | NUR ---
PT OFF UNIT TO CT.
--- NOTE | 2019-08-31 14:12 | NUR ---
PT RETURN TO UNIT.
--- NOTE | 2019-08-31 14:55 | NUR ---
WOUND NURSE: PATIENT SEEN TO ADDRESS SKIN LESIONS ON BILATERAL BUTTOCKS. PRESENTS A 1.0 X 1.0 X 0.1 CM SUPERFICIAL LESION ON BILATERAL BUTTOCKS. THERE IS PINK NONGRANULATING TISSUE IN EACH WOUND BED AND SCANT SEROUS DRAINAGE. CLEANSED WITH WOUND CLEANSER & GAUZE. APPLIED PHYTOPLEX AF TO AFFECTED AREA. PLAN TO REPEAT Q SHIFT UNTIL HEALED. PATIENT INSTRUCTED TO REPOSITON EVERY 2 HOURS TO OFFLOAD WOUND AND PROMOTE HEALING. PATIENT STATES HE UNDERSTANDS. PATIENT REPORTS HE HAS HAD THESE WOUNDS FROM SITTING UP TOO MUCH AT HOME. PATIENT SEEN IN WOUND CENTER AND THESE WOUNDS ARE DOCUMENTED THERE OCCURRING ON 08/01/19.
--- NOTE | 2019-08-31 15:14 | NUR ---
PT C/O OF CHEST PAIN ALL OVER CHEST WAS 11/29. CONTACT DR. DARIEL TAY INSTRUCTED TO GET STAT EKG AND TROPONINS, NITRO. CALLED [facility] TO ASSESS PT. RETURN TO PT'S ROOM AND CHEST PAIN HAS RESOLVED. WILL OBTAIN EKG AND TROPONINS AND CONTINUE TO ASSESS.
--- NOTE | 2019-08-31 15:57 | EKG ---
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1945 Requested By: Kisha Negron Order Number: [id number] MD: Neel Quiros Measurements Intervals [place] Rate: 70 P: 211 ND: 104 QRS: -89 QRSD: 187 T: -11 QT: 486 QTc: 525 Interpretive Statements Sinus rhythm Long ND interval Right bundle branch block Inferolateral infarct, old Compared to ECG 03/26/2019 13:38:04 Right bundle-branch block now present Sinus rhythm no longer present T-wave abnormality no longer present Myocardial infarct finding still present Electronically Signed On 08-31-2019 15:56:15 CDT by Neel Quiros [email or web address] <ELECTRONICALLY SIGNED> By: Neel Quiros MD, [facility] 08/31/19 1556 1622 1622 Neel Quiros MD, [facility] /EPI
[2019-08-31 17:34] VITALS: BP 146/66
--- NOTE | 2019-08-31 17:51 | 2DMMODE ---
[place] [address] 2 D/M-MODE ECHOCARDIOGRAM Name: TONY TONYE Room: [address] IN .R.#: [id number] Admission: 08/30/19 Attend Phys: Dl Schmitz Discharge: Date of : 45 Date of Service: 08/31/19 1750 Report #: [id number] THIS REPORT FOR: cc: Neel Tariq John E. DO Liston, Michael J. MD [facility] ~ APPROVED REPORT Study performed: 08/31/2019 16:17:49 EXAM: Comprehensive 2D, Doppler, and color-flow Echocardiogram Patient Location: In-Patient BSA: 2.20 HR: 69 bpm BP: 150/77 mmHg Other Information Study Quality: Fair Technically limited study due to inability to position patient. Indications Congestive Heart Failure Dyspnea Pacemaker 2D Dimensions IVSd: 12.55 (7-11mm) LVOT Diam: 18.39 (18-24mm) LVDd: 58.68 mm PWd: 11.92 (7-11mm) Ascending Ao: 36.12 (22-36mm) LVDs: 47.80 (25-40mm) Aortic Root: 31.96 mm Volumes Left Atrial Volume (Systole) LA ESV Index: 32.90 mL/m2 Aortic Valve AoV Peak Watson.: 1.00 m/s AO Peak Gr.: 3.98 mmHg LVOT Max P.90 mmHg AO Mean Gr.: 2.40 mmHg LVOT Mean P.82 mmHg LVOT Max V: 0.69 m/s AO V2 VTI: 18.74 cm LVOT Mean V: 0.41 m/[place] [address] 2 D/M-MODE ECHOCARDIOGRAM Name: TONY TONEY Room: [address]#: [id number] Admission: 08/30/19 Attend Phys: Dl Schmitz Discharge: Date of : 45 Date of Service: 08/31/19 1750 Report #: [id number] ANGELA (VTI): 1.94 cm2 LVOT V1 VTI: 13.71 cm Mitral Valve MV Decel. Time: 135.49 ms MV PHT: 39.29 ms MVA (PHT): 5.60 cm2 TDI Medial E' Watson.: 0.09 m/s Lateral E' Watson.: 0.12 m/s Pulmonary Valve PV Peak Watson.: 0.71 m/s PV Peak Gr.: 2.01 mmHg Tricuspid Valve RAP Estimate: 20.00 mmHg TR Peak Gr.: 29.18 mmHg RVSP: 49.18 mmHg PA Pressure: 49.18 mmHg Left Ventricle Left ventricle is mildly dilated. The basal inferior and inferior wall appear akinetic. There is global hypokinesis. Additionally there appears to be some left ventricular dyssynergy due to underlying bundle branch block. Mild concentric left ventricular hypertrophy. Left ventricular ejection fraction is moderate to severely decreased. LVEF is 30-35%. Transmitral Doppler flow pattern suggests restrictive physiology. Right Ventricle Right ventricle is mildly dilated. The right ventricular systolic function is normal. Device lead is present in the right ventricle. Atria The left atrium size is normal. The right atrium size is normal. Aortic Valve The Aortic valve is sclerotic. No aortic regurgitation is present. There is no aortic valvular stenosis. Mitral Valve There is mitral annular calcification. Trace mitral regurgitation. No evidence of mitral valve stenosis. Tricuspid Valve The tricuspid valve is normal in structure. [place] [address] 2 D/M-MODE ECHOCARDIOGRAM Name: TONY TONEY Room: [address]#: [id number] Admission: 08/30/19 Attend Phys: Dl Schmitz Discharge: Date of : 45 Date of Service: 08/31/19 1750 Report #: [id number] regurgitation. The RVSP is 35-40 mmHg. Pulmonic Valve The pulmonary valve is normal in structure. There is no pulmonic valvular regurgitation. Great Vessels The aortic root is normal in size. IVC is not well visualized. Pericardium Trace pericardial effusion. <Conclusion> Left ventricle is mildly dilated. Mild concentric left ventricular hypertrophy. Left ventricular ejection fraction is moderate to severely decreased. LVEF is 30-35%. Transmitral Doppler flow pattern suggests restrictive physiology. The basal inferior and inferior wall appear akinetic. There is global hypokinesis. Additionally there appears to be some left ventricular dyssynergy due to underlying bundle branch block. Right ventricle is mildly dilated. Trace mitral regurgitation. Mild tricuspid regurgitation. The RVSP is 35-40 mmHg. Trace pericardial effusion. <ELECTRONICALLY SIGNED> By: Dallas Moon MD, FACC 08/31/191749 49 49 Dallas Moon MD, FACC /INF
[2019-08-31 20:22] VITALS: BP 133/65
[2019-09-01] VITALS (7 sets, daily range): BP systolic 122–164; BP diastolic 62–80
[2019-09-01 05:10] LABS: CREATININE 1.4 mg/dL (0.6-1.3); POTASSIUM 3.7 mmol/L (3.5-5.1)
--- NOTE | 2019-09-01 05:27 | NUR ---
PT AWAKE MOST OF SHIFT. ASSESSMENT DOCUMENTED. MEDS GIVEN PER E-MAR. IV PATENT, ABX INFUSED. PT ASKING FOR VOLTARAN GEL THIS SHIFT, NOTIFIED, ORDERS RECIEVED. PT REFUSED REPOSITIONS THIS SHIFT. PAIN MEDS GIVEN PER E-MAR WITH SOME RELIEF. WILL CONTINUE WITH PLAN OF CARE.
--- NOTE | 2019-09-01 07:18 | NUR ---
PT COMPLAINING OF INCREASED SOA AND BURNING SENSATION IN HIS CHEST, VS OBTAINED, DR NOTIFIED, ORDERS FOR GI COCKTAIL RECIEVED. PT UNABLE TO DRINK ALL OF GI COCKTAIL. WILL GIVE REPORT TO ONCOMING RN.
[2019-09-01] MEDS ORDERED: NEURONTIN 300M300 M2 PO (12:23)
--- NOTE | 2019-09-01 19:12 | NUR ---
PT.LIVES WITH . HAS CANE,WC,WALKER,COMMODE,GRAB BARS AND O2 AT HOME. ASSISTS HIM NEEDED. HAS HX OF [facility]. PT.NOT VERY FORTH COMING WITH INFORMATION . UNABLE TO REACH ON PHONE. LEFT TO CALL CM ON WEDNESDAY.
--- NOTE | 2019-09-01 20:31 | NUR ---
PT. VSS, SR ON MONITOR, AOX4, RECEIVED PRN PAIN MEDS THROUGHOUT SHIFT. REFUSED Q2 TURNS TO OFFLOAD WEIGHT OFF BUTTOCKS STAGE 2 WOUNDS. PT. EDUCATED ON PRESSURE SORES AND VERBALIZED UNDERSTANDING OF POTENTIAL COMPLICATIONS. ADMISSION MED REC UPDATED TO INCLUDE GABAPENTIN WHICH PT TAKES AT HOME. IV ANTIBIOTICS ADMINISTERED WITHOUT COMPLICATIONS. PT. VOIDS PER URINAL IN BED. PT. UP WITH WALKER PER PT. DIFFICULTY TOLERATING WITH PAIN. CALL LIGHT AND PERSONAL BELONGINGS PLACED WITHIN REACH. HOURLY ROUNDING PERFORMED. PT. IN MED, WATCHING TV, IN NO APPARENT DISTRESS AT THE TIME OF SHIFT CHANGE.
[2019-09-02] VITALS: BP 114/52
[2019-09-02 04:00] VITALS: BP 121/62
[2019-09-02 04:36] LABS: CALCIUM 8.3 mg/dL (8.5-10.1); CREATININE 1.3 mg/dL (0.6-1.3); POTASSIUM 3.3 mmol/L (3.5-5.1)
--- NOTE | 2019-09-02 06:57 | NUR ---
Pt's pain has been better controlled compared with day shift, but has required repeated analgesia. Dilaudid 4mg PO was administered x2 and morphine 2mg IVP was administered x2 for breakthrough. Pt is aox4, a-paced on telemetry, lungs are coarse on auscultation, respirations are even and unlabored on 5L NC. Pt has been refusing regular turns, but has been otherwise cooperative. Pt is medically stable at this time.
[2019-09-02 07:30] VITALS: BP 122/62
[2019-09-02 12:03] VITALS: BP 101/48
[2019-09-02 17:08] VITALS: BP 142/43
--- NOTE | 2019-09-02 19:54 | NUR ---
RECEIVED REPORT FROM BRENDA VAIL. ASSUMED CARE OF PT AROUND 0725. PT A&O X4, FORGETFUL AT TIMES. AM ASSESSMENT AND VITAL COMPLETED CHARTED. MEDS PER EMAR. PT ABLE TO SIT UP IN BEDSIDE CHAIR THIS SHIFT. O2 PER NC TITRATED FROM 5L DOWN TO 4L, PT TOLERATING. PT HOPEFULL TO GO HOME TOMORROW. FLUID RESTRICITON MAINTAINED. PT CURRENTLY WATCHIN TV IN BEDSIDE CHAIR. CALL LIGHT IS WITHIN REACH. HOURLY ROUNDING PERFORMED. FALL PRECAUTIONS IN PLACE.
[2019-09-02 20:00] VITALS: BP 111/54
[2019-09-03] VITALS: BP 130/70
[2019-09-03 04:00] VITALS: BP 126/68
--- NOTE | 2019-09-03 06:49 | NUR ---
Shift uneventful. Pt is aox4, a-paced on telemetry. Respirations are shallow, but unlabored. Lungs are diminished with expiratory wheezes on ausculation. Oxygen saturation has maintained at 92% on 3L NC throughout night. Pt is medically stable at this time.
[2019-09-03 08:38] VITALS: BP 126/58
[2019-09-03 12:22] VITALS: BP 99/59
== END 2019-09-03 14:55 | disposition home health service (06) | DRG 602 ==
LOC: M.ERS 15:47 → M.2W 18:23 → M.TBA-ER 18:23 → M.2W 22:45
PROVIDERS: Nurse Practitioner Family; Registered Nurse; ADMIT Internal Medicine; ATTEND Internal Medicine
PROC: 05HG33Z Insertion of Infusion Device into Right Hand Vein, Percutaneous Approach (ICD-10-PCS; principal; 2019-08-30)
DX: L03.115 Cellulitis of right lower limb (principal); N17.0 Acute kidney failure with tubular necrosis; J96.21 Acute and chronic respiratory failure with hypoxia; I50.43 Acute on chronic combined systolic (congestive) and diastolic (congestive) heart failure; I11.0 Hypertensive heart disease with heart failure; I25.10 Atherosclerotic heart disease of native coronary artery without angina pectoris; J44.9 Chronic obstructive pulmonary disease, unspecified; L89.159 Pressure ulcer of sacral region, unspecified stage; F03.90 Unspecified dementia, unspecified severity, without behavioral disturbance, psychotic disturbance, mood disturbance, and anxiety; K59.00 Constipation, unspecified; T50.2X5A Adverse effect of carbonic-anhydrase inhibitors, benzothiadiazides and other diuretics, initial encounter; G89.29 Other chronic pain; M54.9 Dorsalgia, unspecified; Z20.828 Contact with and (suspected) exposure to other viral communicable diseases; Y92.89 Other specified places as the place of occurrence of the external cause; I25.2 Old myocardial infarction; Z99.81 Dependence on supplemental oxygen; Z87.01 Personal history of pneumonia (recurrent); Z95.5 Presence of coronary angioplasty implant and graft; Z79.82 Long term (current) use of aspirin; Z79.899 Other long term (current) drug therapy; Z88.1 Allergy status to other antibiotic agents; Z88.0 Allergy status to penicillin; Z79.01 Long term (current) use of anticoagulants; Z95.810 Presence of automatic (implantable) cardiac defibrillator

== ENCOUNTER 2019-10-05 11:02 | Inpatient (IN) | payer MEDICARE, OTHER ==
[~2019-10-05] VITALS: Ht 182.9 cm; Wt 94.4 kg
--- NOTE | ~2019-10-05 | CON ---
[address] [address] CONSULTATION Name: TONY TONEY Room: [address] IN M.R.#: [id number] Admission: 10/05/19 Attend Phys: Melani Saucedo MD Discharge: Date of : 45 Report #: [id number] THIS REPORT FOR: //name// cc: Neel Tariq John E. DO ~ THIS REPORT FOR: //name// CC: Neel Saucedo DATE OF SERVICE: 10/06/2019 CONSULTING PHYSICIAN: Dr. Saucedo. REASON FOR CONSULTATION: Acute kidney injury. HISTORY OF PRESENT ILLNESS: A 74-year-old gentleman with no preexisting history of kidney disease, who comes in with shortness of breath and cough along with increasing lower extremity edema. He has been very adherent to 1 liter per day fluid restriction of 1.5 gram per day sodium dietary restriction and has been elevating his legs, but despite this, he has had increasing swelling. He has been seen by Cardiology who feels he has acute on chronic congestive heart failure. His creatinine in March was 0.9, in August it was 1.3, now it is 2.2. He has some IV diuretic ordered. He denies any regular NSAID use. Denies any new urinary complaints. Overall, he is comfortable. REVIEW OF SYSTEMS: Constitutional, psych, heme, eyes, ENT, respiratory, cardiac, GI, , endocrine, all negative except as documented above. PAST MEDICAL HISTORY: Coronary artery disease, history of permanent pacemaker, COPD, congestive heart failure with 08/2019 echo showing an ejection fraction of 30-35%, hypothyroidism, chronic back pain. FAMILY HISTORY: Not pertinent in this 74-year-old gentleman. SOCIAL HISTORY: No longer smoking. CURRENT MEDICATIONS: Reviewed. PHYSICAL EXAMINATION: VITAL SIGNS: Blood pressure 100/62, pulse 71, respirations 21, temperature 36.6. GENERAL: No acute distress. EYES: Open. EARS: Externally normal. NECK: [place] [address] CONSULTATION Name: TONY TONEY Room: [address] IN ..#: [id number] Admission: 10/05/19 Attend Phys: Melani Saucedo MD Discharge: Date of : 45 Report #: [id number] CARDIOVASCULAR: Regular rate. LUNGS: Diminished breath sounds. ABDOMEN: Soft. MUSCULOSKELETAL: Nontender. Positive edema. PSYCHIATRIC: Awake, alert. LABORATORY DATA: White cell count 6.4, hemoglobin 9.7, platelets 150. Sodium 141, potassium 4.3, chloride 103, bicarbonate 33, BUN 35, creatinine 2.2, glucose 78, calcium 8.2, magnesium 2.6, albumin 3.2. ASSESSMENT: 1. Acute kidney injury with in 03/2019 creatinine of 0.9, on 09/02/2019 creatinine of 1.3 and a creatinine on 10/06/2019 of 2.2. This is in the setting of suspected cardiorenal syndrome. On 08/30/2019, EF was 30-35% with RVSP of 35-40. Kidney ultrasound shows left kidney of 11.5 cm and right kidney of 8.6 cm without any acute findings. 2. Coronary artery disease. 3. Decompensated congestive heart failure. 4. Permanent pacemaker. 5. Chronic obstructive pulmonary disease. 6. Hypothyroidism. 7. Edema. PLAN: 1. Lasix has been ordered. He is at risk for worsening kidney function. I discussed with him the possibility that he may require ultrafiltration if he is not responding to diuresis versus continued medical management. He is now DNR. Cardiology is following. 2. Check UA. 3. Check labs again in the a.m. We will follow along with you. Thank you for requesting my opinion in the care and management of this patient. By: 1614 [id number] Love MD /nt
[~2019-10-05 11:02] MED LIST changes: +ALLER-CHLOR4 MG PO; +ASA81BEC PO; +CENTRUM MEN'S1 EACH PO; +DILAUDID1 MG/1 M1 PO; +FENTANYL 110 MCG/11 IV; +GNP NORWEGIAN1 EACH PO; +LASIX 40 MG TAB40 MG PO; +LIPITOR 40 MG T40 M1 PO; +MAGNESIUM250 M1 PO; +NEURONTIN 300M300 M2 PO; +POTASSIUM20 PO; +SENNA8.8 MG/5 M PO; +SYNTHROID125 MC1 PO
[2019-10-05 11:11] VITALS: BP 105/70
[2019-10-05 11:52] LABS: ABSOLUTE EOSINOPHILS 0.2 thou/uL (0.0-0.7); ABSOLUTE MONOCYTES 0.7 thou/uL (0.0-1.2); ABSOLUTE NEUTROPHILS 4.1 thou/uL (1.6-8.1); BASOPHILS 0.6 %; EOSINOPHILS 3.2 %; HEMATOCRIT 29.2 % (42.0-52.0); HEMOGLOBIN 9.5 gm/dL (14.0-18.0); LYMPHOCYTES 15.9 %; MCHC 32.5 g/dL (28.0-37.0); MCV 86.2 fL (80.0-100.0); MONOCYTES 11.4 %; MPV 8.9 fl. (7.2-11.1); NUCLEATED RBCS 0 /100WBC; PLATELET COUNT* 176 thou/uL (150-400); POLYS 68.9 %; RBC 3.39 mil/uL (4.50-6.00); RDW-CV 16.2 % (10.5-14.5)
[2019-10-05 12:05] LABS: CALCIUM 7.9 mg/dL (8.5-10.1); CREATININE 2.3 mg/dL (0.6-1.3); POTASSIUM 4.9 mmol/L (3.5-5.1)
[2019-10-05 12:06] LABS: APTT 27.8 Seconds (25.0-31.3); INR 1.1; PROTIME 11.7 Seconds (9.20-11.50)
[2019-10-05 12:16] LABS: ALBUMIN 3.3 g/dL (3.4-5.0); TOTAL BILIRUBIN 0.5 mg/dL (<0.1-1.0)
[2019-10-05 16:40] VITALS: BP 98/68
--- NOTE | 2019-10-05 16:54 | EKG ---
[place] [address] ELECTROCARDIOGRAM REPORT Name: TONY TONEY Room: [place] [address] ADM IN [facility].#: [id number] Admission: 10/05/19 Attend Phys: Melani Saucedo, Discharge: Date of : 45 Date of Service: 10/05/19 1151 Report #: [id number] THIS REPORT FOR: //name// [facility] ED Test Date: 2019-10-05 Test Time: 11:51:29 Pat Name: TONY TONEY Department: Room: 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1945 Requested By: Lindy Hoyos Order Number: [id number] MD: Tony Dockery Measurements Intervals [place] Rate: 133 P: MD: QRS: 96 QRSD: 212 T: 67 QT: 443 QTc: 660 Interpretive Statements sinus rhythm with first degree av block Nonspecific intraventricular conduction delay artifact noted Baseline wander in lead(s) II,III,aVR,aVL,aVF,V1,V2,V3,V4,V5,V6 Compared to ECG 08/30/2019 16:22:40 artifact noted Electronically Signed On 10-05-2019 16:54:14 CDT by Tony Dockery [email or web address] <ELECTRONICALLY SIGNED> By: Tony Dockery MD, [facility] 10/05/19 1654 1151 1151 Tony Dockery MD, [facility] /EPI
[2019-10-05 18:17] VITALS: BP 99/59
[2019-10-05 20:10] VITALS: BP 134/74
[2019-10-06] VITALS (7 sets, daily range): BP systolic 97–110; BP diastolic 46–74
[2019-10-06 05:06] LABS: HEMATOCRIT 29.1 % (42.0-52.0); HEMOGLOBIN 9.7 gm/dL (14.0-18.0); MCH 28.5 pg (26.0-34.0); MCHC 33.3 g/dL (28.0-37.0); MCV 85.5 fL (80.0-100.0); RBC 3.41 mil/uL (4.50-6.00); RDW-CV 16.4 % (10.5-14.5); WBC 6.4 thou/uL (4.0-11.0)
[2019-10-06 05:54] LABS: ALBUMIN 3.2 g/dL (3.4-5.0); CALCIUM 8.2 mg/dL (8.5-10.1); CREATININE 2.2 mg/dL (0.6-1.3); POTASSIUM 4.3 mmol/L (3.5-5.1); TOTAL BILIRUBIN 0.5 mg/dL (<0.1-1.0); TOTAL PROTEIN 6.3 g/dL (6.4-8.2)
[2019-10-06 06:08] LABS: MAGNESIUM 2.6 mg/dL (1.8-2.4)
--- NOTE | 2019-10-06 14:43 | CON ---
[address] [address] CONSULTATION Name: TONY TONEY Room: [address] IN M.R.#: [id number] Admission: 10/05/19 Attend Phys: Melani Saucedo MD Discharge: Date of : 45 Report #: [id number] THIS REPORT FOR: //name// cc: Neel Tariq John E. DO THIS REPORT FOR: //name// CC: Neel Ty DATE OF SERVICE: 10/06/2019 CARDIOLOGY CONSULTATION HISTORY OF PRESENT ILLNESS: The patient is a 74-year-old white male who I was asked to see in the hospital today after he was noted to have swelling of both feet. The patient has an extensive and complicated past medical history. Unfortunately, most of his care has not been done here at [facility]. He apparently had presented in 2004 with diaphoresis to [facility]. He was told he had a myocardial infarction and 2 coronary stents placed. He also has a history of PAD and has had stents placed in his left leg in the past. He is not very active because of chronic back pain. He has had apparently 5 back surgery and hip operation. He currently has a pain pump in place. Several years ago because of his cardiomyopathy, he had a defibrillator inserted at [facility]. Apparently, the defibrillator has never shocked his heart. He was told in the past he has an ejection fraction of 30-35%. The patient was actually admitted here to [facility] in March with confusion. He developed acute kidney injury. He was eventually discharged. He was here in August of this year with lower extremity edema. He was diuresed. He was felt to have cellulitis. He was discharged with home health nurse. Recently, however, he has had swelling of both his legs. He denied any increase in leg pain. He denied any chest pain, shortness of breath, palpitations, syncope, fever or cough. Home health nurse recommended he be admitted yesterday for further evaluation and treatment. PAST MEDICAL HISTORY: Otherwise significant for chronic kidney disease. There is no history of diabetes. CURRENT MEDICATIONS: Consist of aspirin, Celexa, carvedilol, Lasix, potassium, Lipitor, Plavix, Pulmicort, Singulair, Synthroid, he has a pain pump, Neurontin. ALLERGIES: HE HAS A PREVIOUS INTOLERANCE TO PENICILLIN. SOCIAL HISTORY: He is . 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 Used to smoke a pack of cigarettes a day, but quit [address] [place] [address] CONSULTATION Name: TONY TONEY Room: [address] IN M.R.#: [id number] Admission: 10/05/19 Attend Phys: Melani Saucedo MD Discharge: Date of : 45 Report #: [id number] years ago. No alcohol abuse. REVIEW OF SYSTEMS: No history of stroke. He has had carotid Doppler study in the past. He has COPD, is on chronic oxygen and has nebulizer at home. No liver disease. He has chronic kidney disease, saw a chief technician in the past. No cancer. No chronic skin condition. No psychiatric illness. PHYSICAL EXAMINATION: GENERAL: Revealed an elderly male, lying in bed, appeared in no distress. VITAL SIGNS: He had a blood pressure of 100/60, pulse 70, he is afebrile. HEENT: He was anicteric. Conjunctivae are pink. Mucous membranes moist. NECK: Veins do not appear distended. No carotid bruits. CHEST: Clear to auscultation. CARDIOVASCULAR: Regular rate and rhythm. ABDOMEN: Soft. EXTREMITIES: Had pitting edema up to the knees. SKIN: Warm and dry. NEUROLOGIC: Nonfocal. His monitor shows the patient is ventricular paced. His workup, he had an echocardiogram in August when he was here that showed dilated left ventricle, ejection fraction of 30-35%, inferior akinesia. Trace pericardial effusion. His x-rays, he had a portable chest x-ray yesterday that showed chronic interstitial lung disease, normal heart size, no effusions. He had a CT scan of the chest in August using a PE protocol because of shortness of breath that showed no pulmonary embolus, chronic lung changes, atelectasis, cardiomegaly, nerve stimulator in place. LABORATORY DATA: Sodium 141, potassium 4.3, BUN of 35, his creatinine is 2.2. His liver function studies were normal. BNP 7899. Troponin 0.06. T4 of 1.2. White blood cell count 6.4, hemoglobin 9.7 and it was 8.9 a year ago. IMPRESSION AND RECOMMENDATIONS: 1. Acute on chronic systolic heart failure. The patient is on a beta verónica. I would not recommend Aldactone due to his chronic kidney disease. Since the patient is not on an YEIMY inhibitor nor ARB, I would consider adding nitrates and hydralazine. Recommend IV Lasix. 2. Coronary artery disease. Previous stent. No recent angina. 3. Previous implantation of defibrillator. 4. Chronic back pain. The patient has a nerve stimulator in place. 5. Chronic obstructive pulmonary disease. The patient on chronic oxygen. 6. Previous tobacco abuse. <ELECTRONICALLY SIGNED> By: Tony Dockery MD, [facility] 10/06/19 1443 1341 [id number] Fe Dockery MD, [facility]IS /nt
--- NOTE | 2019-10-06 17:29 | EKG ---
[place] [address] ELECTROCARDIOGRAM REPORT Name: TONY TONEY Room: [address] IN .R.#: [id number] Admission: 10/05/19 Attend Phys: Melani Saucedo, Discharge: Date of : 45 Date of Service: 10/06/19 1450 Report #: [id number] THIS REPORT FOR: //name// [facility] Test Date: 2019-10-06 Test Time: 14:50:40 Pat Name: TONY DAWNA Department: Room: [address] Gender: M [employer] Member: : 1945 Requested By: Aaliyah Villaseñor Order Number: [id number] Lizbeth MD: Tony Dockery Measurements Intervals [place] Rate: 71 P: MD: QRS: -127 QRSD: 210 T: 14 QT: 542 QTc: 590 Interpretive Statements atrial paced and ventricular sensed rhythm first degree av block Right bundle branch block Compared to ECG 10/05/2019 11:51:29 artifact no longer seen Electronically Signed On 10-06-2019 17:29:06 CDT by Tony Dockery [email or web address] <ELECTRONICALLY SIGNED> By: Tony Dockery MD, FAC 10/06/19 1729 1450 1450 Tony Dockery MD, [facility] /EPI
[2019-10-07] VITALS: BP 106/62
[2019-10-07 04:33] VITALS: BP 110/53
[2019-10-07 05:41] LABS: CALCIUM 8.6 mg/dL (8.5-10.1); CREATININE 1.7 mg/dL (0.6-1.3); MAGNESIUM 2.7 mg/dL (1.8-2.4); POTASSIUM 4.2 mmol/L (3.5-5.1)
[2019-10-07 05:43] LABS: ALBUMIN 3.4 g/dL (3.4-5.0); CALCIUM 8.4 mg/dL (8.5-10.1); CREATININE 1.7 mg/dL (0.6-1.3); PHOSPHORUS* 3.4 mg/dL (2.5-4.9); POTASSIUM 4.3 mmol/L (3.5-5.1)
[2019-10-07 08:00] VITALS: BP 118/73
[2019-10-07 12:30] LABS: URINE BILIRUBIN NEGATIVE (Negative); URINE BLOOD NEGATIVE (Negative); URINE CLARITY CLEAR; URINE COLOR YELLOW; URINE GLUCOSE-RANDOM NEGATIVE (Negative); URINE KETONES NEGATIVE (Negative); URINE LEUKOCYTES NEGATIVE (Negative); URINE NITRITE NEGATIVE (Negative); URINE PROTEIN NEGATIVE (Negative); URINE SPECIFIC GRAVITY 1.015 (1.005-1.030); URINE UROBILINOGEN 0.2 E.U./dl (0.2-1.0)
[2019-10-07 13:34] VITALS: BP 130/73
[2019-10-07 17:41] VITALS: BP 134/77
[2019-10-07 20:00] VITALS: BP 116/65
[2019-10-08 00:42] VITALS: BP 115/58
[2019-10-08 04:00] VITALS: BP 131/70
[2019-10-08 06:09] LABS: CALCIUM 8.2 mg/dL (8.5-10.1); CREATININE 1.5 mg/dL (0.6-1.3); MAGNESIUM 2.1 mg/dL (1.8-2.4); POTASSIUM 3.8 mmol/L (3.5-5.1)
[2019-10-08 08:00] VITALS: BP 135/70
[2019-10-08] MEDS ORDERED: LASIX 40 MG TAB40 MG PO (09:30)
== END 2019-10-08 12:15 | disposition home health service (06) | DRG 291 ==
LOC: M.ERS 11:02 → M.2W 14:12 → M.TBA-ER 14:12 → M.2W 16:59
PROVIDERS: Internal Medicine; Internal Medicine Nephrology; Personal Emergency Response Attendant; ADMIT Internal Medicine; ATTEND Internal Medicine
DX: I13.0 Hypertensive heart and chronic kidney disease with heart failure and stage 1 through stage 4 chronic kidney disease, or unspecified chronic kidney disease (principal); I50.23 Acute on chronic systolic (congestive) heart failure; J96.21 Acute and chronic respiratory failure with hypoxia; N17.0 Acute kidney failure with tubular necrosis; I42.9 Cardiomyopathy, unspecified; J44.9 Chronic obstructive pulmonary disease, unspecified; N18.9 Chronic kidney disease, unspecified; I25.10 Atherosclerotic heart disease of native coronary artery without angina pectoris; F03.90 Unspecified dementia, unspecified severity, without behavioral disturbance, psychotic disturbance, mood disturbance, and anxiety; I73.9 Peripheral vascular disease, unspecified; Z66 Do not resuscitate; G89.29 Other chronic pain; E03.9 Hypothyroidism, unspecified; D63.8 Anemia in other chronic diseases classified elsewhere; Z20.828 Contact with and (suspected) exposure to other viral communicable diseases; M54.9 Dorsalgia, unspecified; Z87.440 Personal history of urinary (tract) infections; Z95.5 Presence of coronary angioplasty implant and graft; Z79.899 Other long term (current) drug therapy; I25.2 Old myocardial infarction; Z79.82 Long term (current) use of aspirin; Z88.0 Allergy status to penicillin; Z95.9 Presence of cardiac and vascular implant and graft, unspecified; Z95.810 Presence of automatic (implantable) cardiac defibrillator

== ENCOUNTER 2019-10-17 10:14 | Inpatient (IN) | payer MEDICARE, OTHER ==
[~2019-10-17] VITALS: Ht 182.9 cm; Wt 98.0 kg
[2019-10-17 10:19] VITALS: BP 146/119
[2019-10-17 11:13] LABS: BE -0.1 mmol/L (-2 to +3); PCO2 47.9 mmHg (35.0-45.0); PO2 105.1 mmHg (75.0-100.0); pH 7.349 (7.340-7.450)
[2019-10-17 11:14] LABS: ABSOLUTE BASOPHILS 0.1 thou/uL (0.0-0.2); ABSOLUTE EOSINOPHILS 0.1 thou/uL (0.0-0.7); BASOPHILS 1.1 %; EOSINOPHILS 0.8 %; HEMATOCRIT 29.6 % (42.0-52.0); HEMOGLOBIN 9.7 gm/dL (14.0-18.0); LYMPHOCYTES 10.8 %; MCH 28.3 pg (26.0-34.0); MCHC 32.7 g/dL (28.0-37.0); MCV 86.5 fL (80.0-100.0); MONOCYTES 10.9 %; MPV 8.3 fl. (7.2-11.1); NUCLEATED RBCS 0 /100WBC; PLATELET COUNT* 172 thou/uL (150-400); POLYS 76.4 %; RBC 3.42 mil/uL (4.50-6.00); WBC 9.1 thou/uL (4.0-11.0)
[2019-10-17 11:21] LABS: INR 1.2
[2019-10-17 11:22] LABS: CALCIUM 8.1 mg/dL (8.5-10.1); CREATININE 3.6 mg/dL (0.6-1.3)
[2019-10-17 11:23] LABS: POTASSIUM 6.4 mmol/L (3.5-5.1)
[2019-10-17 11:32] LABS: ALBUMIN 3.3 g/dL (3.4-5.0); MAGNESIUM 2.9 mg/dL (1.8-2.4); TOTAL BILIRUBIN 0.6 mg/dL (<0.1-1.0); TOTAL PROTEIN 7.1 g/dL (6.4-8.2)
[2019-10-17 13:19] VITALS: BP 94/56
[2019-10-17 13:35] VITALS: BP 102/54
[2019-10-17 17:38] VITALS: BP 109/55
--- NOTE | 2019-10-17 19:31 | NUR ---
PT ADMITTED TO ROOM 213 BY CART FROM ED AT APPROX 1330, PT ADMITTED W/ SHORTNESS OF BREATH AND CURRENTLY ON 8L NC, SAT MID 90'S. PT HAS INTERNAL PAIN PUMP AND HAS C/O BACK PAIN, TREATED W/ PRN DILAUDID. PT CURRENTLY HAS NS BOLUS RUNNING AND IN ROOM, APPROVED TO SPEND THE NIGHT HERE W/ PT. NEPHRO AND CARDIOLOGY CONSULTED, CARDS CAME TO SEE PT, SEE NOTES. PT ORIENTED TO ROOM AND CALL LIGHT, ADMISSION ASSESSMENT AND HX COMPLETED CHARTED, SEPSIS SCREENING COMPLETED, NEGATIVE. PT UP W/ 1 AND A WALKER AND GAIT BELT BUT DOESN'T GET UP VERY OFTEN AND HAS BUTTOCKS WOUND SO PT BEING TURNED Q2H. MEDS PER MAY, HOURLY ROUNDING OBSERVED, FALL PRECAUTIONS IN PLACE, CALL LIGHT W/IN REACH, WILL CONTINUE POC.
[2019-10-17 19:58] LABS: URINE BILIRUBIN NEGATIVE (Negative); URINE BLOOD NEGATIVE (Negative); URINE CLARITY CLEAR; URINE COLOR YELLOW; URINE GLUCOSE-RANDOM NEGATIVE (Negative); URINE KETONES NEGATIVE (Negative); URINE LEUKOCYTES-REFLEX NEGATIVE (Negative); URINE NITRITE-REFLEX NEGATIVE (Negative); URINE PROTEIN TRACE (Negative); URINE UROBILINOGEN 0.2 E.U./dl (0.2-1.0)
[2019-10-17 20:40] VITALS: BP 115/41
[2019-10-18] VITALS (7 sets, daily range): BP systolic 89–142; BP diastolic 38–91
--- NOTE | 2019-10-18 05:48 | NUR ---
PT AWAKE ON AND OFF THIS SHIFT. ASSESSMENT DOCUMENTED. MEDS GIVEN PER E-MAY. IV PATENT. PAIN AND NAUSEA MEDS GIVEN PER E-MAY. PT HAD SEVERAL EPISODES OF EMESIS THIS SHIFT. REMAINED AT BEDSIDE. WILL CONTINUE WITH PLAN OF CARE.
--- NOTE | 2019-10-18 06:58 | NUR ---
PTS REQUESTING PT NOT BE WOKEN AT THIS TIME TO GIVE MEDS. PT IS FINALLY RESTING. WANTING MEDS TO BE GIVEN WITH REST OF MORNING MEDS.
[2019-10-18 07:40] LABS: CALCIUM 8.4 mg/dL (8.5-10.1); CREATININE 3.6 mg/dL (0.6-1.3); POTASSIUM 5.8 mmol/L (3.5-5.1)
--- NOTE | 2019-10-18 10:34 | EKG ---
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: CCD : 1945 Requested By: Lindy Hoyos Order Number: [id number] MD: Neel Quiros Measurements Intervals [place] Rate: 73 P: NV: QRS: -93 QRSD: 224 T: 33 QT: 510 QTc: 563 Interpretive Statements Supraventricular rhythm of uncertain etiology Failure to sense of the ventricular channel on the pacing device Right bundle branch block Compared to ECG 10/06/2019 14:50:40 Failure to Sense now present Supraventricular rhythm with wide QRS duration is noted Electronically Signed On 10-18-2019 10:34:45 CDT by Neel Quiros [email or web address] <ELECTRONICALLY SIGNED> By: Neel Quiros MD, [facility] 10/18/19 1034 1046 1046 Neel Quiros MD, [facility] /EPI
--- NOTE | 2019-10-18 13:42 | NUR ---
CM spoke with Pt's in room at bedside. assists Pt with ADLs PRN, completes grooming set up and assists with dressing. Pt is able to feed himself. completes IADLs. Pt is able to ambulate short distances with a walker. Pt also has a wc, cane, shower bench and commode. Pt wears home o2 continous at 3.5-4L, provided through [facility]. Pt is current with [facility]. Hx of [facility]. Per , spoke with her regarding palliative/hospice. plans to speak with Pt's PCP re: palliative care/hospice prior to making a decision. CM following for dispo plan.
--- NOTE | 2019-10-18 18:41 | NUR ---
ASSUMED PT CARE AT 0730, PT LETHARGIC BUT RESPONDS TO VERBAL STIMULI. PT ORIENTED TO SELF AND PLACE, WAS NOTED TO BE RESPONDING TO INTERNAL STIMULI. PT C/O PAIN AND SHORTNESS OF BREATH, PAIN TREATED W/ PRN DILAUDID W/ SOME RELIEF AND SHORNTESS OF BREATH TREATED W/ REPOSITIONING TO SITTING IN A MORE UPRIGHT POSITION HELD UP W/ PILLOWS, SATS SITTING AROUND 92% WHEN CHECKED. PT VOMITING THIS MORNING, PRN ZOFRAN GIVEN W/ NO RELIEF, PRN PROMETHAZINE W/ RELIEF, NO MORE VOMITING OR C/O NAUSEA NOTED THROUGHOUT REST OF SHIFT. PT IN ROOM ALL DAY AND IS APPROVED TO STAY THE NIGHT W/ PT. PT REPOSITIONED Q2H WHEN HE ALLOWED IT TO AVOID FURTHER SKIN BREAKDOWN. DOBUTAMINE DRIP DC'D BY CARDIOLOGY BUT FLUIDS STILL INFUSING AT 50 ML/HR. PT HAD VERY POOR APPETITE THIS MORNING, ENCOURAGED EATING SMALL MEALS THROUGHOUT DAY OR SNACKS, PT APPETITE IMPROVED BY DINNER TIME. AM ASSESSMENT CHARTED, MEDS PER MAR, HOURLY ROUNDING OBSERVED, FALL PRECAUTIONS IN PLACE, CALL LIGHT W/IN REACH, WILL CONTINUE POC.
--- NOTE | 2019-10-18 23:51 | NUR ---
ASSESSMENT DOCUMENTED. REMAINED AT BEDSIDE. PT HAD EPISODE OF EMESIS THIS SHIFT, NAUSEA MEDS GIVEN PER E-MAR. PT ALERT AND IRRITABLE DURRING ASSESSMENT, WANTING TO BE LEFT ALONE. ON ROUNDING, PTS BREATHING HAD CHANGED TO GUPPY BREATHING, STATED THAT IT WAS THE MOST COMFORTABLE SHE HAD SEEN HER , WHEN ASKED ABOUT TREATMENT, SHE STATED THAT SHE WANTED US TO "LEAVE HIM BE" THAT HE WOULD NOT WANT ANY TREATMENT. NOTIFED OF IMMINENT . PT SHORTLY AFTER. , CONSULTING PHYSICAN, COLLAR STARCHER, MTN, AND HOME NOTIFIED. PRONOUNCED BY MYSELF AND Rico VARGAS RN.
--- NOTE | 2019-10-23 14:17 | CON ---
[address] [address] CONSULTATION Name: TONY TONEY Room: [address] IN ..#: [id number] Admission: 10/17/19 Attend Phys: Darrick Baca MD Discharge: 10/18/19 Date of : 45 Report #: [id number] THIS REPORT FOR: //name// cc: Neel Tariq John E. DO ~ THIS REPORT FOR: //name// CC: Darrick Tariq DATE OF SERVICE: 10/18/2019 REQUESTING PHYSICIAN: Darrick Baca MD. REASON FOR CONSULTATION: Progressive renal disease. HISTORY OF PRESENT ILLNESS: The patient is a 74-year-old gentleman with end-stage heart disease. I have reviewed Cardiology notes. Cardiology has recommended hospice and palliative care. The patient's is in the process of finding hospice care for the patient. He was brought here because of hypoxia. He also has progression of his renal disease. His creatinine is going up. His potassium is also increasing. PAST MEDICAL HISTORY: Significant for severe cardiomyopathy, chronic kidney disease stage 3, history of obesity, and history of dementia. SOCIAL HISTORY: Lives with his . No current tobacco or alcohol abuse. FAMILY HISTORY: Noncontributory. REVIEW OF SYSTEMS: Unobtainable due to his altered mental status. PHYSICAL EXAMINATION: GENERAL: He has altered mental status. VITAL SIGNS: Blood pressure fluctuates as low as 89/46 and up to 140/90, heart rate 73, and afebrile. HEENT: Pupils round. NECK: Fatty. LUNGS: Decreased air movements. CARDIOVASCULAR: Distant heart tones. ABDOMEN: Soft. LOWER EXTREMITIES: With edema. LABORATORY DATA: Reports significant for potassium 5.8, BUN 15, creatinine 3.6, serum sodium 134, and proBNP is 15,523. [place] [address] CONSULTATION Name: TONY TONEY Carolann Room: [address]#: [id number] Admission: 10/17/19 Attend Phys: Darrick Baca MD Discharge: 10/18/19 Date of : 45 Report #: [id number] ASSESSMENT: 1. End-stage heart disease with a cardiorenal syndrome. The patient is progressively deteriorating. There is no hope for meaningful recovery. Cardiology recommended hospice. 2. Progression of renal disease due to cardiorenal syndrome. PLAN: After careful review all the data and after discussing the case with my partner and with nurse and also with the patient's , I think that the best for the patient would be to proceed with comfort care. I will not make any changes in his medications and I advised to stop doing any blood draws and transfer him to the hospice house. <ELECTRONICALLY SIGNED> By: Carl Carballo MD 10/23/19 1417 1423 1727AMD paul Mercer
== END 2019-10-18 22:06 | DRG 291 ==
LOC: M.ERS 10:14 → M.TBA-ER 12:18 → M.2W 12:18
PROVIDERS: Personal Emergency Response Attendant; ADMIT Internal Medicine; ATTEND Internal Medicine
DX: I13.0 Hypertensive heart and chronic kidney disease with heart failure and stage 1 through stage 4 chronic kidney disease, or unspecified chronic kidney disease (principal); N17.0 Acute kidney failure with tubular necrosis; J96.21 Acute and chronic respiratory failure with hypoxia; I50.43 Acute on chronic combined systolic (congestive) and diastolic (congestive) heart failure; F11.20 Opioid dependence, uncomplicated; K56.7 Ileus, unspecified; I25.5 Ischemic cardiomyopathy; N18.3 Chronic kidney disease, stage 3 (moderate); E66.9 Obesity, unspecified; Z66 Do not resuscitate; I25.10 Atherosclerotic heart disease of native coronary artery without angina pectoris; G89.4 Chronic pain syndrome; J44.9 Chronic obstructive pulmonary disease, unspecified; E03.9 Hypothyroidism, unspecified; E87.5 Hyperkalemia; D64.9 Anemia, unspecified; F03.90 Unspecified dementia, unspecified severity, without behavioral disturbance, psychotic disturbance, mood disturbance, and anxiety; Z96.89 Presence of other specified functional implants; Z20.828 Contact with and (suspected) exposure to other viral communicable diseases; Z79.899 Other long term (current) drug therapy; Z87.01 Personal history of pneumonia (recurrent); I25.2 Old myocardial infarction; Z79.82 Long term (current) use of aspirin; Z88.0 Allergy status to penicillin; Z68.29 Body mass index [BMI] 29.0-29.9, adult